=== PATIENT | female | born 1945 | race Caucasian/White ===

== ENCOUNTER 2017-04-15 14:45 | Emergency (ER) | payer OTHER ==
[~2017-04-15] VITALS: Ht 160 cm; Wt 74.0 kg
[~2017-04-15 14:45] MED LIST: CALC600T9 PO; FLUO20CA34 PO; LEVO112T4 PO; OXYC-57 PO; PHEN37.585 PO
[2017-04-15 14:49] VITALS: TEMP 36.2; Ht 160 cm; Wt 74.0 kg
[2017-04-15] MEDS ORDERED: HYDROCODONE/ACETAMIN 5/325MG TAB PO ONE (15:45)
--- NOTE | 2017-04-15 16:00 | DIAGNOSTIC IMAGING REPORT ---
RIGHT SHOULDER 4 VIEWS; RIGHT HUMERUS 2 VIEWS CLINICAL HISTORY: Fall with right arm pain. FINDINGS: 4 views of the right shoulder with AP and lateral views of the right humerus are compared to right shoulder radiographs dated 06/01/2013. The skeletal structures are osteopenic. A right shoulder arthroplasty is in near anatomic alignment. No fracture or dislocation is seen in the right shoulder. Mild productive degenerative change is seen at the acromioclavicular joint. No humeral fracture is identified. The elbow joint is grossly maintained. The overlying soft tissues are within normal limits. The partially imaged right lung parenchyma appears clear. Healed right-sided rib fractures are noted. IMPRESSION: 1. There is no radiographic evidence of fracture or dislocation in the right shoulder noting an arthroplasty in place. 2. There is no radiographic evidence of right humeral fracture. Electronically signed by: Nick Palacios M.D. 04/15/2017 3:58 PM Dictated Date/Time: 04/15/2017 3:56 PM
--- NOTE | 2017-04-15 16:09 | EMERGENCY ROOM VISIT NOTE ---
ED Visit Note First contact with patient: 15:11 The patient was seen and examined with Celestine Fontaine PA-C. I agree with the history, physical and findings. Please see the note for disposition and details.
[2017-04-15] MEDS ORDERED: PHEN30CA PO (16:21)
[2017-04-15] MEDS ORDERED: LEVO100T7 PO (16:21)
[2017-04-15] MEDS ORDERED: FLUO20CA36 PO (16:21)
[2017-04-15] MEDS ORDERED: VITA600C4 PO (16:22)
[2017-04-15 16:45] VITALS: BP 160/88; PULSE 93; O2SAT 99
--- NOTE | 2017-04-15 23:40 | EMERGENCY ROOM VISIT NOTE ---
ED Visit Note First contact with patient: 15:11 Chief Complaint: Right shoulder pain. History of Present Illness: Ms. Pro is a 72-year-old white female who ambulates into the ED complaining of right shoulder and right proximal humerus pain. Historically patient reports she has had bilateral arthroplasties of the shoulders done approximately [address] Betancur. She has had no post surgical complications. Patient reports approximately 2 hours ago she was yelling at her cats and slipped and fell onto the floor. She reports that she fell onto her back and did strike her head at the time of the fall. She reports no loss of consciousness and since the fall she has been having no symptoms of head injury and denies neck and thoracic back pain. Currently she is placed in her discomfort over the humeral head and the distal aspect of the humerus just above the shoulder. She describes her pain as a throbbing and achy sensation. She rates her discomfort 5/10. Her pain worsens with all movements of the shoulder and palpation of the areas involved. She has not identified any alleviating factors related to the pain. She has not taken any medications for pain prior to arrival at the hospital. She denies any associated elbow pain, forearm pain, wrist pain, hand weakness/numbness/ tingling. Review of Systems: As noted above in history of present illness. 8 body systems were reviewed and found to be negative as noted above. Past Medical History: As previously noted and status post right hip arthroplasty , cholecystectomy and appendectomy. Current Medications: Medications Dose Route/Sig Max Daily Dose Days Date Category Dose Instructions Vitamin E 600 Unit Cap 600 Units PO DAILY 04/15/17 Reported Levothyroxine Sodium 100 Mcg Tab 100 Mcg PO DAILY 04/15/17 Reported Phentermine Hcl 30 Mg Cap 30 Mg PO DAILY 04/15/17 Reported Fluoxetine HCl 20 Mg Cap 20 Mg PO DAILY 04/15/17 Reported Calcium + D (Calcium Carbonate-Vitamin D) 1 Tab Tab 1 Tab PO BID 05/03/13 Reported Percocet 5MG/325MG (Oxycodone/Acetaminophen) Tab 1-2 Tablet PO Q4-6H PRN 01/22/13 Rx PAIN Allergies to Medications: Patient denies. Social History: Patient is not employed; she lives with her and feels safe in her home environment; she denies tobacco use and admits to alcohol use. Physical Examination: Vital Signs: Date Time Temp Pulse Resp B/P (MAP) Pulse Ox O2 Delivery O2 Flow Rate FiO2 04/15/17 16:45 93 18 160/88 99 04/15/17 14:49 36.2 93 18 160/89 99 GENERAL: 72-year-old female in mild to moderate distress due to pain, nontoxic- appearing, afebrile and hemodynamically stable. NEUROLOGICAL: Awake, alert and oriented to person, place and time. Answering questions appropriately and following commands. Normal gait. Cranial nerves II through XII grossly intact. Good short-term and long-term recall. No focal motor or sensory deficits. SKIN: Warm, dry and pink. No soft tissue trauma noted. HEENT: Atraumatic and normocephalic. Skull: No bony deformity, crepitus or ecchymosis. Mild tenderness over the occipital scalp. No raccoons eyes or ellington signs. No drainage from the ears of the nostril; no hemotympanum. Face : No bony deformity, bony crepitus, swelling or ecchymosis. PERRLA. EOMI without nystagmus. Sclera white and conjunctiva pink. No malocclusion. No intraoral trauma. Airway patent. Speech is normal and clear. Trachea midline. No jugular venous distention. BACK: No tenderness over the bony cervical, thoracic and lumbar spine. No tenderness throughout the paraspinous muscles. Full range of motion of the cervical spine. THORAX: Lungs sounds are clear to auscultation and equal bilaterally with symmetrical chest wall. No crepitus, tenderness, subcutaneous air or deformities noted. ABDOMEN: Flat, soft and nontender. Positive bowel sounds in all quadrants. No guarding, rigidity or organomegaly. RIGHT UPPER EXTREMITY: Right: No gross bony deformity. Mild tenderness over the humeral head. No tenderness over the clavicle, scapula or proximal humerus. She refuses to do range of motion exercise at the shoulder due to pain. Additionally there is tenderness over the medial aspect of the distal humerus without bony deformity, bony crepitus, swelling or ecchymosis. With the shoulder stabilized she has full range of motion in flexion and extension of the elbow and pronation and supination of the forearm. No tenderness in the right wrist, hand or fingers. Throughout the arm skin was warm and pink and capillary refill is brisk. She is able to distinguish light sensations to all dermatomes. ED Course: Patient is assessed as noted above. Patient's medication list was reviewed. Patient was given ice and one Thornton tablet 5/325 mg by mouth for pain. Additionally she was given ice for pain and discomfort. Right Shoulder X-Rays: Were read by myself and the radiologist showing no evidence of fracture dislocation of the right shoulder. Arthroplasty was noted to be in place. Right Humerus X-Rays: Were read by myself and the radiologist showing no acute fractures or dislocations. Patient was placed in a shoulder immobilizer. Patient's case was reviewed with Dr. Ortiz; he independently assessed the patient we agreed on diagnostic approach, treatment, disposition and plan. Patient was educated about today's findings and instructed on her treatment plan ; she verbalized understanding and agreement with this plan. Clinical Impression: Right shoulder pain. Right proximal humerus pain. Status post fall. Disposition: Patient discharged home in stable condition via taxi; she was reassessed and subjectively reported she was feeling better and rated her discomfort 4/10. Plan: Patient was encouraged to continue her current medications as prescribed including her recently prescribed Percocet for pain by her PCP. Patient was encouraged to use ice over areas of pain and/or swelling 5-6 times a day for 20-30 minutes. Patient was encouraged to use sling for 3-6 days or until pain-free. Patient was encouraged to follow-up with orthopedics if no better in 7 days. Patient was encouraged to return to the ED for worsening/uncontrolled pain, uncontrolled swelling, arm weakness/numbness/tingling or any new/concerning symptoms.
== END 2017-04-15 16:45 | disposition home or self-care (01) ==
LOC: C.EDB 14:46 → C.EDD 16:45
DX: M25.511 Pain in right shoulder (principal); W01.0XXA Fall on same level from slipping, tripping and stumbling without subsequent striking against object, initial encounter; Y92.019 Unspecified place in single-family (private) house as the place of occurrence of the external cause; Z96.611 Presence of right artificial shoulder joint; Z96.612 Presence of left artificial shoulder joint

== ENCOUNTER 2017-09-16 07:06 | Inpatient (IN) | payer OTHER ==
[2017-08-22 13:48] VITALS: BMI 29.0
--- NOTE | 2017-08-22 14:16 | PAT Medication Instructions ---
Service Date Aug 22, 2017. Current Home Medication List Calcium Carbonate-Vitamin D (Calcium), 1 TAB PO QAM Fluoxetine HCl (Fluoxetine HCl), 20 MG PO QAM Hydrocodone/Acetaminophen 5MG/325MG (Elk 5MG/325MG), 1-2 TABLET PO Q4 PRN for Pain Levothyroxine Sodium (Levothyroxine Sodium), 100 MCG PO QAM Multivitamin (Multivitamin), 1 TAB PO QAM Phentermine Hcl (Phentermine Hcl), 30 MG PO QAM Vitamin E (Vitamin E), 600 UNITS PO QAM Medication Instructions For Your Scheduled Surgery - Hold the following medications 2 weeks prior to surgery: Vitamin E (Vitamin E), 600 UNITS PO QAM - Hold the following medications the morning of surgery: Calcium Carbonate-Vitamin D (Calcium), 1 TAB PO QAM Multivitamin (Multivitamin), 1 TAB PO QAM Phentermine Hcl (Phentermine Hcl), 30 MG PO QAM - Take the following medications the morning of surgery with a sip of water: Fluoxetine HCl (Fluoxetine HCl), 20 MG PO QAM Hydrocodone/Acetaminophen 5MG/325MG (Elk 5MG/325MG), 1-2 TABLET PO Q4 PRN for Pain (if needed, may be taken up to four hours before surgery) Levothyroxine Sodium (Levothyroxine Sodium), 100 MCG PO QAM - Take the following medications as scheduled the night before surgery: Hydrocodone/Acetaminophen 5MG/325MG (Elk 5MG/325MG), 1-2 TABLET PO Q4 PRN for Pain (if needed) If you have any questions please call us at [phone] or [phone] or [phone]
[~2017-09-16] VITALS: Ht 160 cm; Wt 80.9 kg
[2017-09-16] VITALS (10 sets, daily range): BP systolic 109–172; BP diastolic 51–95; PULSE 54–77; TEMP 36.4–36.8; O2SAT 96–99; Ht 160 cm; Wt 80.9 kg
[~2017-09-16 07:06] MED LIST changes: +ACETAMINOPHEN 500 MG TAB PO SCH; +CALC-51 PO; -CALC600T9 PO; +CEFAZOLIN 1000MG IV PUSH 7.5 ML IV SCH; +CEFAZOLIN 2000MG IV PUSH 15 ML IV SCH; +CeleBREX 200 MG CAP PO SCH; +DEXAMETHASONE 4 MG TAB PO SCH; +FAMOTIDINE 20 MG TAB PO SCH; -FLUO20CA34 PO; +FLUO20CA36 PO; +GABAPENTIN 300 MG CAP PO SCH; +HYDR-5688 PO; +LACTATED RINGER'S 1000ML 1,000 ML IV SCH; +LACTATED RINGER'S 1000ML 500 ML IV SCH; +LEVO100T7 PO; -LEVO112T4 PO; +METOCLOPRAMIDE HCL 10 MG TAB PO SCH; +MULT-506 PO; -OXYC-57 PO; +PHEN30CA PO; -PHEN37.585 PO; +ROPIVACAINE 5MG/ML 30 ML 150 MG, BUPIVACAINE 0.5% MPF INJ 30 ML, EpINEphrine HCL INJ 0.... INFIL SCH; +VITA600C4 PO
[2017-09-16] MEDS ORDERED: ROPIVACAINE 0.5% 5 MG/ML 30 ML VIAL ONE (07:07)
[2017-09-16] MEDS ORDERED: BUPIVACAINE 0.5 % 5 MG/1 ML PF 10ML VIAL ONE (07:08)
[2017-09-16] MEDS ORDERED: FENTANYL CITRATE INJ 50 MCG/1 ML 2 ML VIAL ONE (07:52)
[2017-09-16] MEDS ORDERED: PROPOFOL IV EMULSION 10 MG/ML 20 ML VIAL ONE (07:52)
[2017-09-16] MEDS ORDERED: LIDOCAINE HCL 2% 2 ML VIAL (20MG/ML) ONE (07:52)
--- NOTE | 2017-09-16 07:53 | History & Physical Bridge Note ---
H&P Re-Evaluation Bridge Note: I have examined the patient, reviewed the History & Physical and in the interval since the performance of the History & Physical I have noted the following changes of clinical significance: No changes noted
[2017-09-16] MEDS ORDERED: ORTHO JOINT ANESTHETIC ONE (08:06)
[2017-09-16] MEDS ORDERED: BACITRACIN 50000 UNIT VIAL ONE (08:06)
[2017-09-16] MEDS ORDERED: POVIDONE-IODINE OP SOLN 30 ML BTL ONE (08:06)
[2017-09-16] MEDS ORDERED: MIDAZOLAM HCL 1 MG/ML 2ML VIAL ONE ×2 (08:09→09:22)
[2017-09-16] MEDS ORDERED: ATROPINE SULFATE 0.1 MG/ML 5ML SYR IV PRN (08:45)
[2017-09-16] MEDS ORDERED: HYDROmorphone INJ 1 MG/ML SYR IV PRN (08:45)
[2017-09-16] MEDS ORDERED: ONDANSETRON INJ 2 MG/ML 2 ML VIAL IV PRN ×2 (08:45→12:00)
[2017-09-16] MEDS ORDERED: FENTANYL CITRATE INJ 50 MCG/1 ML 2 ML VIAL IV PRN (08:45)
[2017-09-16] MEDS ORDERED: EpHEDrine SULFATE INJ 50 MG/ML AMP IV PRN (08:45)
[2017-09-16] MEDS: TRANEXAMIC ACID INJ 1,000 MG x 2 Bags IV SCH ×4 (09:36→21:01)
[2017-09-16] MEDS ORDERED: LABETALOL HCL IV 5 MG/ML 20ML ONE (10:12)
[2017-09-16] MEDS ORDERED: EpHEDrine SULFATE 50MG/5ML SYR ONE (10:42)
--- NOTE | 2017-09-16 11:11 | [facility] Operative Report ---
Operative Report Operative Date Sep 16, 2017. Pre-Operative Diagnosis Left Knee Osteoarthritis Post-Operative Diagnosis Same Procedure(s) Performed Left Total Knee Arthroplasty, Cemented Surgeon Dr. Rubin Victoria Packing And Stamping Machine Operator Surgeon(s) Manjit Gardiner PA-C Estimated Blood Loss 20ml Specimens Permanent Solution: A.) Left Knee Bone and Tissue Drains 2 Hemovac Anesthesia Type MAC Spinal Regional Complication(s) none Disposition Recovery Room / PACU Indications The patient is a 72-year-old female long-standing osteophytic of the left knee. She has failed conservative measures including injection and anti- inflammatories and rehab. She wishes to proceed with a left total knee arthroplasty. Description of Procedure Risks benefits and alternatives of surgery including but not limited to infection, DVT, pain, stiffness, need for surgery, damage to blood vessels, damage to nerves or risks of anesthesia were discussed with the patient and they wished to proceed. The patient was identified and the laterality was confirmed and marked. They received a preoperative antibiotic as well as a spinal anesthetic and an abductor canal block. A well-padded tourniquet was applied and then the limb was prepped and draped in standard manner with ChloraPrep. The limb was exsanguinated and the tourniquet was inflated. I made a standard anterior incision. I sharply incised the skin then utilized Bovie electrocautery as well as the aqua mantis to achieve hemostasis. I made a medial parapatellar arthrotomy and mobilized the patella laterally. I then excised the anterior horns of the medial and lateral meniscus as well as the infrapatellar fat pad. I elevated a portion of the MCL off of the tibia. I then pinned into place a patient-matched distal femoral cutting guide and made my distal femoral resection. I then pinned into place the 5 in 1 femoral cutting guide. I made my anterior, posterior and chamfer cuts. The lateral femoral condyle was significantly hypoplastic. There was minimal resection on the lateral femoral condyle initially with a size 5. I downsized to a size 4 this still gave us a good fit. I then excised the cruciates and the remaining portions of the menisci. I then pinned into place a patient-matched tibial cutting guide and made my tibial resection. I then pinned into place the tibial plate a utilizing alignment maureen to confirm rotation. I then cut for the post. Utilizing a lamina marker maker and I then removed posterior osteophytes off the femur. I then placed a trial femur into position and cut for the trochlear component. I then sequentially trialed to size the polyethylene. She had a fairly severe preoperative valgus deformity. She still was loose on the medial side. I changed to a constrained liner. I then trialed up to a size 13. I needed to release the popliteus tendon as well as piecrust and partially release the iliotibial band. This gave us much better soft tissue balancing and range of motion. I then prepared the patella with a freehand cut utilizing sagittal saw. I sized and drilled for the patella. There was lateral tracking to the patella. A lateral release was needed. The bone particularly the tibia was quite soft so I placed a small tibial post. In order to do this a sequentially reamed up to a size 14 x 100 mm stem. All the trial components were removed. The deep tissues were anesthetized with an ortho mix solution. Then with Simplex HV with gentamicin cement, I cemented my definitive components. Definitive components, Turner and Nephew Rory 2: Femur 4 Tibia 4 with a 14 x 100 mm stem Poly 13 constrained Patella 32 oval A betadine soak was performed. A deep drain was placed. The arthrotomy was closed with interrupted #1 Vicryl suture subcutaneous tissue was closed with interrupted 2-0 Vicryl suture. The skin was closed with with noah. A lopez wound VAC and Acticoat dressing were placed. Sterile dressings were applied. All needle and sponge counts were correct at the end of the procedure patient was transferred to the PACU in stable condition without apparent complication. The PA-C was necessary for assistance with procedure for assistance in positioning, prepping, draping, retraction and closure. I attest to the content of the Intraoperative Record and any orders documented therein. Any exceptions are noted below.
[2017-09-16] MEDS ORDERED: MAGNESIUM HYDROXIDE SUSP 30 ML UDC PO PRN (12:00)
[2017-09-16] MEDS ORDERED: ALUMINUM/MAGNESIUM/SIMETH (MAALOX MAX) 30 ML UDC PO PRN (12:00)
[2017-09-16] MEDS ORDERED: BISACODYL 10 MG SUPP PR PRN (12:00)
[2017-09-16] MEDS ORDERED: CEFAZOLIN IV 1,000 MG in DEXTROSE 5% 50ML 50 ML IV SCH (12:00)
--- NOTE | 2017-09-16 12:53 | Anesthesiology Progress Note ---
Anesthesia Post Op Note Date & Time Sep 16, 2017 at 12:53 Vital Signs Pain Intensity: 0 Vital Signs Past 12 Hours Date Time Temp Pulse Resp B/P (MAP) Pulse Ox O2 Delivery O2 Flow Rate FiO2 09/16/17 12:45 36.4 52 21 118/91 98 Nasal Cannula 4 09/16/17 12:35 51 13 109/60 98 Nasal Cannula 4 09/16/17 12:25 54 20 130/78 100 Nasal Cannula 09/16/17 12:15 54 14 119/92 99 Nasal Cannula 4 09/16/17 12:05 47 15 142/74 100 Oxymask 10 09/16/17 11:55 52 16 126/58 100 Oxymask 10 09/16/17 11:45 36.0 51 23 129/64 99 Oxymask 10 09/16/17 07:55 36.4 55 18 172/95 96 Room Air Notes Mental Status: alert / awake / arousable, participated in evaluation Pt Amnestic to Procedure: Yes Nausea / Vomiting: adequately controlled Pain: adequately controlled Airway Patency, RR, SpO2: stable & adequate BP & HR: stable & adequate Hydration State: stable & adequate Neuraxial Anesthesia: was administered, sensory block is resolving Anesthetic Complications: no major complications apparent
--- NOTE | 2017-09-16 12:58 | DIAGNOSTIC IMAGING REPORT ---
LEFT KNEE 2 VIEWS History: Left total knee arthroplasty. Degenerative arthritis. Postop. FINDINGS: The patient is status post a left total knee arthroplasty. The hardware is intact. No fracture or dislocation. Skin noah and surgical drains are in place. IMPRESSION: Left total knee arthroplasty. No evidence for hardware complication. Electronically signed by: Kale García M.D. 09/16/2017 12:57 PM Dictated Date/Time: 09/16/2017 12:38 PM
[2017-09-16] MEDS ORDERED: PROMETHAZINE HCL INJ 12.5 MG in SODIUM CHLORIDE 0.9% 50ML 50 ML IV PRN (13:30)
[2017-09-16] MEDS ORDERED: IV FLUIDS COMPLETED PRN (13:45)
[2017-09-16 14:48] LABS: BASO % 0.2 %; BASO ABS # 0.01 K/uL (0-0.2); EOS % 0.2 %; EOS ABS # 0.01 K/uL (0-0.5); HEMATOCRIT 40.5 % (37-47); HEMOGLOBIN 12.7 g/dL (12.0-16.0); IG# 0.02 K/uL (0.00-0.02); LYMPH % 12.9 %; LYMPH ABS # 0.69 K/uL (1.2-3.4); MEAN CELL VOLUME 100.5 fL (80-100); MEAN CORPUSCULAR HEMOGLOBIN 31.5 pg (25-34); MEAN CORPUSCULAR HGB CONC 31.4 g/dl (32-36); MEAN PLATELET VOLUME 10.5 fL (7.4-10.4); MONO % 1.9 %; NEUT % 84.4 %; NEUT ABS # 4.51 K/uL (1.4-6.5); PLATELET COUNT 204 K/uL (130-400); RED CELL DISTRIBUTION WIDTH SD 47.9 fL (36.4-46.3); WHITE BLOOD COUNT 5.34 K/uL (4.8-10.8)
[2017-09-16] MEDS ORDERED: PNEUMOCOCCAL ADMINISTRATION CHARGE ONE (15:00)
[2017-09-16] MEDS ORDERED: PNEUMOCOCCAL POLYSACCHARIDES 25 MCG/0.5 ML VIAL/SYR IM. ONE (15:00)
[2017-09-16 15:17] LABS: CALCIUM 8.5 mg/dl (8.5-10.1); CREATININE 0.83 mg/dl (0.60-1.20); POTASSIUM 3.9 mmol/L (3.5-5.1)
[2017-09-16] MEDS: D5W AND 1/2NSS + 20MEQ KCL 1,000 ML IV SCH (15:28)
[2017-09-16] MEDS: ACETAMINOPHEN 500 MG TAB PO SCH (17:11)
[2017-09-16] MEDS: FERROUS GLUCONATE 324 MG TAB PO SCH (17:11)
[2017-09-16] MEDS: CEFAZOLIN IV 1,000 MG in SYRINGE 0 ML IV SCH (17:28)
--- NOTE | 2017-09-16 18:55 | Medical Consult ---
Consultation Date of Consultation: Sep 16, 2017. Attending Physician: Rubin Victoria M.D. Reason for Consultation: Sinus arrhythmia with first-degree AV block History of Present Illness 72-year-old female history of depression, hypothyroidism, narcolepsy presenting after Left total knee arthroplasty. Patient follows with Dr. Reyes for primary care. Patient underwent a left total knee arthroplasty today under general and and spinal anesthesia. Apparently during surgery, the patient had hypotensive episode and was given labetalol IV. She was noted to have sinus bradycardia with first-degree AV block on EKG. She was then transferred to telemetry for monitoring. Evaluated the patient with present at bedside. Patient was very drowsy could not give review of systems. She appeared comfortable with oxygen supplementation by nasal cannula. I returned to her room around 6 PM. Patient was then awake alert oriented 3, in good spirits. She states she feels fine, no chest pain shortness of breath dizziness nausea palpitations. Denies other symptoms Past Medical/Surgical History Medical Problems: (1) Dehydration Status: Acute (2) Facial laceration Status: Acute (3) Fracture of left clavicle Status: Acute (4) Heme positive stool Status: Acute (5) Recurrent dislocation, right hip Status: Acute (6) Right shoulder pain Status: Acute Family History Cancer Social History Smoking Status: Never Smoker Drug Use: none Marital Status: Housing Status: lives with significant other Occupation Status: retired Allergies Coded Allergies: No Known Allergies (Unverified , 09/16/17) Current Inpatient Medications Current Inpatient Medications Medications (Trade) Dose Ordered Sig/Candido Route Start Time Stop Time Status Last Admin Dose Admin Lactated Ringer's 1,000 ml @ 15 mls/hr Q24H IV 09/16/17 06:00 09/17/17 05:59 09/16/17 08:11 15 MLS/HR Levothyroxine Sodium (Synthroid Tab) 100 mcg DAILYBB PO 09/17/17 06:00 10/17/17 05:59 Multivitamins (Multivitamin Tab) 1 tab QAM PO 09/17/17 09:00 10/17/17 08:59 Potassium Chloride/Dextrose/ Sod Cl 1,000 ml @ 100 mls/hr Q10H IV 09/16/17 13:30 09/17/17 13:29 09/16/17 15:28 100 MLS/HR Celecoxib (CeleBREX CAP) 200 mg BID PO 09/16/17 21:00 10/16/17 20:59 Oxycodone HCl (Roxicodone Immediate Rel Tab) 1 TABLET FOR PAIN RATING... Q4H PRN PO 09/16/17 12:00 09/30/17 11:59 Acetaminophen (Tylenol Tab) 1,000 mg Q8H PO 09/16/17 16:00 10/16/17 15:59 09/16/17 17:11 1,000 MG Magnesium Hydroxide (Milk Of Magnesia Susp) 30 ml Q6H PRN PO 09/16/17 12:00 10/16/17 11:59 Bisacodyl (Dulcolax Supp) 10 mg DAILY PRN UT 09/16/17 12:00 10/16/17 11:59 Senna (Senokot Tab) 17.2 mg HS PO 09/16/17 21:00 10/16/17 20:59 Docusate Sodium (coLACE CAP) 100 mg BID PO 09/16/17 21:00 10/16/17 20:59 Al Hydrox/Mg Hydrox/Simethicone (Maalox Max Susp) 15 ml Q4H PRN PO 09/16/17 12:00 10/16/17 11:59 Ondansetron HCl (Zofran Inj) 4 mg Q6H PRN IV 09/16/17 12:00 10/16/17 11:59 Ferrous Gluconate (Ferrous Gluconate Tab) 324 mg TIDM PO 09/16/17 16:45 10/16/17 16:44 09/16/17 17:11 324 MG Aspirin (Ecotrin Tab) 81 mg BID PO 09/16/17 21:00 10/16/17 20:59 Promethazine HCl 12.5 mg/Sodium Chloride 50.5 ml @ 204 mls/hr Q6H PRN IV 09/16/17 13:30 10/16/17 13:29 Cefazolin Sodium 1000 mg/Syringe 7.5 ml @ 2.5 mls/min Q8H IV 09/16/17 18:00 09/17/17 17:59 09/16/17 17:28 2.5 MLS/MIN Miscellaneous (Iv Fluids Completed) 1 ea PRN PRN N/A 09/16/17 13:45 09/16/18 13:44 Miscellaneous Information (Order Awaiting Action) 1 ea QS N/A 09/16/17 16:00 10/16/17 15:59 Review of Systems Altered systems reviewed negative except what was mentioned above. Physical Exam Date Time Temp Pulse Resp B/P (MAP) Pulse Ox O2 Delivery O2 Flow Rate FiO2 09/16/17 16:42 Nasal Cannula 2.0 09/16/17 15:55 77 125/51 (75) 97 09/16/17 15:10 61 18 118/78 (91) 99 Nasal Cannula 2.0 09/16/17 14:48 36.5 64 20 110/62 (78) 98 Nasal Cannula 2.0 09/16/17 14:17 58 14 109/74 (86) 98 Nasal Cannula 2.0 09/16/17 13:32 54 15 113/72 (86) 96 Nasal Cannula 2.0 09/16/17 13:17 36.7 56 14 127/77 (94) 97 Nasal Cannula 2.0 09/16/17 13:12 36.4 55 16 125/78 (94) 96 Nasal Cannula 2.0 09/16/17 12:55 59 12 124/78 98 Nasal Cannula 4 09/16/17 12:45 36.4 52 21 118/91 98 Nasal Cannula 4 09/16/17 12:35 51 13 109/60 98 Nasal Cannula 4 09/16/17 12:25 54 20 130/78 100 Nasal Cannula 4 09/16/17 12:15 54 14 119/92 99 Nasal Cannula 4 09/16/17 12:05 47 15 142/74 100 Oxymask 10 09/16/17 11:55 52 16 126/58 100 Oxymask 10 09/16/17 11:45 36.0 51 23 129/64 99 Oxymask 10 09/16/17 07:55 36.4 55 18 172/95 96 Room Air General Appearance: WD/WN, no apparent distress Head: normocephalic, atraumatic Eyes: normal inspection, PERRL, sclerae normal ENT: normal ENT inspection, hearing grossly normal, TMs normal, pharynx normal Neck: supple, no adenopathy, thyroid normal, no JVD, trachea midline Respiratory/Chest: chest non-tender, lungs clear, normal breath sounds, no respiratory distress, no accessory muscle use Cardiovascular: no edema, no JVD, no murmur, + bradycardia (High 50s) Abdomen/GI: normal bowel sounds Back: normal inspection, no CVA tenderness Extremities/Musculoskelatal: + pertinent finding (Heavy dressing present on the left leg with drain in place; right leg essentially normal) Neurologic/Psych: lining cementer II-XII nml as tested, no motor/sensory deficits, alert, normal mood/affect, oriented x 3 Skin: normal color, warm/dry, no rash Lymphatic: no adenopathy Laboratory Results Last 24 Hours Test 09/16/17 13:27 White Blood Count 5.34 K/uL Red Blood Count 4.03 M/uL Hemoglobin 12.7 g/dL Hematocrit 40.5 % Mean Corpuscular Volume 100.5 fL Mean Corpuscular Hemoglobin 31.5 pg Mean Corpuscular Hemoglobin Concent 31.4 g/dl Platelet Count 204 K/uL Mean Platelet Volume 10.5 fL Neutrophils (%) (Auto) 84.4 % Lymphocytes (%) (Auto) 12.9 % Monocytes (%) (Auto) 1.9 % Eosinophils (%) (Auto) 0.2 % Basophils (%) (Auto) 0.2 % Neutrophils # (Auto) 4.51 K/uL Lymphocytes # (Auto) 0.69 K/uL Monocytes # (Auto) 0.10 K/uL Eosinophils # (Auto) 0.01 K/uL Basophils # (Auto) 0.01 K/uL RDW Standard Deviation 47.9 fL RDW Coefficient of Variation 13.0 % Immature Granulocyte % (Auto) 0.4 % Immature Granulocyte # (Auto) 0.02 K/uL Sodium Level 139 mmol/L Potassium Level 3.9 mmol/L Chloride Level 108 mmol/L Carbon Dioxide Level 25 mmol/L Anion Gap 6.0 mmol/L Blood Urea Nitrogen 16 mg/dl Creatinine 0.83 mg/dl Est Creatinine Clear Calc Drug Dose 57.9 ml/min Estimated GFR () 80.5 Estimated GFR (Non- 69.5 BUN/Creatinine Ratio 19.3 Random Glucose 126 mg/dl Calcium Level 8.5 mg/dl Magnesium Level 1.9 mg/dl Assessment & Plan 72-year-old female history of depression, hypothyroidism, narcolepsy presenting after Left total knee arthroplasty. Patient follows with Dr. Sulman for primary care. Sinus bradycardia, sinus arrhythmia and first-degree AV block Likely secondary to labetalol Previous EKG for hospital records showing sinus bradycardia Repeat EKG postop showing sinus bradycardia with sinus arrhythmia and first degree AV block --Hold off on any beta blockers --Monitor closely in telemetry --Repeat EKG in the morning --Electrolytes ordered, unremarkable Prolonged QT Initial EKG showed QT of 524 Repeat EKG showing QT of 490s Hold fluoxetine Repeat EKG in a.m. Repeat loculates in the morning including magnesium Hypertensive episode Was given labetalol in the [place] Blood pressure now improved Continue to monitor Hold phentermine for now History of narcolepsy Hold phentermine in light of hypertensive episode depression Hold fluoxetine in light of prolonged QT Hypothyroidism Continue levothyroxine 100 mcg daily Status post TKA Postop day 0 Further management per Ortho DVT prophylaxis Per Ortho Thank you for this consultation. We will follow the patient with you during their hospital stay. You can reach a member of the [facility] Hospitalist Team 30/08 via pager @ .
[2017-09-16] MEDS: OXYCODONE HCL IR 5 MG TAB (IMMEDIATE RELEASE) PO PRN (19:54)
[2017-09-16] MEDS: ASPIRIN 81 MG ECTAB PO SCH (21:08)
[2017-09-16] MEDS: SENNA 8.6 MG TAB PO SCH (21:08)
[2017-09-16] MEDS: DOCUSATE SODIUM 100 MG CAP PO SCH (21:08)
[2017-09-16] MEDS: CeleBREX 200 MG CAP PO SCH (21:10)
[2017-09-17] MEDS: ACETAMINOPHEN 500 MG TAB PO SCH ×4 (00:49→23:10)
[2017-09-17] MEDS: D5W AND 1/2NSS + 20MEQ KCL 1,000 ML IV SCH ×2 (01:55→09:30)
[2017-09-17] MEDS: OXYCODONE HCL IR 5 MG TAB (IMMEDIATE RELEASE) PO PRN ×6 (01:58→22:45)
[2017-09-17] MEDS: CEFAZOLIN IV 1,000 MG in SYRINGE 0 ML IV SCH ×2 (02:00→11:18)
[2017-09-17 03:16] VITALS: BP 110/62; PULSE 66; TEMP 36.6; O2SAT 95
[2017-09-17] MEDS: LEVOTHYROXINE 100 MCG TAB PO SCH (05:42)
[2017-09-17 06:45] VITALS: BP 123/66; PULSE 55; TEMP 36.5; O2SAT 97
[2017-09-17 07:41] LABS: HEMOGLOBIN 10.2 g/dL (12.0-16.0); MEAN CELL VOLUME 98.5 fL (80-100); MEAN CORPUSCULAR HEMOGLOBIN 31.4 pg (25-34); MEAN CORPUSCULAR HGB CONC 31.9 g/dl (32-36); PLATELET COUNT 193 K/uL (130-400); RED CELL DISTRIBUTION WIDTH CV 12.8 % (11.5-14.5); RED CELL DISTRIBUTION WIDTH SD 46.6 fL (36.4-46.3); WHITE BLOOD COUNT 12.47 K/uL (4.8-10.8)
[2017-09-17] MEDS: MULTIVITAMIN TAB PO SCH (07:44)
[2017-09-17] MEDS: DOCUSATE SODIUM 100 MG CAP PO SCH ×2 (07:45→20:53)
[2017-09-17] MEDS: CeleBREX 200 MG CAP PO SCH ×2 (07:45→20:53)
[2017-09-17] MEDS: FERROUS GLUCONATE 324 MG TAB PO SCH ×3 (07:45→17:41)
[2017-09-17] MEDS: ASPIRIN 81 MG ECTAB PO SCH ×2 (07:45→20:53)
[2017-09-17 08:19] LABS: CALCIUM 8.2 mg/dl (8.5-10.1); CREATININE 0.76 mg/dl (0.60-1.20); POTASSIUM 4.8 mmol/L (3.5-5.1)
[2017-09-17] MEDS ORDERED: FLUOXETINE HCL 20 MG CAP PO SCH (09:00)
[2017-09-17] MEDS ORDERED: PHENTERMINE HCL 30 MG PO SCH (09:00)
--- NOTE | 2017-09-17 09:10 | Orthopedic Progress Note ---
Orthopedic Progress Note Date of Service Sep 17, 2017. Subjective Post OP Day: 1 Reports: feeling well, Denies: chest pain, SOB, nausea / vomiting, light headedness, calf pain Additional Notes: CURRENTLY ON TELEMETRY. POST OP BRADYCARDIA AND 1ST DEGREE BLOCK POST OP. NO COMPLAINTS. NO FURTHER EPISODES. Objective calves soft nontender, N/V intact, capillary refill less than 2 sec., dressing C /D/I (KRISHNA), A&O x3, toes mobile, hemovac drainage (305/150CC PER SHIFT) Date Time Temp Pulse Resp B/P (MAP) Pulse Ox O2 Delivery O2 Flow Rate FiO2 09/17/17 06:45 36.5 55 18 123/66 (85) 97 Room Air 09/17/17 03:16 36.6 66 18 110/62 (78) 95 Room Air 09/16/17 23:22 36.4 75 18 114/58 (76) 96 Room Air 09/16/17 20:20 36.8 60 24 121/69 (86) 96 Room Air 09/16/17 20:00 Room Air 09/16/17 16:42 Nasal Cannula 2.0 09/16/17 15:55 77 125/51 (75) 97 09/16/17 15:10 61 18 118/78 (91) 99 Nasal Cannula 2.0 09/16/17 14:48 36.5 64 20 110/62 (78) 98 Nasal Cannula 2.0 09/16/17 14:17 58 14 109/74 (86) 98 Nasal Cannula 2.0 09/16/17 13:32 54 15 113/72 (86) 96 Nasal Cannula 2.0 09/16/17 13:17 36.7 56 14 127/77 (94) 97 Nasal Cannula 2.0 09/16/17 13:12 36.4 55 16 125/78 (94) 96 Nasal Cannula 2.0 09/16/17 12:55 59 12 124/78 98 Nasal Cannula 4 09/16/17 12:45 36.4 52 21 118/91 98 Nasal Cannula 4 09/16/17 12:35 51 13 109/60 98 Nasal Cannula 4 09/16/17 12:25 54 20 130/78 100 Nasal Cannula 4 09/16/17 12:15 54 14 119/92 99 Nasal Cannula 4 09/16/17 12:05 47 15 142/74 100 Oxymask 10 09/16/17 11:55 52 16 126/58 100 Oxymask 10 09/16/17 11:45 36.0 51 23 129/64 99 Oxymask 10 Laboratory Results 24 Hours: Test 09/16/17 13:27 09/17/17 07:31 White Blood Count 5.34 K/uL Red Blood Count 4.03 M/uL Hemoglobin 12.7 g/dL 10.2 g/dL Hematocrit 40.5 % 32.0 % Mean Corpuscular Volume 100.5 fL Mean Corpuscular Hemoglobin 31.5 pg Mean Corpuscular Hemoglobin Concent 31.4 g/dl Platelet Count 204 K/uL Mean Platelet Volume 10.5 fL Neutrophils (%) (Auto) 84.4 % Lymphocytes (%) (Auto) 12.9 % Monocytes (%) (Auto) 1.9 % Eosinophils (%) (Auto) 0.2 % Basophils (%) (Auto) 0.2 % Neutrophils # (Auto) 4.51 K/uL Lymphocytes # (Auto) 0.69 K/uL Monocytes # (Auto) 0.10 K/uL Eosinophils # (Auto) 0.01 K/uL Basophils # (Auto) 0.01 K/uL Assessment & Plan Assessment: POD#1 SP LEFT TKA Plan: PT/OT DVT PROPH- ASA 81MG BID PAIN MANAGEMENT MEDICAL MANAGEMENT- WILL AWAIT THEIR EVAL TODAY. ORTHOPEDICALLY STABLE FOR TRANSFER TO [facility] [place]. DC PLANNING - PATIENT REQUESTING INPT REHAB STAY, LIKELY REFER TO [facility]. ANTICIPATE DC TOMORROW IF MEDICALLY STABLE. DC DRESSING/DRAIN IN AM.
[2017-09-17] MEDS ORDERED: FLUOXETINE HCL 20 MG CAP PO ONE (10:00)
[2017-09-17 12:42] VITALS: BP 133/63; PULSE 58; TEMP 36.7; O2SAT 98
[2017-09-17 15:25] VITALS: BP 162/81; PULSE 55; TEMP 36.5; O2SAT 98
[2017-09-17 15:28] VITALS: BP 133/63; PULSE 84; O2SAT 98
--- NOTE | 2017-09-17 17:07 | Progress Note ---
Medicine Progress Note Date & Time of Visit: Sep 17, 2017 at 17:04. Subjective seen resting in bed, comfortable in good spirits states she feels fine overall except for left knee pain when ambulating denies chest pain, dyspnea, palpitations, dizziness, nausea no drowsiness today no other symptoms Objective Last 8 Hrs Date Time Temp Pulse Resp B/P (MAP) Pulse Ox O2 Delivery O2 Flow Rate FiO2 09/17/17 15:50 Room Air 09/17/17 15:28 84 98 09/17/17 15:25 36.5 55 16 162/81 (108) 98 Room Air 09/17/17 12:52 36.7 58 18 98 09/17/17 12:45 Room Air 09/17/17 12:42 36.7 58 18 133/63 (86) 98 Room Air Physical Exam: General- oriented x 3, not in distress, speaks in sentences with no effort Head- atraumatic Eyes- anicteric ENT- oropharynx clear Neck- supple, no JVD Lungs- clear breath sounds bilaterally, no rales/wheezes Heart- regular rhythm; no murmur, normal rate- HR 60s Abdomen- normal bowel sounds, soft, nontender Extremities- no pretibial edema,left lower leg with heavy dressing in place- drain in lace, small amount of blood noted Neuro- alert, oriented x 3; no gross gocal defici Skin- warm & dry Laboratory Results: Last 24 Hours Test 09/17/17 07:31 White Blood Count 12.47 K/uL Red Blood Count 3.25 M/uL Hemoglobin 10.2 g/dL Hematocrit 32.0 % Mean Corpuscular Volume 98.5 fL Mean Corpuscular Hemoglobin 31.4 pg Mean Corpuscular Hemoglobin Concent 31.9 g/dl RDW Standard Deviation 46.6 fL RDW Coefficient of Variation 12.8 % Platelet Count 193 K/uL Mean Platelet Volume 10.0 fL Sodium Level 136 mmol/L Potassium Level 4.8 mmol/L Chloride Level 105 mmol/L Carbon Dioxide Level 26 mmol/L Anion Gap 5.0 mmol/L Blood Urea Nitrogen 17 mg/dl Creatinine 0.76 mg/dl Est Creatinine Clear Calc Drug Dose 65.4 ml/min Estimated GFR () 89.6 Estimated GFR (Non- 77.3 BUN/Creatinine Ratio 22.7 Random Glucose 133 mg/dl Calcium Level 8.2 mg/dl Magnesium Level 2.0 mg/dl Assessment & Plan 72-year-old female history of depression, hypothyroidism, narcolepsy presenting after Left total knee arthroplasty. Patient follows with Dr. Reyes for primary care. Sinus bradycardia, sinus arrhythmia and first-degree AV block Likely secondary to labetalol Previous EKG for hospital records showing sinus bradycardia 1st degree av block - 2012 and 2017 Repeat EKG postop showing sinus bradycardia with sinus arrhythmia and first degree AV block 09/17: sinus fina with 1st deg av block patient asymptomatic --Hold off on any beta blockers -- monitor Prolonged QT Initial EKG showed QT of 524 Repeat EKG showing QT of 490s 09/17: QT improved to 477 resume fluoxetine Hypertensive episode Was given labetalol in the OR Blood pressure improving Continue to monitor Hold phentermine for now History of narcolepsy Hold phentermine in light of hypertensive episode Depression resume Fluoxetine Hypothyroidism Continue levothyroxine 100 mcg daily Status post TKA Postop day 1 Further management per Ortho, including DVT prophylaxis Thank you for this consultation. We will follow the patient with you during their hospital stay. You can reach a member of the [facility] Hospitalist Team 30/08 via pager @ . Current Inpatient Medications: Current Inpatient Medications Medications (Trade) Dose Ordered Sig/Candido Route Start Time Stop Time Status Last Admin Dose Admin Levothyroxine Sodium (Synthroid Tab) 100 mcg DAILYBB PO 09/17/17 06:00 10/17/17 05:59 09/17/17 05:42 100 MCG Multivitamins (Multivitamin Tab) 1 tab QAM PO 09/17/17 09:00 10/17/17 08:59 09/17/17 07:44 1 TAB Celecoxib (CeleBREX CAP) 200 mg BID PO 09/16/17 21:00 10/16/17 20:59 09/17/17 07:45 200 MG Oxycodone HCl (Roxicodone Immediate Rel Tab) 1 TABLET FOR PAIN RATING... Q4H PRN PO 09/16/17 12:00 09/30/17 11:59 09/17/17 15:50 10 MG Acetaminophen (Tylenol Tab) 1,000 mg Q8H PO 09/16/17 16:00 10/16/17 15:59 09/17/17 15:49 1,000 MG Magnesium Hydroxide (Milk Of Magnesia Susp) 30 ml Q6H PRN PO 09/16/17 12:00 10/16/17 11:59 Bisacodyl (Dulcolax Supp) 10 mg DAILY PRN NM 09/16/17 12:00 10/16/17 11:59 Senna (Senokot Tab) 17.2 mg HS PO 09/16/17 21:00 10/16/17 20:59 09/16/17 21:08 17.2 MG Docusate Sodium (coLACE CAP) 100 mg BID PO 09/16/17 21:00 10/16/17 20:59 09/17/17 07:45 100 MG Al Hydrox/Mg Hydrox/Simethicone (Maalox Max Susp) 15 ml Q4H PRN PO 09/16/17 12:00 10/16/17 11:59 Ondansetron HCl (Zofran Inj) 4 mg Q6H PRN IV 09/16/17 12:00 10/16/17 11:59 Ferrous Gluconate (Ferrous Gluconate Tab) 324 mg TIDM PO 09/16/17 16:45 10/16/17 16:44 09/17/17 11:55 324 MG Aspirin (Ecotrin Tab) 81 mg BID PO 09/16/17 21:00 10/16/17 20:59 09/17/17 07:45 81 MG Promethazine HCl 12.5 mg/Sodium Chloride 50.5 ml @ 204 mls/hr Q6H PRN IV 09/16/17 13:30 10/16/17 13:29 Cefazolin Sodium 1000 mg/Syringe 7.5 ml @ 2.5 mls/min Q8H IV 09/16/17 18:00 09/17/17 17:59 09/17/17 11:18 2.5 MLS/MIN Miscellaneous (Iv Fluids Completed) 1 ea PRN PRN N/A 09/16/17 13:45 09/16/18 13:44 Miscellaneous Information (Order Awaiting Action) 1 ea QS N/A 09/16/17 16:00 10/16/17 15:59 Fluoxetine HCl (Prozac Cap) 20 mg QAM PO 09/18/17 09:00 10/18/17 08:59
[2017-09-17] MEDS: SENNA 8.6 MG TAB PO SCH (20:53)
[2017-09-17 23:15] VITALS: BP 165/80; PULSE 59; TEMP 36.5; O2SAT 98
[2017-09-18] MEDS: OXYCODONE HCL IR 5 MG TAB (IMMEDIATE RELEASE) PO PRN ×6 (02:29→23:37)
[2017-09-18] MEDS: LEVOTHYROXINE 100 MCG TAB PO SCH (05:40)
[2017-09-18 06:07] VITALS: BP 160/77
[2017-09-18 07:30] VITALS: BP 165/72; PULSE 61; TEMP 36.5; O2SAT 98
[2017-09-18] MEDS: FERROUS GLUCONATE 324 MG TAB PO SCH ×3 (08:14→17:34)
[2017-09-18] MEDS: DOCUSATE SODIUM 100 MG CAP PO SCH ×2 (08:14→20:31)
[2017-09-18] MEDS: CeleBREX 200 MG CAP PO SCH ×2 (08:14→20:31)
[2017-09-18] MEDS: FLUOXETINE HCL 20 MG CAP PO SCH (08:14)
[2017-09-18] MEDS: MULTIVITAMIN TAB PO SCH (08:14)
[2017-09-18] MEDS: ASPIRIN 81 MG ECTAB PO SCH ×2 (08:14→20:31)
[2017-09-18] MEDS: ACETAMINOPHEN 500 MG TAB PO SCH ×3 (08:15→23:37)
[2017-09-18] MEDS: AMLODIPINE BESYLATE 5 MG TAB PO SCH (08:21)
[2017-09-18] MEDS ORDERED: KETOROLAC TROMETHAMINE 15 MG/ML VIAL IV. STA (09:47)
--- NOTE | 2017-09-18 10:04 | Orthopedic Progress Note ---
Orthopedic Progress Note Date of Service Sep 18, 2017. Subjective Post OP Day: 2 Reports: feeling well, Denies: chest pain, SOB, nausea / vomiting, light headedness, calf pain Additional Notes: TRANSFERRED FROM TELEMETRY YESTERDAY. NO FURTHER CARDIAC ISSUES. CURRENTLY HAVING SOME PAIN CONTROL ISSUES. RATING KNEE PAIN 25/10 SINCE THIS AM. STAT TORADOL ORDERED AND SHE IS GETTING THAT NOW. Objective calves soft nontender, N/V intact, capillary refill less than 2 sec., incision C /D/I, A&O x3, toes mobile, hemovac drainage (hemovac removed but drainage from site. dressing reinforced.) Date Time Temp Pulse Resp B/P (MAP) Pulse Ox O2 Delivery O2 Flow Rate FiO2 09/18/17 07:43 Room Air 09/18/17 07:30 36.5 61 18 165/72 (103) 98 Room Air 09/18/17 06:07 160/77 (104) 09/17/17 23:53 Room Air 09/17/17 23:15 36.5 59 17 165/80 (108) 98 Room Air 09/17/17 15:50 Room Air 09/17/17 15:28 84 98 09/17/17 15:25 36.5 55 16 162/81 (108) 98 Room Air 09/17/17 12:52 36.7 58 18 98 09/17/17 12:45 Room Air 09/17/17 12:42 36.7 58 18 133/63 (86) 98 Room Air Assessment & Plan Assessment: POD#2 SP LEFT TKA Plan: PT/OT DVT PROPH- ASA 81MG BID PAIN MANAGEMENT- JADON, CELEBREX, TYLENOL- STAT TORADOL ORDERED. MAY CONSIDER ADDING OXYCONTIN BASELINE IF CONTINUED PAIN. MEDICAL MANAGEMENT- DC PLANNING - PATIENT REQUESTING INPT REHAB STAY, LIKELY REFER TO [facility]. WILL NEED TO PLACE REFERRALS TUESDAY. KRISHNA X 7 DAYS.
[2017-09-18] MEDS: OXYCODONE HCL 10 MG TABCR (OXYCONTIN) PO SCH ×2 (10:30→20:31)
[2017-09-18] MEDS ORDERED: OXYCODONE HCL 10 MG TABCR (OXYCONTIN) PO ONE (10:33)
[2017-09-18 12:16] LABS: HEMATOCRIT 30.4 % (37-47); HEMOGLOBIN 9.6 g/dL (12.0-16.0)
--- NOTE | 2017-09-18 13:54 | Progress Note ---
Medicine Progress Note Date & Time of Visit: Sep 18, 2017 at 13:53. Subjective seen resting in bed, in good spirits reports having increased pain on the left knee from last night til this morning pain improving denies headache, dizziness, nausea/vomiting, chest pain, dyspnea, palpitations no other symptoms Objective Last 8 Hrs Date Time Temp Pulse Resp B/P (MAP) Pulse Ox O2 Delivery O2 Flow Rate FiO2 09/18/17 07:43 Room Air 09/18/17 07:30 36.5 61 18 165/72 (103) 98 Room Air 09/18/17 06:07 160/77 (104) Physical Exam: General- oriented x 3, not in distress, speaks in sentences with no effort Eyes- anicteric Neck- no JVD Lungs- clear BS bilaterally no rales/wheezes Heart- regular rhythm; no murmur, normal rate- HR 60s Abdomen- normal bowel sounds, soft, nontender Extremities- no pretibial edema,left lower leg with heavy dressing in place- drain in place, blood noted Neuro- alert, oriented x 3; no gross focal deficits Skin- warm & dry Laboratory Results: Last 24 Hours Test 09/18/17 11:54 Hemoglobin 9.6 g/dL Hematocrit 30.4 % Assessment & Plan 72-year-old female history of depression, hypothyroidism, narcolepsy presenting after Left total knee arthroplasty. Patient follows with Dr. Reyes for primary care. Sinus bradycardia, sinus arrhythmia and first-degree AV block Likely secondary to labetalol Previous EKG for hospital records showing sinus bradycardia 1st degree av block - 2012 and 2017 Repeat EKG postop showing sinus bradycardia with sinus arrhythmia and first degree AV block 09/17: sinus fina with 1st deg av block remains asymptomatic --Hold off on any beta blockers -- monitor Prolonged QT Initial EKG showed QT of 524 Repeat EKG showing QT of 490s 09/17: QT improved to 477 resumed fluoxetine Hypertensive episode Was given labetalol in the OR Blood pressure elevated today, also having pain start Amlodipine 2.5 mg po daily Hold phentermine for now History of narcolepsy Hold phentermine in light of hypertensive episode Depression resume Fluoxetine Hypothyroidism Continue levothyroxine 100 mcg daily Status post TKA Postop day 2 Further management per Ortho, including DVT prophylaxis Thank you for this consultation. We will follow the patient with you during their hospital stay. You can reach a member of the [facility] Hospitalist Team 30/08 via pager @ . Current Inpatient Medications: Current Inpatient Medications Medications (Trade) Dose Ordered Sig/Candido Route Start Time Stop Time Status Last Admin Dose Admin Levothyroxine Sodium (Synthroid Tab) 100 mcg DAILYBB PO 09/17/17 06:00 10/17/17 05:59 09/18/17 05:40 100 MCG Multivitamins (Multivitamin Tab) 1 tab QAM PO 09/17/17 09:00 10/17/17 08:59 09/18/17 08:14 1 TAB Celecoxib (CeleBREX CAP) 200 mg BID PO 09/16/17 21:00 10/16/17 20:59 09/18/17 08:14 200 MG Oxycodone HCl (Roxicodone Immediate Rel Tab) 1 TABLET FOR PAIN RATING... Q4H PRN PO 09/16/17 12:00 09/30/17 11:59 09/18/17 10:35 10 MG Acetaminophen (Tylenol Tab) 1,000 mg Q8H PO 09/16/17 16:00 10/16/17 15:59 09/18/17 08:15 1,000 MG Magnesium Hydroxide (Milk Of Magnesia Susp) 30 ml Q6H PRN PO 09/16/17 12:00 10/16/17 11:59 Bisacodyl (Dulcolax Supp) 10 mg DAILY PRN NH 09/16/17 12:00 10/16/17 11:59 Senna (Senokot Tab) 17.2 mg HS PO 09/16/17 21:00 10/16/17 20:59 09/17/17 20:53 17.2 MG Docusate Sodium (coLACE CAP) 100 mg BID PO 09/16/17 21:00 10/16/17 20:59 09/18/17 08:14 100 MG Al Hydrox/Mg Hydrox/Simethicone (Maalox Max Susp) 15 ml Q4H PRN PO 09/16/17 12:00 10/16/17 11:59 Ondansetron HCl (Zofran Inj) 4 mg Q6H PRN IV 09/16/17 12:00 10/16/17 11:59 Ferrous Gluconate (Ferrous Gluconate Tab) 324 mg TIDM PO 09/16/17 16:45 10/16/17 16:44 09/18/17 12:31 324 MG Aspirin (Ecotrin Tab) 81 mg BID PO 09/16/17 21:00 10/16/17 20:59 09/18/17 08:14 81 MG Promethazine HCl 12.5 mg/Sodium Chloride 50.5 ml @ 204 mls/hr Q6H PRN IV 09/16/17 13:30 10/16/17 13:29 Miscellaneous (Iv Fluids Completed) 1 ea PRN PRN N/A 09/16/17 13:45 09/16/18 13:44 Miscellaneous Information (Order Awaiting Action) 1 ea QS N/A 09/16/17 16:00 10/16/17 15:59 Fluoxetine HCl (Prozac Cap) 20 mg QAM PO 09/18/17 09:00 10/18/17 08:59 09/18/17 08:14 20 MG Amlodipine Besylate (Norvasc Tab) 2.5 mg QAM PO 09/18/17 09:00 10/18/17 08:59 09/18/17 08:21 2.5 MG Oxycodone HCl (Oxycontin Tab) 10 mg Q12 PO 09/18/17 10:30 10/02/17 10:29
[2017-09-18 15:36] VITALS: BP 136/74; PULSE 56; TEMP 36.5; O2SAT 96
[2017-09-18] MEDS: SENNA 8.6 MG TAB PO SCH (20:31)
[2017-09-18 23:39] VITALS: BP 152/69; PULSE 61
[2017-09-18 23:43] VITALS: BP 186/74; PULSE 62; TEMP 36.4; O2SAT 95
[2017-09-19] VITALS: BP 152/69; PULSE 61
[2017-09-19] MEDS: OXYCODONE HCL IR 5 MG TAB (IMMEDIATE RELEASE) PO PRN ×5 (04:07→22:43)
[2017-09-19] MEDS: LEVOTHYROXINE 100 MCG TAB PO SCH (06:18)
[2017-09-19 06:23] LABS: HEMATOCRIT 29.1 % (37-47)
[2017-09-19 06:38] VITALS: BP 161/70; PULSE 67; TEMP 36.5; O2SAT 97
[2017-09-19] MEDS ORDERED: CLB200 PO (07:28)
[2017-09-19] MEDS ORDERED: ACET-1138 PO (07:28)
[2017-09-19] MEDS ORDERED: RXC5 PO (07:28)
[2017-09-19] MEDS ORDERED: ASPI-320 PO (07:28)
--- NOTE | 2017-09-19 07:35 | Discharge Instructions ---
Discharge Instructions Date of Service Sep 19, 2017. Admission Reason for Admission: Unilateral Primary Osteoarthritis Left Knee Discharge Discharge Diagnosis / Problem: Left Knee osteoarthritis Discharge Goals Goal(s): Decrease discomfort, Improve function Activity Recommendations Activity Level: Up Ad Ayana Therapies: Physical Therapy, Occupational Therapy . Additional Information Patient informed of condition: Yes Advance Directives: Yes DNR: No Level of Care: Skilled Communicable Disease: No Prognosis: Stable Instructions / Follow-Up Instructions / Follow-Up ACTIVITY RECOMMENDATIONS: SELF CARE INSTRUCTIONS AFTER TOTAL KNEE REPLACEMENT A. You may need to continue a physical therapy program after discharge from the hospital. There are several options available to you. Your doctor will assist you in selecting the best one for you. 1. An out-patient facility 2 to 3 times a week for therapy or home therapy. 2. Continue working on all exercises taught to you in the hospital. Your goals should be to increase bending of your knee to 90 degrees and beyond and to fully straighten your knee. B. You may progress at your own pace from walking with a walker or crutches to a cane; then to no assistive devices. C. Make walking a part of your daily routine. Be up as much as comfortable with rest periods throughout the day. Rest with leg elevation is very important. Use the ice wrap frequently for the first 3-4 weeks. D. There are no restrictions on activities. You may ride in a car, shop, participate in magistrate judge and all social activities. E. Wear the long elastic stockings (KYLAH hose) 20 hours a day for 2 weeks after surgery. They can be removed several times a day for laundering and for a bath. F. You may shower, no tub baths until cleared by your doctor. Do not soak the wound. SPECIAL CARE INSTRUCTIONS: VERY IMPORTANT TO READ AND REVIEW A. There are a few signs you need to watch for after you are home. Call [facility] if you notice any of the followin. Increased severe knee pain. Some pain is expected especially when you exercise. 2. Increased swelling in your leg or knee; pain or swelling of the calf muscle in either lower leg. 3. Any fluid drainage from the incision. 4. Shortness of breath or chest pain. B. Please call [facility] at if you have any concerns or questions about your operation or recovery. The doctor or his nurse will return your call promptly. C. You must take antibiotics before dental work, bladder, bowel or other surgery. Your doctor will provide you with a permanent care to carry describing this precaution. IMPORTANT: * REMEMBER TO TAKE ASPIRIN, 81 MG, TWICE DAILY FOR 4 WEEKS UNLESS OTHERWISE DIRECTED. THIS IS YOUR BLOOD THINNER. * HIGH RISK PATIENTS MAY BE PRESCRIBED A STRONGER BLOOD THINNER. THIS WILL BE PROVIDED AT DISCHARGE. * CALL IF INCREASED PAIN, REDNESS, DRAINAGE OR FEVER GREATER THAT 101. * WEAR KYLAH HOSE 20 HOURS PER DAY FOR 2 WEEKS. * CHANGE DRESSING DAILY USING ABD'S. WHEN WOUND IS DRY, YOU MAY LEAVE TO THE OPEN AIR. FOLLOW UP VISIT: If appointment is not already scheduled: Please call [facility] to make a follow-up appointment for 2 weeks after your surgery at . Current Hospital Diet Patient's current hospital diet: Regular Diet Discharge Diet Recommended Diet: Regular Diet Procedures Procedures Performed: Left Total Knee Arthroplasty, Cemented Pending Studies Studies pending at discharge: no Physician Orders On Transfer Dressing Changes: Daily as noted above in instructions Vital Signs: routine Laboratory Results Hemoglobin A1c Test 08/22/17 14:34 Range/Units Estimated Average Glucose 108 mg/dl Hemoglobin A1c 5.4 4.5-5.6 % Medical Emergencies . Who to Call and When: Medical Emergencies: If at any time you feel your situation is an emergency, please call 911 immediately. . Non-Emergent Contact Non-Emergency issues call your: Surgeon Call Non-Emergent contact if: temperature is above 101, your pain is not controlled, your pain is worsening, your pain is concerning you, wound has increased drainage, wound has increased redness, wound has increased pain . . "Provider Documentation" section prepared by Celestine Momin. . Core Measure Problem Core Measures: None [place] Drug Monitoring Program Search Results: patient reviewed within database, no issues identified
--- NOTE | 2017-09-19 07:37 | Orthopedic Progress Note ---
Orthopedic Progress Note Date of Service Sep 19, 2017. Subjective Post OP Day: 3 Reports: feeling well, Denies: complaints, chest pain, SOB, calf pain Objective calves soft nontender, N/V intact, dressing C/D/I, A&O x3, toes mobile Date Time Temp Pulse Resp B/P (MAP) Pulse Ox O2 Delivery O2 Flow Rate FiO2 09/19/17 06:38 36.5 67 20 161/70 (100) 97 Room Air 09/19/17 00:00 61 152/69 (96) 09/18/17 23:43 36.4 62 18 186/74 (111) 95 Room Air 09/18/17 23:35 Room Air 09/18/17 15:36 36.5 56 16 136/74 (94) 96 Room Air 09/18/17 15:10 Room Air 09/18/17 07:43 Room Air Laboratory Results 24 Hours: Test 09/18/17 11:54 09/19/17 05:59 Hematocrit 30.4 % 29.1 % Hemoglobin 9.6 g/dL 9.0 g/dL Assessment & Plan Assessment: POD#3 SP LEFT TKA Acute Blood loss anemia-Hgb 9.0 today Plan: PT/OT DVT PROPH- ASA 81MG BID PAIN MANAGEMENT- JADON, CELEBREX, TYLENOL-Pain controlled today, much improved from yesterday MEDICAL MANAGEMENT- DC PLANNING - PATIENT REQUESTING INPT REHAB STAY, LIKELY REFER TO [facility]. WILL NEED TO PLACE REFERRALS TODAY. KRISHNA X 7 DAYS. Acute Blood loss anemia likely secondary to surgical loss vs dilutional effect.
--- NOTE | 2017-09-19 07:44 | Anesthesiology Progress Note ---
Anesthesia Post Op Note Date & Time Sep 19, 2017 at 07:43 Vital Signs Pain Intensity: 7 Vital Signs Past 12 Hours Date Time Temp Pulse Resp B/P (MAP) Pulse Ox O2 Delivery O2 Flow Rate FiO2 09/19/17 06:38 36.5 67 20 161/70 (100) 97 Room Air 09/19/17 00:00 61 152/69 (96) 09/18/17 23:43 36.4 62 18 186/74 (111) 95 Room Air 09/18/17 23:35 Room Air Notes Mental Status: alert / awake / arousable Nausea / Vomiting: adequately controlled Pain: improving with treatment Airway Patency, RR, SpO2: stable & adequate BP & HR: stable & adequate Hydration State: stable & adequate Neuraxial Anesthesia: was administered, sensory block resolved pt states she is okay where pain is at. She does not want more pain medication
[2017-09-19] MEDS: OXYCODONE HCL 10 MG TABCR (OXYCONTIN) PO SCH ×2 (08:21→20:41)
[2017-09-19] MEDS: DOCUSATE SODIUM 100 MG CAP PO SCH ×2 (08:22→20:41)
[2017-09-19] MEDS: CeleBREX 200 MG CAP PO SCH ×2 (08:22→20:41)
[2017-09-19] MEDS: FERROUS GLUCONATE 324 MG TAB PO SCH ×3 (08:22→17:10)
[2017-09-19] MEDS: FLUOXETINE HCL 20 MG CAP PO SCH (08:22)
[2017-09-19] MEDS: MULTIVITAMIN TAB PO SCH (08:22)
[2017-09-19] MEDS: ASPIRIN 81 MG ECTAB PO SCH ×2 (08:22→20:41)
[2017-09-19] MEDS: AMLODIPINE BESYLATE 5 MG TAB PO SCH (08:23)
[2017-09-19] MEDS: ACETAMINOPHEN 500 MG TAB PO SCH ×3 (08:24→23:45)
[2017-09-19 15:36] VITALS: BP 138/70; PULSE 59; TEMP 36.8; O2SAT 96
--- NOTE | 2017-09-19 18:12 | Progress Note ---
Medicine Progress Note Date & Time of Visit: Sep 19, 2017 at 18:09. Subjective seen resting in bedside chair , in good spirits states she feels fine overall ambulated in the hallways with no dizziness, chest pain, dyspnea no other symptoms Objective Last 8 Hrs Date Time Temp Pulse Resp B/P (MAP) Pulse Ox O2 Delivery O2 Flow Rate FiO2 09/19/17 15:36 36.8 59 16 138/70 (92) 96 Room Air Physical Exam: General- oriented x 3, not in distress, speaks in sentences with no effort Eyes- anicteric Neck- no JVD Lungs- clear BS bilaterally Heart- regular rhythm; no murmur, normal rate- HR 60s Abdomen- normal bowel sounds, soft, nontender Extremities- no pretibial edema,left lower leg with dressing in place- no drainage/bleeding right leg- essentially normal Neuro- alert, oriented x 3; no gross focal deficits Skin- warm & dry Laboratory Results: Last 24 Hours Test 09/19/17 05:59 Hemoglobin 9.0 g/dL Hematocrit 29.1 % Assessment & Plan 72-year-old female history of depression, hypothyroidism, narcolepsy presenting after Left total knee arthroplasty. Patient follows with Dr. Reyes for primary care. Sinus bradycardia, sinus arrhythmia and first-degree AV block Likely secondary to labetalol Previous EKG for hospital records showing sinus bradycardia 1st degree av block - 2012 and 2017 Repeat EKG postop showing sinus bradycardia with sinus arrhythmia and first degree AV block 09/17: sinus fina with 1st deg av block clinically doing well no cardiac symptoms avoid beta blockers Prolonged QT Initial EKG showed QT of 524 Repeat EKG showing QT of 490s 09/17: QT improved to 477 resumed fluoxetine Hypertensive episode Was given labetalol in the OR Blood pressure elevated post op, also having pain started Amlodipine 2.5 mg po daily BP improving monitor Hold phentermine for now History of narcolepsy Hold phentermine in light of hypertensive episode Depression resume Fluoxetine Hypothyroidism Continue levothyroxine 100 mcg daily Status post TKA stable overall Further management per Ortho, including DVT prophylaxis Thank you for this consultation. We will follow the patient with you during their hospital stay. You can reach a member of the [facility]ist Team 30/08 via pager @ . Current Inpatient Medications: Current Inpatient Medications Medications (Trade) Dose Ordered Sig/Candido Route Start Time Stop Time Status Last Admin Dose Admin Levothyroxine Sodium (Synthroid Tab) 100 mcg DAILYBB PO 09/17/17 06:00 10/17/17 05:59 09/19/17 06:18 100 MCG Multivitamins (Multivitamin Tab) 1 tab QAM PO 09/17/17 09:00 10/17/17 08:59 09/19/17 08:22 1 TAB Celecoxib (CeleBREX CAP) 200 mg BID PO 09/16/17 21:00 10/16/17 20:59 09/19/17 08:22 200 MG Oxycodone HCl (Roxicodone Immediate Rel Tab) 1 TABLET FOR PAIN RATING... Q4H PRN PO 09/16/17 12:00 09/30/17 11:59 09/19/17 13:30 10 MG Acetaminophen (Tylenol Tab) 1,000 mg Q8H PO 09/16/17 16:00 10/16/17 15:59 09/19/17 17:11 1,000 MG Magnesium Hydroxide (Milk Of Magnesia Susp) 30 ml Q6H PRN PO 09/16/17 12:00 10/16/17 11:59 Bisacodyl (Dulcolax Supp) 10 mg DAILY PRN KS 09/16/17 12:00 10/16/17 11:59 Senna (Senokot Tab) 17.2 mg HS PO 09/16/17 21:00 10/16/17 20:59 09/18/17 20:31 17.2 MG Docusate Sodium (coLACE CAP) 100 mg BID PO 09/16/17 21:00 10/16/17 20:59 09/19/17 08:22 100 MG Al Hydrox/Mg Hydrox/Simethicone (Maalox Max Susp) 15 ml Q4H PRN PO 09/16/17 12:00 10/16/17 11:59 Ondansetron HCl (Zofran Inj) 4 mg Q6H PRN IV 09/16/17 12:00 10/16/17 11:59 Ferrous Gluconate (Ferrous Gluconate Tab) 324 mg TIDM PO 09/16/17 16:45 10/16/17 16:44 09/19/17 17:10 324 MG Aspirin (Ecotrin Tab) 81 mg BID PO 09/16/17 21:00 10/16/17 20:59 09/19/17 08:22 81 MG Promethazine HCl 12.5 mg/Sodium Chloride 50.5 ml @ 204 mls/hr Q6H PRN IV 09/16/17 13:30 10/16/17 13:29 Miscellaneous (Iv Fluids Completed) 1 ea PRN PRN N/A 09/16/17 13:45 09/16/18 13:44 Miscellaneous Information (Order Awaiting Action) 1 ea QS N/A 09/16/17 16:00 10/16/17 15:59 Fluoxetine HCl (Prozac Cap) 20 mg QAM PO 09/18/17 09:00 10/18/17 08:59 09/19/17 08:22 20 MG Amlodipine Besylate (Norvasc Tab) 2.5 mg QAM PO 09/18/17 09:00 10/18/17 08:59 09/19/17 08:23 2.5 MG Oxycodone HCl (Oxycontin Tab) 10 mg Q12 PO 09/18/17 10:30 10/02/17 10:29 09/19/17 08:21 10 MG
[2017-09-19] MEDS: SENNA 8.6 MG TAB PO SCH (20:41)
[2017-09-19 23:45] VITALS: BP 132/75; PULSE 60; TEMP 36.7; O2SAT 96
[2017-09-20] MEDS: OXYCODONE HCL IR 5 MG TAB (IMMEDIATE RELEASE) PO PRN ×2 (02:51→07:34)
[2017-09-20] MEDS: LEVOTHYROXINE 100 MCG TAB PO SCH (06:03)
[2017-09-20 07:18] VITALS: BP 153/79; PULSE 59; TEMP 36.5; O2SAT 97
[2017-09-20] MEDS ORDERED: NRV5 PO (07:36)
[2017-09-20] MEDS: CeleBREX 200 MG CAP PO SCH (08:48)
[2017-09-20] MEDS: MULTIVITAMIN TAB PO SCH (08:48)
[2017-09-20] MEDS: ACETAMINOPHEN 500 MG TAB PO SCH (08:48)
[2017-09-20] MEDS: DOCUSATE SODIUM 100 MG CAP PO SCH (08:48)
[2017-09-20] MEDS: FERROUS GLUCONATE 324 MG TAB PO SCH (08:48)
[2017-09-20] MEDS: ASPIRIN 81 MG ECTAB PO SCH (08:48)
[2017-09-20] MEDS: AMLODIPINE BESYLATE 5 MG TAB PO SCH (08:49)
[2017-09-20] MEDS: FLUOXETINE HCL 20 MG CAP PO SCH (08:49)
[2017-09-20] MEDS: OXYCODONE HCL 10 MG TABCR (OXYCONTIN) PO SCH (08:52)
--- NOTE | 2017-09-20 09:14 | Orthopedic Progress Note ---
Orthopedic Progress Note Date of Service Sep 20, 2017. Subjective Post OP Day: 4 Reports: feeling well Additional Notes: Pt having pain off and on but states the pain meds are helping. Objective calves soft nontender, N/V intact, dressing C/D/I (KRISHNA dressing), A&O x3, toes mobile Date Time Temp Pulse Resp B/P (MAP) Pulse Ox O2 Delivery O2 Flow Rate FiO2 09/20/17 07:18 36.5 59 18 153/79 (103) 97 Room Air 09/19/17 23:45 36.7 60 16 132/75 (94) 96 Room Air 09/19/17 20:35 Room Air 09/19/17 15:36 36.8 59 16 138/70 (92) 96 Room Air Assessment & Plan Assessment: POD#3 SP LEFT TKA Acute Blood loss anemia Plan: PT/OT DVT PROPH- ASA 81MG BID PAIN MANAGEMENT- JADON, CELEBREX, TYLENOL MEDICAL MANAGEMENT- DC PLANNING - TO [facility] TODAY KRISHNA REMOVED DUE TO INCREASED DRAINAGE FROM DRAIN SITE THAT WAS COLLECTING UNDER THE TEGADERM PORTION OF THE DRESSING. WILL REVERT TO REGULAR DRESSING. Acute Blood loss anemia likely secondary to surgical loss vs dilutional effect. Inhouse Planning Pain Management: Celebrex, Oxycontin, PO Tylenol, Oxy IR DVT Prophylaxis: TEDs, SCDs, ASA Discharge Planning Discharge Planning: intermediate facility
[2017-09-20] MEDS ORDERED: OXYSR10 PO (09:16)
[2017-09-20 10:20] VITALS: BP 153/79; PULSE 75; TEMP 36.5; O2SAT 97
--- NOTE | 2017-09-27 09:54 | DISCHARGE SUMMARY ---
DISCHARGE DIAGNOSIS: Degenerative joint disease, left knee. SECONDARY DIAGNOSES: Depression, hypothyroidism, narcolepsy. CONSULTS: Parveen Dunaway MD COMPLICATIONS: None. PROCEDURES: Left total knee arthroplasty performed by Dr. Victoria on 09/16/2017. BRIEF HISTORY: As dictated in the history and physical. HOSPITAL SUMMARY: The patient was admitted on the above noted date and had the above noted surgery performed which she tolerated well. On her first postoperative day, she was feeling well. She was currently on telemetry for postop bradycardia and first-degree heart block. She had no complaints and no further episodes. Calves were soft and nontender. Neurovascularly intact. Dressings were clean, dry, and intact. Toes were mobile. Vital signs were stable and she was afebrile. Hemoglobin was 12.7 and she was started on physical therapy protocol and continued on DVT prophylaxis and pain management and medical management and plans were to transfer her to the orthopedic floor when okay with medicine service. By her second postoperative day, she had [facility] floor. She had no further cardiac issues. She was having some pain control issues regarding her knee pain fairly high. Some stat Toradol was ordered. Calves were soft and nontender, neurovascularly intact. Incision was clean, dry, and intact. Toes were mobile. Vital signs were stable. Blood pressure was elevated likely due to pain. OxyContin was added as baseline if continued pain and she was also continued on her oxycodone IR, Celebrex, and Tylenol, as well as IV pain medication if needed. Patient was planning for a rehab stay and it was likely going [place] [facility]. Over the next several days, she was getting better pain control and slowly progressing with her PT and by 09/20/2017, she was having pain off and on, but stated that the pain meds were helping her. Calves were soft and nontender. Neurovascularly was intact. Dressings were clean, dry, and intact. Toes were mobile, but it was noted that she was having some increased drainage around the drain holes that was covered by the KRISHNA dressing and instead of having this continue to drain underneath and decompress against the skin, the KRISHNA was removed and a regular dressing was placed. She was otherwise remaining medically stable as well as orthopedically stable and it was felt that she could be discharged to [facility] on 09/20/2017. For further review, please see chart. LABORATORY AND X-RAY DATA: As per chart. DISCHARGE INSTRUCTIONS: Patient was discharged to [facility] on 09/20/2017. DIET: Regular. ACTIVITY: Weightbearing as tolerated on the affected extremity. Follow TKA instruction sheets and special care instructions. Patient to have PT and OT protocols and follow up with Dr. Victoria in 2 weeks. Patient to call for appointment if one has not been made for you. DISCHARGE MEDICATIONS: Acetaminophen 1000 mg p.o. q. 8 hours for 21 days, amlodipine 2.5 mg p.o. q.a.m. for 30 days, aspirin 81 mg p.o. b.i.d. for 30 days, Celebrex 200 mg p.o. b.i.d. for 30 days, oxycodone 5 mg 1-2 tablets p.o. q. 4-6 hours p.r.n., OxyContin 10 mg p.o. q. 12 hours for 3 days. Resume home meds as listed and stop taking hydrocodone.
== END 2017-09-20 11:28 | DRG 470 ==
LOC: C.ACU 07:06 → C.2T 11:56 → CANRESERV 12:11 → ENRESERV 12:11 → EDBEDREQTM 12:39 → EDBEDREQ 12:39 → EDBEDREQSVC 12:39 → ENRESERV 12:54 → C.3E 09-17 12:32
PROVIDERS: ADMIT Orthopaedic Surgery; ATTEND Orthopaedic Surgery
PROC: 0SRD0J9 Replacement of Left Knee Joint with Synthetic Substitute, Cemented, Open Approach (ICD-10-PCS; principal; 2017-09-16 09:30)
DX: M17.12 Unilateral primary osteoarthritis, left knee (principal); D62 Acute posthemorrhagic anemia; E03.9 Hypothyroidism, unspecified; I44.0 Atrioventricular block, first degree; F32.9 Major depressive disorder, single episode, unspecified; G47.419 Narcolepsy without cataplexy; R00.1 Bradycardia, unspecified; I10 Essential (primary) hypertension; T44.8X5A Adverse effect of centrally-acting and adrenergic-neuron-blocking agents, initial encounter; Y92.239 Unspecified place in hospital as the place of occurrence of the external cause

== ENCOUNTER 2018-09-27 15:46 | Inpatient (IN) ==
[2018-09-27] MEDS ORDERED: ATROPINE SULFATE 0.1 MG/ML 10ML SYR IV STA (16:37)
[2018-09-27] MEDS ORDERED: MAGNESIUM SULFATE / D5W 1 GM/100 ML BAG IV ONE (16:37)
[2018-09-27] MEDS ORDERED: SODIUM CHLORIDE 0.9% 1000ML 500 ML IV ONE (16:39)
[2018-09-27 17:13] LABS: Basophils # (auto) 0.02 K/uL (0-0.2); Basophils % (auto) 0.3 %; Eosinophils # (auto) 0.08 K/uL (0-0.5); Eosinophils % (auto) 1.3 %; Hematocrit (blood only) 42.5 % (37-47); Hemoglobin 13.6 g/dL (12.0-16.0); Immature Granulocytes # (auto) 0.01 K/uL (0.00-0.02); Immature Granulocytes % (auto) 0.2 %; Lymphocytes % (auto) 16.2 %; Mean Corpuscular Volume 98.2 fL (80-100); Mean Platelet Volume 10.6 fL (7.4-10.4); Monocytes # (auto) 0.76 K/uL (0.11-0.59); Monocytes % (auto) 12.3 %; Neutrophils # (auto) 4.31 K/uL (1.4-6.5); Neutrophils % (auto) 69.7 %; Platelet Count 217 K/uL (130-400); RDW Coefficient of Variation 13.3 % (11.5-14.5); RDW Standard Deviation 48.1 fL (36.4-46.3); Red Blood Count 4.33 M/uL (4.2-5.4); White Blood Count 6.18 K/uL (4.8-10.8)
[2018-09-27 17:17] LABS: Partial Thromboplastin Ratio 0.9; Partial Thromboplastin Time 24.5 Seconds (21.0-31.0); Prothrombin Time 10.3 Seconds (9.0-12.0)
[2018-09-27] MEDS ORDERED: OPTIRAY 320 125ml IV PRN (17:23)
--- NOTE | 2018-09-27 17:34 | CT Scan Report ---
CT angio chest PE protocol CT DOSE: 1078.15 mGy.cm HISTORY: Pain PE TECHNIQUE: Multiaxial CT images of the chest were performed following the intravenous administration of contrast to evaluate the pulmonary arteries. Maximal intensity projection images were also obtaine d. A dose lowering technique was utilized adhering to the principles of ALARA. COMPARISON STUDY: None. FINDINGS: There is a normal caliber thoracic aorta with no evidence for dissection. There is no evide nce for pulmonary embolus. No pleural effusions. No pneumothorax. The liver and spleen are unremarkab le. No mediastinal or hilar lymphadenopathy. The central airways are patent. The lungs are clear. Non specific interstitial prominence both lung bases. IMPRESSION: No evidence for pulmonary embolus. Nonspecific interstitial prominence both lung bases The above report was generated using voice recognition software. It may contain grammatical, syntax or spelling errors. Electronically signed by: Wale Roger M.D. 09/27/2018 5:33 PM
[2018-09-27 17:35] LABS: Alanine Aminotransferase 40 U/L (12-78); Albumin Level 3.4 gm/dl (3.4-5.0); Aspartate Aminotransferase 38 U/L (15-37); BUN Creatinine Ratio 21.9 (10-20); Blood Urea Nitrogen 21 mg/dl (7-18); Calcium 8.7 mg/dl (8.5-10.1); Carbon Dioxide 27 mmol/L (21-32); Chloride 106 mmol/L (98-107); Creatinine Clr Calc Pharmacy 53.2 ml/min; Est GFR (African American) 68.8; Est GFR (Non-African American) 59.3; Glucose 99 mg/dl (70-99); Potassium 4.3 mmol/L (3.5-5.1); Sodium 140 mmol/L (136-145)
--- NOTE | 2018-09-27 17:39 | CT Scan Report ---
CT abd pelvis IV con only CT DOSE: HISTORY: Pain Pt /o abd pain TECHNIQUE: Multiaxial CT images of the abdomen and pelvis were performed following the use of intrave nous contrast. A dose lowering technique was utilized adhering to the principles of ALARA. COMPARISON STUDY: 08/15/2008 FINDINGS: Minimal interstitial change both lung bases. Several hepatic cysts. These a been described previously. Liver and spleen are unremarkable. Kidneys negative for hydronephrosis. Bilateral peripelvic cysts ar e present. Interval development of a 2 cm interpolar lesion right kidney. A multiphasic CT evaluation is suggested on a routine basis. Nonobstructive bowel pattern. Several scattered colonic diverticuli. No evidence for colonic divertic ulosis. No evidence for acute diverticulitis. No significant abdominal or pelvic adenopathy. Prior total right hip arthroplasty. IMPRESSION: 1. No acute process in the abdomen or pelvis. 2. Several stable hepatic cyst. 3. Interval development of a 2 cm interpolar lesion right kidney. Neoplasm must be considered with a multi phase enhanced CT evaluation of the kidneys recommended on a routine basis. 4. Scattered colonic diverticuli with no evidence for diverticulitis. The above report was generated using voice recognition software. It may contain grammatical, syntax or spelling errors. Electronically signed by: Wale Roger M.D. 09/27/2018 5:38 PM
[2018-09-27 17:42] LABS: Albumin Globulin Ratio 0.9 (0.9-2); Alkaline Phosphatase 99 U/L (45-117); Bilirubin,Total 0.4 mg/dl (0.2-1); Creatine Kinase 64 U/L (26-192); Creatine Kinase MB 1.5 ng/ml (0.5-3.6); Total Protein 7.4 gm/dl (6.4-8.2); Troponin I < 0.015 ng/ml (0-0.045)
[2018-09-27 19:05] LABS: iSTAT Creatinine 0.9 mg/dl (0.6-1.3); iSTAT Hemoglobin 13.9 g/dl (12.0-16.0); iSTAT Ionized Calcium 1.17 mmol/l (1.12-1.32); iSTAT Potassium 4.2 mEq/L (3.3-5.0)
--- NOTE | 2018-09-27 19:15 | History & Physical Report ---
Date of Service September 27, 2018 Assessment & Plan (1) Dizziness: (2) Symptomatic bradycardia: Pt with hx recurrent dizziness, palpitations with exertion. Reported early signs of tachybrady syndrome from ZIO patch on 05/[address] Garay. Pt presented with c/o intermittent dizziness and palpitations x several weeks with exertion that resolves with rest In ER patient with heart rate 40s to 60s, sinus bradycardia. She was given 500ml NSS, atropine 0.5, magnesium 1 g. Pt has remained without CP, SOB, and denies dizziness at rest. HR 50-60. TSH: 2.4, no significant electrolyte abnormality DDX: tachybrady syndrome Current P: 50-60 and is asymptomatic currently -Lyme screen negative -Hold diltiazem with current bradycardia -Pacer pads at bedside -Cardiology consult (3) Chest pain: Pt reports today had epigastric pain then mid chest pain described as squeezing sensation with associated diaphoresis that lasted approximately 20 minutes and self resolved. Symptoms started at rest and denies dizziness at time of these symptoms. Initial troponin negative. EKG without acute ST changes. CHEST PAIN R/O ACS. Risk factors: HTN, hyperlipidemia -Monitor Vitals -Repeat EKG in am -Will trend troponin -Echo -lipid panel in am (4) Abdominal pain: Episode of epigastric and CP today. No N/V/D. No current abdominal pain CT ABD/PELVIS: No acute process in the abdomen or pelvis. -Monitor for further abdominal pain (5) Paroxysmal atrial fibrillation: H/O PAF seen on ZIO patch 11/2017 . Patient was on metoprolol and Eliquis however she self stopped in 05/2018. She is now on diltiazem. Pt has continued to deny anticoagulation despite cardiology recommendations. CHADSVASC score: 3 -Hold Diltiazem secondary to bradycardia -Monitor for tachycardia -If recurrent a-fib consider anticoagulation and further discussion with pt (6) Kidney lesion, jamul, right: CT ABD/PELVIS: Several stable hepatic cyst. Interval development of a 2 cm interpolar lesion right kidney. -Pt will need further workup and imaging, consider urology evaluation when appropriate (7) HTN (hypertension): In ER BPs: 168/87 -Dose Lisinopril tonight -Hold diltiazem secondary to bradycardia as above -Monitor BP, may need to add different BP agent (8) Chronic leg pain: -Continue oxycodone (9) Hypothyroidism: TSH: 2.4 -Continue levothyroxine DVT Prophylaxis -Lovenox SQ Full Code as per discussion with pt Follows with Dr Reyes for routine care Pt was seen and care coordinated with Dr Garcia. See addendum History of Present Illness Chief Complaint: Dizziness, CP Primary Care Provider: Blake Reyes DO PT is 73 y/o F with PMH atrial fibrillation, HTN, hypothyroidism, hypersomnolence presented to ER with complaint of dizziness and chest pain. Pt reports today had epigastric pain then mid chest pain described as squeezing sensation that lasted approximately 20 minutes and self resolved. Reports symptoms started while she was sitting at the computer around noon today. Reports had diaphoresis with this however palpitations or dizziness with this episode. No prior treatment attempted. Pt states for the last several weeks will have palpitations and dizziness with exertion such as vacuuming house and will need to sit down for symptoms to resolve several minutes later and patient denies any shortness of breath or chest pain with these episodes in the past. Patient reports fatigue for several months. States sleeps 12 hours a day and then naps in afternoon. Patient has been following up with Dr. Garay - cardiology. History ZIO patch 11/2017 which showed paroxysmal atrial fibrillation. Patient was on metoprolol and Eliquis however she self stopped in 05/2018. She is now on diltiazem. She had another ZIO patch 05/2018 secondary to recurrent dizziness with reported early signs of tachybradycardia syndrome. Currently patient reports is feeling okay and denies any current chest pain, shortness of breath, palpitations, nausea, vomiting. Patient feels that she got up and walked around she would feel dizzy however denies any dizziness at rest currently. Patient denies any history of syncope. Denies fever/chills, N/V/D/C, vision changes, orthopnea, cough, sore throat, choking, otalgia, rhinorrhea, abdominal pain, paresthesias, weakness, extremity weakness, extremity edema, rashes, urinary symptoms. History echo 11/2017 with EF 55%. In ER patient with heart rate 40s to 60s, sinus bradycardia. She was given 500ml NSS, atropine 0.5, magnesium 1 g. Pt has remained without CP, SOB, and denies dizziness at rest. Allergies Allergy/AdvReac Type Severity Reaction Status Date / Time No Known Allergies Allergy Unverified 09/27/18 16:56 Home Medications Home Medications Medication Instructions Recorded Confirmed Type acetaminophen [Tylenol Extra 1,000 mg PO TID 12/13/17 09/27/18 History Strength] calcium carbonate-vitamin D3 1 tab PO QAM 12/13/17 09/27/18 History levothyroxine 100 mcg PO DAILY 12/13/17 09/27/18 History multivitamin 1 tab PO DAILY 12/13/17 09/27/18 History oxycodone 5 mg PO Q12 PRN 12/13/17 09/27/18 History diltiazem HCl 120 mg PO QAM 09/27/18 09/27/18 History fluoxetine 40 mg PO DAILY 09/27/18 09/27/18 History Past Med/Surg History Medical History Hypersomnolence (Chronic) Hypothyroidism (Chronic) HTN (hypertension) (Chronic) Paroxysmal atrial fibrillation (Chronic) Hip dislocation, right (Resolved) Arrhythmia Left knee DJD (Chronic) Traumatic hematoma of buttock (Inactive) Surgical History History of total hip replacement (Chronic) History of left knee replacement Family History Grandfather (Maternal) Breast cancer Mother Colorectal cancer Sister Ovarian cancer Social History Preferred Language: Macedonian Beliefs That Will Affect Care: None Current Living Situation: Spouse Other Information That Helps Us Care for You: No Feels Safe at Home: Yes Safety Concerns: Feels Safe At This Time Smoking Status: Never smoker Hx Alcohol Use: Yes (2-3 glasses wine a day) Alcohol type: wine Hx Substance Use: No Review of Systems Review of Systems: All systems reviewed & are unremarkable except as noted in HPI & below Physical Exam Physical Exam: General: no acute distress, mildly anxious, WDWN Head: normocephalic, atraumatic Eyes: PERRL, EOM's intact, conjunctiva non-injected, anicteric ENT: normal inspection external ears, nose, mucous membranes moist Neck: supple, trachea midline Lungs: clear, no respiratory distress, no wheezing/rhonchi/rales CV: regular rhythm, rate 52, no murmur, no JVD, no pretibial edema; chest wall non-tender to palpation Abd: normal BS, soft, non-tender Ext: no cyanosis, no calf tenderness Neuro: A&O x 3, no focal deficits noted, anxious affect Skin: warm, dry Results & Data Vital Signs (Past 12 Hours) Vital Signs Temp Pulse Resp BP Pulse Ox 09/27/18 18:15 51 L 14 159/78 H 96 09/27/18 18:00 55 L 15 154/79 H 97 09/27/18 17:45 54 L 11 L 159/75 H 97 09/27/18 17:33 59 L 14 170/77 H 98 09/27/18 17:16 58 L 13 155/75 H 96 09/27/18 17:05 61 15 168/87 H 95 09/27/18 17:00 48 L 16 96 09/27/18 16:45 46 L 16 95 09/27/18 16:30 48 L 12 159/74 H 94 09/27/18 16:05 45 L 20 143/75 H 96 09/27/18 15:51 36.4 C L 49 L 20 155/74 H 96 Laboratory Results Short CBC 09/27/18 Range/Units 16:59 WBC 6.18 (4.8-10.8) K/uL Hgb 13.6 (12.0-16.0) g/dL Hct 42.5 (37-47) % Plt Count 217 (130-400) K/uL BMP 09/27/18 16:14 Sodium 140 Potassium 4.3 Chloride 106 Carbon Dioxide 27 BUN 21 H Creatinine 0.94 Glucose 99 Calcium 8.7 Cardiac Enzymes 09/27/18 Range/Units 16:14 Total Creatine Kinase 64 (26-192) U/L CK-MB (CK-2) 1.5 (0.5-3.6) ng/ml Troponin I < 0.015 (0-0.045) ng/ml Liver Function 09/27/18 Range/Units 16:14 Total Bilirubin 0.4 (0.2-1) mg/dl AST 38 H (15-37) U/L ALT 40 (12-78) U/L Alkaline Phosphatase 99 (45-117) U/L Albumin 3.4 (3.4-5.0) gm/dl Diagnostic Findings CTA CHEST: IMPRESSION: No evidence for pulmonary embolus. Nonspecific interstitial prominence both lung bases CT ABD/PELVIS: IMPRESSION: 1. No acute process in the abdomen or pelvis. 2. Several stable hepatic cyst. 3. Interval development of a 2 cm interpolar lesion right kidney. Neoplasm must be considered with a multi phase enhanced CT evaluation of the kidneys recommended on a routine basis. 4. Scattered colonic diverticuli with no evidence for diverticulitis. ECG Rate (beats per minute): 45 Rhythm: sinus bradycardia Code Status & VTE Plan VTE Prophylaxis Plan VTE Prophylaxis will be ordered: Yes Supervising Physician Co-Signing Physician Notes Patient is a 73-year-old female with history of atrial fibrillation, hypothyroidism, hypertension and other problems presents with history of dizziness and transient chest tightness. Reports associated diaphoresis, intermittent palpitations. Patient states having generalized weakness and tiredness with minimal exertion since last few weeks she was evaluated by and had ZIO patch monitoring in the past. She was thought to have signs of tachybradycardia syndrome. She also reports having intermittent abdominal pain. Please review HPI for complete details of presentation. On exam patient is moderately built and nourished, no apparent distress, normocephalic atraumatic, lungs--minimal basal crackles at bases, S1-S2, no murmur, bradycardia, abdomen soft nontender, no pedal edema, grossly no focal neurological deficits,+ hearing aids. Patient is admitted for management of symptomatic bradycardia, dizziness. Possible tachybradycardia syndrome. Will hold AV chelo blocking agents. Lyme screen is negative. Pacer pads at bedside. Cardiology consulted for input. Monitor on telemetry. Normal thyroid function. Incidentally found will right kidney lesion. Denies any hematuria. Consider urological evaluation for possible biopsy. Work-up to rule out ACS., Less likely. Blood pressure control with lisinopril. Check orthostatics. I personally reviewed the record. Patient is interviewed and examined at bedside. Patient's care is coordinated with Magaly Patrick PA-C. Please refer to the documentation above for details of patient's presentation and for discussion of other issues.
[2018-09-27 19:29] LABS: Lyme Ab IgG w/WB Rflx Negative (Negative); Lyme Ab IgM w/WB Rflx Negative (Negative)
[2018-09-27] MEDS ORDERED: ACETAMINOPHEN 325 MG TAB PO PRN (20:24)
[2018-09-27] MEDS ORDERED: OXYCODONE HCL IR 5 MG TAB (IMMEDIATE RELEASE) PO PRN (20:24)
[2018-09-27] MEDS ORDERED: ENOXAPARIN INJ 40 MG/0.4 ML SYR SQ SCH (21:00)
[2018-09-27] MEDS ORDERED: AMLODIPINE BESYLATE 5 MG TAB PO ONE (21:40)
[2018-09-27] MEDS ORDERED: LISINOPRIL 20 MG TAB PO ONE (22:30)
--- NOTE | 2018-09-27 23:59 | Emergency Department Note ---
Entered by Cely Regalado acting as a scribe for Asael Rosa MD History of Present Illness General Chief complaint: Cardiac Assessment Stated complaint: DIZZINESS, CHEST PAIN, CARDIAC HX Time Seen by Provider: 09/27/18 16:15 Source: patient History of Present Illness Provider complaint: chest pain Onset (ago): hour(s) (this morning ) Location: chest Pain Consistency: + other (episode ) Associated symptoms: + weakness and + other (abdominal pain, dizziness, fast breathing ) The patient is a 73 year old female presents to the ED with complaints of an episode of chest pain that began earlier this morning. The patient states that this morning she felt a squeezing pain in her chest. She states that at the same time as her chest pain began, she felt abdominal pain. She states that the episode lasted for 15 minutes. The patient states the she has been weak. She states that she noticed she has been breathing fast recently. She states that she has trouble doing chores because she gets dizzy and has to sit. The patient states that she recently started taking A-fib medications. She states that her PCP is Dr. Salcido. The patient states that she stopped taking the blood thinner Eliquis because it gave her diarrhea. She states that she has never had a cardiac catheterization. The patient states that she went to the [facility] earlier today and was referred to the ED because her heart rate was 121bpm. The patient states that she drank 4 glasses of alcohol last night. Home Medications Home Medications Medication Instructions Recorded Confirmed Type acetaminophen [Tylenol Extra 1,000 mg PO TID 12/13/17 09/27/18 History Strength] calcium carbonate-vitamin D3 1 tab PO QAM 12/13/17 09/27/18 History levothyroxine 100 mcg PO DAILY 12/13/17 09/27/18 History multivitamin 1 tab PO DAILY 12/13/17 09/27/18 History oxycodone 5 mg PO Q12 PRN 12/13/17 09/27/18 History fluoxetine 40 mg PO DAILY 09/27/18 09/27/18 History aspirin 81 mg PO DAILY #30 tab 09/28/18 Rx Allergies Allergy/AdvReac Type Severity Reaction Status Date / Time No Known Allergies Allergy Unverified 09/27/18 16:56 Past Med/Surg History Medical History Hypersomnolence (Chronic) Hypothyroidism (Chronic) HTN (hypertension) (Chronic) Paroxysmal atrial fibrillation (Chronic) Hip dislocation, right (Resolved) Arrhythmia Left knee DJD (Chronic) Traumatic hematoma of buttock (Inactive) Surgical History History of total hip replacement (Chronic) History of left knee replacement Family History Grandfather (Maternal) Breast cancer Mother Colorectal cancer Sister Ovarian cancer Social History Preferred Language: Welsh Communication Ability: Effective Beliefs That Will Affect Care: None marital status: Current Living Situation: Spouse Other Information That Helps Us Care for You: No Feels Safe at Home: Yes Safety Concerns: Feels Safe At This Time Smoking Status: Never smoker Hx Alcohol Use: Yes (2-3 glasses wine a day) Alcohol type: wine Hx Substance Use: No Review of Systems See HPI for pertinent positives & negatives. and A total of 10 systems reviewed and were otherwise negative Physical Exam Vital Signs Vital Signs - 24 hr 09/27/18 15:51 09/27/18 16:05 09/27/18 16:30 Temperature 36.4 C L Temperature Source Oral Sepsis Action Taken by Nursing No Action Required Pulse Rate 49 L 45 L 48 L Pulse Rate from SpO2 Sensor 45 L Respiratory Rate 20 20 12 Respiratory Effort / Characteristics Non-Labored Spontaneous Respiratory Depth Normal Respiratory Pattern Regular Blood Pressure 155/74 H 143/75 H 159/74 H Blood Pressure Mean 101 97 102 Pulse Oximetry 96 96 94 Oxygen Delivery Method Room Air Room Air 09/27/18 16:37 09/27/18 16:45 09/27/18 17:00 Temperature Temperature Source Sepsis Action Taken by Nursing Pulse Rate 46 L 48 L Pulse Rate from SpO2 Sensor Respiratory Rate 16 16 Respiratory Effort / Characteristics Respiratory Depth Respiratory Pattern Blood Pressure Blood Pressure Mean Pulse Oximetry 95 96 Oxygen Delivery Method Room Air Room Air Room Air 09/27/18 17:05 09/27/18 17:16 09/27/18 17:33 Temperature Temperature Source Sepsis Action Taken by Nursing Pulse Rate 61 58 L 59 L Pulse Rate from SpO2 Sensor Respiratory Rate 15 13 14 Respiratory Effort / Characteristics Respiratory Depth Respiratory Pattern Blood Pressure 168/87 H 155/75 H 170/77 H Blood Pressure Mean 114 101 108 Pulse Oximetry 95 96 98 Oxygen Delivery Method Room Air Room Air Room Air 09/27/18 17:45 09/27/18 18:00 09/27/18 18:15 Temperature Temperature Source Sepsis Action Taken by Nursing Pulse Rate 54 L 55 L 51 L Pulse Rate from SpO2 Sensor Respiratory Rate 11 L 15 14 Respiratory Effort / Characteristics Respiratory Depth Respiratory Pattern Blood Pressure 159/75 H 154/79 H 159/78 H Blood Pressure Mean 103 104 105 Pulse Oximetry 97 97 96 Oxygen Delivery Method Room Air Room Air Room Air 09/27/18 18:30 09/27/18 18:45 09/27/18 19:00 Temperature Temperature Source Sepsis Action Taken by Nursing Pulse Rate 58 L 53 L Pulse Rate from SpO2 Sensor Respiratory Rate 15 25 H 20 Respiratory Effort / Characteristics Respiratory Depth Respiratory Pattern Blood Pressure 168/90 H 161/76 H 176/91 H Blood Pressure Mean 116 104 119 Pulse Oximetry 98 96 97 Oxygen Delivery Method Room Air Room Air Room Air GENERAL: Awake, alert, well-appearing, in no acute distress HENT: Normocephalic, atraumatic. Oropharynx unremarkable. EYES: Normal conjunctiva. Sclera non-icteric. NECK: Supple. No nuchal rigidity. FROM. No JVD. RESPIRATORY: Clear to auscultation. CARDIAC: Regular rate, normal rhythm. Extremities warm and well perfused. Pulses equal. ABDOMEN: Soft, non-distended. No tenderness to palpation. No rebound or guarding. No masses. RECTAL: Deferred. MUSCULOSKELETAL: Chest examination reveals no tenderness. The back is symmetrica l on inspection without obvious abnormality. There is no CVA tenderness to palpation. No joint edema. LOWER EXTREMITIES: Calves are equal size bilaterally and non-tender. No edema. No discoloration. NEURO: Normal sensorium. No sensory or motor deficits noted. SKIN: No rash or jaundice noted. Course 163: Past medical records reviewed. The patient was evaluated in room A9. A complete history and physical exam was performed. 1757: I reevaluated the patient at this time and she stated that she is feeling better. I discussed the test results and treatment plan with the patient. She verbally agreed and understood. 1749: I discussed the patient's case with Magaly Patrick PA-C. She informed me that Abigail Nuñez, will evaluate the patient for further management. 1818: I spoke to Abigail Angel Manager Analysis. He was made aware of the patient's case. Consultations Consultation #1: I discussed the patient's case with Magaly Patrick PA-C. She informed me that Abigail Nuñez, will evaluate the patient for further management. Time: 17:50 Consultation #2: I spoke to Abigail Angel Manager Analysis. He was made aware of the patient's case. Time: 18:19 Administered Medications Discontinued Medications Acetaminophen (Tylenol) 650 mg PO Q4H PRN PRN Reason: Pain or Fever Stop: 10/27/18 20:23 Last Admin: 09/27/18 20:35 Dose: 650 mg Documented by: [id number] Amlodipine Besylate (Norvasc) 5 mg PO NOW ONE Stop: 09/27/18 21:41 Last Admin: 09/27/18 22:10 Dose: Not Given Documented by: [id number] Atropine Sulfate (Atropine Sulfate) 0.5 mg IV NOW STA Stop: 09/27/18 16:38 Last Admin: 09/27/18 16:57 Dose: 0.5 mg Documented by: [id number] Enoxaparin Sodium (Lovenox) 40 mg SQ Q24H MILDRED Stop: 10/27/18 20:59 Last Admin: 09/27/18 21:26 Dose: 40 mg Documented by: [id number] Fluoxetine HCl (Prozac) 40 mg PO DAILY MILDRED Stop: 10/28/18 08:59 Last Admin: 09/28/18 08:46 Dose: 40 mg Documented by: [id number] Magnesium Sulfate/Dextrose (Magnesium Sulfate / D5w) 1 gm in 100 mls @ 100 mls/hr IV ONE ONE Stop: 09/27/18 17:36 Last Infusion: 09/27/18 18:23 Dose: 0 mls/hr Documented by: [id number] Admin: 09/27/18 17:02 Dose: 100 mls/hr Documented by: [id number] Sodium Chloride (Nss 1000ml) 500 mls @ 999 mls/hr IV .Q31M ONE Stop: 09/27/18 17:09 Last Infusion: 09/27/18 17:30 Dose: 0 mls/hr Documented by: [id number] Admin: 09/27/18 16:58 Dose: 999 mls/hr Documented by: [id number] Ioversol (Optiray 320 125ml) 120 ml IV ONCE PRN PRN Reason: Interaction Checking Stop: 10/01/18 17:22 Last Admin: 09/27/18 17:23 Dose: 120 ml Documented by: [id number] Levothyroxine Sodium (Synthroid) 100 mcg PO DA[facility] Stop: 10/28/18 06:29 Last Admin: 09/28/18 06:17 Dose: 100 mcg Documented by: [id number] Lisinopril (Zestril) 20 mg PO NOW ONE Stop: 09/27/18 22:31 Last Admin: 09/28/18 01:01 Dose: Not Given Documented by: [id number] Multivitamins (Multivitamin Tab) 1 tab PO DAILY MILDRED Stop: 10/28/18 08:59 Last Admin: 09/28/18 08:46 Dose: 1 tab Documented by: [id number] Multivitamins/Minerals (Caltrate Plus) 1 tab PO QAM MILDRED Stop: 10/28/18 08:59 Last Admin: 09/28/18 08:46 Dose: 1 tab Documented by: [id number] Oxycodone HCl (Roxicodone Immediate Rel) 5 mg PO Q12 PRN PRN Reason: Pain Stop: 10/11/18 20:23 Last Admin: 09/27/18 23:55 Dose: 5 mg Documented by: [id number] Medical Decision Making Differential Diagnosis Differential diagnosis: Etiologies such as shingles, musculoskeletal pain, pericarditis, myocarditis, cardiac ischemia, pericardial tamponade, pneumonia, pneumothorax, pleural effusion, hemothorax, pleurisy, aortic pathology, pulmonary embolism, intra- abdominal process, as well as others were considered. Medical Records Attestation: I reviewed the patient's medical records. Home Medications Current Medication List: was personally reviewed by me Laboratory Data Attestation: I reviewed the patient's lab results. Result diagrams: 09/28/18 04:01 09/28/18 04:01 Lab Results 09/27/18 09/27/18 09/27/18 Range/Units 16:14 16:14 16:14 WBC (4.8-10.8) K/uL RBC (4.2-5.4) M/uL Hgb (12.0-16.0) g/dL POC Hgb (12.0-16.0) g/dl Hct (37-47) % POC Hct (37-47) % MCV (80-100) fL MCH (25-34) pg MCHC (32-36) g/dL RDW Std Deviation (36.4-46.3) fL RDW Coeff of Dipesh (11.5-14.5) % Plt Count (130-400) K/uL MPV (7.4-10.4) fL Immature Gran % (Auto) % Neut % (Auto) % Lymph % (Auto) % [place] % (Auto) % Eos % (Auto) % Baso % (Auto) % Immature Gran # (Auto) (0.00-0.02) K/uL Neut # (Auto) (1.4-6.5) K/uL Lymph # (Auto) (1.2-3.4) K/uL [place] # (Auto) (0.11-0.59) K/uL Eos # (Auto) (0-0.5) K/uL Baso # (Auto) (0-0.2) K/uL PT 10.3 (9.0-12.0) Seconds INR 1.0 (0.9-1.1) APTT 24.5 (21.0-31.0) Seconds PTT Ratio 0.9 POC Sodium (135-144) mEq/L Sodium 140 (136-145) mmol/L POC Potassium (3.3-5.0) mEq/L Potassium 4.3 (3.5-5.1) mmol/L POC Chloride (101-112) mEq/L Chloride 106 (98-107) mmol/L Carbon Dioxide 27 (21-32) mmol/L POC Total CO2 (24-31) mEq/l Anion Gap 7.0 (3-11) POC Anion Gap (16-25) mmol/L POC BUN (7-18) mg/dl BUN 21 H (7-18) mg/dl Creatinine 0.94 (0.6-1.2) mg/dl POC Creatinine (0.6-1.3) mg/dl Est Cr Clr Drug Dosing 53.2 ml/min Est GFR ( Amer) 68.8 Est GFR (Non-Af Amer) 59.3 BUN/Creatinine Ratio 21.9 H (10-20) Glucose 99 (70-99) mg/dl POC Glucose (other) (70-99) mg/dl Calcium 8.7 (8.5-10.1) mg/dl POC Ioniz Calcium Ginger (1.12-1.32) mmol/l Magnesium 2.0 (1.8-2.4) mg/dl Total Bilirubin 0.4 (0.2-1) mg/dl AST 38 H (15-37) U/L ALT 40 (12-78) U/L Alkaline Phosphatase 99 (45-117) U/L Total Creatine Kinase 64 (26-192) U/L CK-MB (CK-2) 1.5 (0.5-3.6) ng/ml CK/CKMB % Calc 2.3 (0-3.0) Troponin I < 0.015 (0-0.045) ng/ml Total Protein 7.4 (6.4-8.2) gm/dl Albumin 3.4 (3.4-5.0) gm/dl Globulin 4.0 (2.5-4.0) gm/dl Albumin/Globulin Ratio 0.9 (0.9-2) Lipase 81 (73-393) U/L TSH 2.430 Cancelled (0.300-4.500) uIu/ml Ethyl Alcohol mg/dL (0-3) mg/dl Lyme Disease IgG Ab (Negative) Lyme Disease IgM Ab (Negative) 09/27/18 09/27/18 09/27/18 Range/Units 16:59 16:59 16:59 WBC 6.18 (4.8-10.8) K/uL RBC 4.33 (4.2-5.4) M/uL Hgb 13.6 (12.0-16.0) g/dL POC Hgb (12.0-16.0) g/dl Hct 42.5 (37-47) % POC Hct (37-47) % MCV 98.2 (80-100) fL MCH 31.4 (25-34) pg MCHC 32.0 (32-36) g/dL RDW Std Deviation 48.1 H (36.4-46.3) fL RDW Coeff of Dipesh 13.3 (11.5-14.5) % Plt Count 217 (130-400) K/uL MPV 10.6 H (7.4-10.4) fL Immature Gran % (Auto) 0.2 % Neut % (Auto) 69.7 % Lymph % (Auto) 16.2 % [place] % (Auto) 12.3 % Eos % (Auto) 1.3 % Baso % (Auto) 0.3 % Immature Gran # (Auto) 0.01 (0.00-0.02) K/uL Neut # (Auto) 4.31 (1.4-6.5) K/uL Lymph # (Auto) 1.00 L (1.2-3.4) K/uL [place] # (Auto) 0.76 H (0.11-0.59) K/uL Eos # (Auto) 0.08 (0-0.5) K/uL Baso # (Auto) 0.02 (0-0.2) K/uL PT (9.0-12.0) Seconds INR (0.9-1.1) APTT (21.0-31.0) Seconds PTT Ratio POC Sodium (135-144) mEq/L Sodium (136-145) mmol/L POC Potassium (3.3-5.0) mEq/L Potassium (3.5-5.1) mmol/L POC Chloride (101-112) mEq/L Chloride (98-107) mmol/L Carbon Dioxide (21-32) mmol/L POC Total CO2 (24-31) mEq/l Anion Gap (3-11) POC Anion Gap (16-25) mmol/L POC BUN (7-18) mg/dl BUN (7-18) mg/dl Creatinine (0.6-1.2) mg/dl POC Creatinine (0.6-1.3) mg/dl Est Cr Clr Drug Dosing ml/min Est GFR ( Amer) Est GFR (Non-Af Amer) BUN/Creatinine Ratio (10-20) Glucose (70-99) mg/dl POC Glucose (other) (70-99) mg/dl Calcium (8.5-10.1) mg/dl POC Ioniz Calcium Ginger (1.12-1.32) mmol/l Magnesium (1.8-2.4) mg/dl Total Bilirubin (0.2-1) mg/dl AST (15-37) U/L ALT (12-78) U/L Alkaline Phosphatase (45-117) U/L Total Creatine Kinase (26-192) U/L CK-MB (CK-2) (0.5-3.6) ng/ml CK/CKMB % Calc (0-3.0) Troponin I (0-0.045) ng/ml Total Protein (6.4-8.2) gm/dl Albumin (3.4-5.0) gm/dl Globulin (2.5-4.0) gm/dl Albumin/Globulin Ratio (0.9-2) Lipase (73-393) U/L TSH (0.300-4.500) uIu/ml Ethyl Alcohol mg/dL < 3.0 (0-3) mg/dl Lyme Disease IgG Ab Negative (Negative) Lyme Disease IgM Ab Negative (Negative) 09/27/18 Range/Units 17:11 WBC (4.8-10.8) K/uL RBC (4.2-5.4) M/uL Hgb (12.0-16.0) g/dL POC Hgb 13.9 (12.0-16.0) g/dl Hct (37-47) % POC Hct 41 (37-47) % MCV (80-100) fL MCH (25-34) pg MCHC (32-36) g/dL RDW Std Deviation (36.4-46.3) fL RDW Coeff of Dipesh (11.5-14.5) % Plt Count (130-400) K/uL MPV (7.4-10.4) fL Immature Gran % (Auto) % Neut % (Auto) % Lymph % (Auto) % [place] % (Auto) % Eos % (Auto) % Baso % (Auto) % Immature Gran # (Auto) (0.00-0.02) K/uL Neut # (Auto) (1.4-6.5) K/uL Lymph # (Auto) (1.2-3.4) K/uL [place] # (Auto) (0.11-0.59) K/uL Eos # (Auto) (0-0.5) K/uL Baso # (Auto) (0-0.2) K/uL PT (9.0-12.0) Seconds INR (0.9-1.1) APTT (21.0-31.0) Seconds PTT Ratio POC Sodium 140 (135-144) mEq/L Sodium (136-145) mmol/L POC Potassium 4.2 (3.3-5.0) mEq/L Potassium (3.5-5.1) mmol/L POC Chloride 103 (101-112) mEq/L Chloride (98-107) mmol/L Carbon Dioxide (21-32) mmol/L POC Total CO2 25 (24-31) mEq/l Anion Gap (3-11) POC Anion Gap 16.0 (16-25) mmol/L POC BUN 22 H (7-18) mg/dl BUN (7-18) mg/dl Creatinine (0.6-1.2) mg/dl POC Creatinine 0.9 (0.6-1.3) mg/dl Est Cr Clr Drug Dosing ml/min Est GFR ( Amer) Est GFR (Non-Af Amer) BUN/Creatinine Ratio (10-20) Glucose (70-99) mg/dl POC Glucose (other) 99 (70-99) mg/dl Calcium (8.5-10.1) mg/dl POC Ioniz Calcium Ginger 1.17 (1.12-1.32) mmol/l Magnesium (1.8-2.4) mg/dl Total Bilirubin (0.2-1) mg/dl AST (15-37) U/L ALT (12-78) U/L Alkaline Phosphatase (45-117) U/L Total Creatine Kinase (26-192) U/L CK-MB (CK-2) (0.5-3.6) ng/ml CK/CKMB % Calc (0-3.0) Troponin I (0-0.045) ng/ml Total Protein (6.4-8.2) gm/dl Albumin (3.4-5.0) gm/dl Globulin (2.5-4.0) gm/dl Albumin/Globulin Ratio (0.9-2) Lipase (73-393) U/L TSH (0.300-4.500) uIu/ml Ethyl Alcohol mg/dL (0-3) mg/dl Lyme Disease IgG Ab (Negative) Lyme Disease IgM Ab (Negative) Imaging Data Radiologist's Impression: Radiology results as stated below per my review and the radiologist's interpretation: CT angio chest PE protocol CT DOSE: 1078.15 mGy.cm HISTORY: Pain PE TECHNIQUE: Multiaxial CT images of the chest were performed following the intravenous administration of contrast to evaluate the pulmonary arteries. Maximal intensity projection images were also obtained. A dose lowering technique was utilized adhering to the principles of ALARA. COMPARISON STUDY: None. FINDINGS: There is a normal caliber thoracic aorta with no evidence for dissection. There is no evidence for pulmonary embolus. No pleural effusions. No pneumothorax. The liver and spleen are unremarkable. No mediastinal or hilar lymphadenopathy. The central airways are patent. The lungs are clear. Nonspecific interstitial prominence both lung bases. IMPRESSION: No evidence for pulmonary embolus. Nonspecific interstitial prominence both lung bases The above report was generated using voice recognition software. It may contain grammatical, syntax or spelling errors. Electronically signed by: Wale Roger M.D. 09/27/2018 5:[address] abd pelvis IV con only CT DOSE: HISTORY: Pain Pt /o abd pain TECHNIQUE: Multiaxial CT images of the abdomen and pelvis were performed following the use of intravenous contrast. A dose lowering technique was utilized adhering to the principles of ALARA. COMPARISON STUDY: 08/15/2008 FINDINGS: Minimal interstitial change both lung bases. Several hepatic cysts. These a been described previously. Liver and spleen are unremarkable. Kidneys negative for hydronephrosis. Bilateral peripelvic cysts are present. Interval development of a 2 cm interpolar lesion right kidney. A multiphasic CT evaluation is suggested on a routine basis. Nonobstructive bowel pattern. Several scattered colonic diverticuli. No evidence for colonic diverticulosis. No evidence for acute diverticulitis. No significant abdominal or pelvic adenopathy. Prior total right hip arthr oplasty. IMPRESSION: 1. No acute process in the abdomen or pelvis. 2. Several stable hepatic cyst. 3. Interval development of a 2 cm interpolar lesion right kidney. Neoplasm must be considered with a multi phase enhanced CT evaluation of the kidneys recommended on a routine basis. 4. Scattered colonic diverticuli with no evidence for diverticulitis. The above report was generated using voice recognition software. It may contain grammatical, syntax or spelling errors. Electronically signed by: Wale Roger M.D. 09/27/2018 5:38 PM ECG Data Attestation: I personally reviewed and interpreted this ECG as follows: Indication: chest pain Rate (beats per minute): 45 Rhythm: sinus bradycardia Findings: no ST depression and no ST elevation Blood Pressure Blood Pressure Findings: Elevated blood pressure Blood Pressure Disposition: further management by hospitalist JORGE Narrative This is a 73-year-old female who presents emergency department complaining of generalized weakness as well as a large amount of sleeping. Upon arrival to the emergency department the patient's heart rate is 40. She was given atropine for this with immediate improvement in her symptoms. Based on this I feel the patient is septic suffering from bradycardia. I did discuss her case with the hospitalist service who agreed to admit the patient. Patient was in agreement with the treatment plan. Impression & Plan Symptomatic bradycardia Discharge Plan Visit Data *Final* Discharge Date/Time: 09/27/18 19:44 Chief Complaint: Cardiac Assessment Stated Complaint: DIZZINESS, CHEST PAIN, CARDIAC HX ED Provider: Asael Rosa Discharge Problem: Symptomatic bradycardia Patient Disposition: Admitted As Inpatient Discharge Instructions Interventions: ED Discharge Assessment Last Done: 09/27/18 19:44 The scribe's documentation has been prepared under my direction and personally reviewed by me in its entirety. I confirm that the note above accurately reflects all work, treatment, procedures, and medical decision making performed by me.
[2018-09-28 04:23] LABS: Hematocrit (blood only) 38.5 % (37-47); Hemoglobin 12.8 g/dL (12.0-16.0); Mean Corpuscular Hgb Conc 33.2 g/dL (32-36); Mean Corpuscular Volume 97.2 fL (80-100); Platelet Count 199 K/uL (130-400); RDW Coefficient of Variation 13.3 % (11.5-14.5); RDW Standard Deviation 47.2 fL (36.4-46.3); Red Blood Count 3.96 M/uL (4.2-5.4); White Blood Count 5.12 K/uL (4.8-10.8)
[2018-09-28 04:39] LABS: BUN Creatinine Ratio 23.7 (10-20); Blood Urea Nitrogen 22 mg/dl (7-18); Calcium 8.4 mg/dl (8.5-10.1); Carbon Dioxide 30 mmol/L (21-32); Chloride 105 mmol/L (98-107); Creatinine Clr Calc Pharmacy 55.1 ml/min; Est GFR (African American) 71.5; Est GFR (Non-African American) 61.7; Glucose 96 mg/dl (70-99); Potassium 4.3 mmol/L (3.5-5.1); Sodium 140 mmol/L (136-145)
[2018-09-28 04:43] LABS: Chol HDL Ratio 4; Cholesterol 202 mg/dl (0-200); HDL Cholesterol 55 mg/dl; LDL Cholesterol Calculated 119 mg/dl; Triglycerides 138 mg/dl (0-150); Troponin I < 0.015 ng/ml (0-0.045); VLDL Cholesterol 28 mg/dl
[2018-09-28] MEDS ORDERED: LEVOTHYROXINE SODIUM 100 MCG TABLET PO SCH (06:30)
[2018-09-28] MEDS ORDERED: FLUOXETINE HCL 20 MG CAP PO SCH (09:00)
[2018-09-28] MEDS ORDERED: MULTIVITAMIN TAB PO SCH (09:00)
[2018-09-28] MEDS ORDERED: CALCIUM 600MG + VIT D 400 IU TAB PO SCH (09:00)
--- NOTE | 2018-09-28 09:28 | Cardiology Consultation ---
Date of Consultation September 28, 2018 Assessment & Plan (1) Chest pain: (2) Symptomatic bradycardia: (3) Paroxysmal atrial fibrillation: (4) HTN (hypertension): The patient presented with exertional symptoms including chest discomfort, tachypalpitations, shortness of breath, and diaphoresis that only occur with activity and promptly resolve with rest. A significant element of deconditioning is suspected however clinical concern noted for significant obstructive coronary artery disease. EKGs showed no acute changes. Troponin negative x3. Recommend referral for stress echocardiography on a modified Larry protocol. The patient was notably asymptomatic with atrial arrhythmias observed on outpatient monitoring. Given observed bradycardia while on diltiazem, recommend proceeding without AV chelo evelin therapy. If she continues to have bradycardia without AV chelo evelin therapy and/or become symptomatic with a tachyarrhythmias would then refer for dual-chamber pacemaker implantation followed by resumption of AV chelo evelin therapy, reserving antiarrhythmic therapy for if/when she becomes symptomatic with the tachyarrhythmias. The patient has documented atrial fibrillation with a [id number] Score of 4 points, without overt contraindications to anticoagulation. Recommend utilization of anticoagulation. Supervising Physician Co-Signing Physician Notes Supervising Physician Attestation: I have personally performed a history and physical examination on the patient. I agree with the physician stylist assistant's findings and plan as documented with the following additions. Subjective: Patient feeling well at the time of my assessment. She was seen prior to, during, and post exercise stress echocardiogram by the undersigned. Exam: Sinus bradycardia noted at rest, no significant murmur, no significant lower extremity edema Data: EKG performed 09/27/2018 at 1558 reviewed independently reveals sinus bradycardia at 45 bpm with first-degree AV block, VA interval 200 ms. Repeat EKG 09/28/2018 at 6:53 AM and reviewed independently: Sinus bradycardia at 45 bpm with first-degree AV block, VA interval 240 ms, no significant repolarization changes. Resting echocardiogram revealed normal LVEF in the range of 55 to 60%. Mild mitral regurgitation was present. Mild tricuspid regurgitation was present. There is no evidence of pulmonary hypertension. No regional wall motion abnormalities were noted. The right ventricular chamber size and systolic function was normal. An exercise stress echocardiogram was attempted. The patient states that she has difficulty walking at baseline due to multiple orthopedic complaints including knee and hip surgery. She is unable to maintain based on the treadmill at a relatively low speed of 0.8 mph, 0% incline, after a brief amount of exercise, post exercise images were obtained which were grossly normal, but the test was felt to be nondiagnostic for ischemia. Her heart rate however did improve well with exercise. The EKG at peak stress was completely nondiagnostic due to severe artifact. Assessment and Plan: Exertional shortness of breath, perhaps related to symptomatic bradycardia, on diltiazem due to history of complex atrial arrhythmias. At this time, I recommend discontinuing diltiazem. Recommend a follow-up nuclear stress test as an outpatient for further ischemia evaluation. As noted Mr. Hummel's note, she has had a history of complex atrial arrhythmias, it is not clear that she is asymptomatic from this. Her ejection fraction is normal. I am not convinced that insertion of a pacemaker would improve her prognosis at this point, and since she does not feel the fast heart rhythms or palpitations, I am not certain that combination of AV chelo blockers plus pacemaker for heart rate support would help her in terms of symptomatic relief. She expressed her concern to be on as few medications as possible, and to avoid invasive procedures such as heart catheterization or pacemaker. Summary: Discontinue diltiazem. Outpatient nuclear stress test and cardiology follow-up. I will arrange the stress test. Guero Shay, History of Present Illness Reason for Consultation: Symptomatic bradycardia Requesting Physician: Darcy Patrick PA-C Attending Physician: Shaneka Lua MD History of Present Illness History of Present Illness: Mrs. Pro is a 73-year-old female who underwent elective left total knee replacement on September 16, [address] Victoria. She was noted to be hypertensive at that time and was begun on amlodipine. At that time and in October 2017 she was noted to have an irregular heartbeat and was referred EKG and a ZIO monitor. The EKG revealed sinus rhythm with sinus arrhythmia, first-degree AV block, voltage criteria for LVH, nonspecific ST abnormality. The ZIO monitor revealed sinus rhythm with atrial ectopy, multiple runs of atrial tachycardia and paroxysmal atrial fibrillation with a rapid ventricular response. There are also episodes of wide-complex tachycardia observed which was felt to represent atrial tachycardia with aberrancy low ventricular tachycardia not excluded. Symptoms at that time occurred with sinus rhythm as well as atrial and ventricular ectopy. No correlation was noted with the patient symptoms/marker and with the tachyarrhythmias. Due to the results of the ZIO monitor the patient was started on Toprol-XL 25 mg/day and was advised to wean/discontinue phentermine (Fastin) which she has taken for many years due to her history of narcolepsy and cataplexy. Thereafter she was referred to Electrophysiology and was evaluated by Dr. Garay on November 11, 2017. At that time she had not yet started the Toprol-XL and was noted to be asymptomatic in regards to the tachyarrhythmias. Additional recommendations by Electrophysiology included initiation of Eliquis which she subsequently discontinued secondary to diarrhea and the fact that she thought that she was taking too many medications. Her [id number] Score is 4 points. In early May 2018 she return to see EP and noted self discontinuation of metoprolol due to fatigue and diarrhea. She was referred for another ZIO monitor to assess for atrial fibrillation. The follow-up Zio patch was obtained off of all AV chelo blockers. The predominant rhythm on the May 2018 ZIO Patch monitor was sinus with an average heart rate of 68 bpm. A tendency towards bradycardia was noted along with evidence of mild Tachy-Ilir Syndrome. She was also noted to have brief runs of paroxysmal atrial tachycardia, SVT with aberrancy and paroxysmal atrial fibrillation. In June 2018 the patient was started on diltiazem 120 mg/day by EP. The patient presented to the [facility] emergency room after initially presenting to urgent care due to experiencing tachypalpitations, chest discomfort, diaphoresis, shortness of breath with exertional activity. Patient attributes exertional symptoms to the heat. She notes only being able to vacuum one half of a room then having to stop and rest due to the aforementioned symptoms. The symptoms are only brought on by activity and resolve quickly with rest. Patient believes that her symptoms are secondary to the heat. She notes not having air conditioning. Interestingly, she notes partaking in water aerobics at the [facility] for one hour 3 times per week without significant d ifficulty. She has been more active of late getting the house ready for her son who will be visiting from [place]. She describes having no energy, experiencing dizziness with positional changes and/or moving too quickly. She notes sleeping 14 hours/day, 12 hours a night and having to take a 2-hour nap. She was previously advised to utilize CPAP therapy however she has refused. Past Medical/Surgical History: Atrial and ventricular arrhythmias including sensed atrial and ventricular ectopy, asymptomatic PAT, asymptomatic SVT, asymptomatic PAF. Rheumatic fever as a child Hypertension Dyslipidemia Hypothyroidism Obstructive sleep apnea Narcolepsy and cataplexy Osteoarthritis Depression Osteoporosis Status post left knee replacement in September 2017 Vertebral fracture Bilateral shoulder replacement Right hip replacement Appendectomy Hysterectomy Cholecystectomy Bilateral cataract extraction Breast reduction surgery Family History: Mother at the age of 40 with colon cancer. Maternal niece with colon cancer currently on hospice, age 50. Father in his 80s with Alzheimer's and Parkinson's. Patient has 4 brothers and 2 sisters. One brother with lung cancer. One sister has ovarian cancer. One sister has uterine cancer. Social History: Non-smoker. Alcohol: A couple glasses of wine with her evening meal. She denies illegal drug use. She is a former development editor for a technical journal. Originally from [place], moving to this area with her who was a physicist for [employer]. She has one son who lives in [place] and will be visiting next week Complete Review of Systems: Constitutional: No change in weight. No fevers, sweats, or chills. HEENT: Bilateral cataract extraction. Bilateral hearing aids. No amaurosis fugax. No history of macular degeneration or glaucoma. Pulmonary: See above. No history of asthma, COPD, or PE. Cardiac: See above. GI/Abd: Dysphasia. No melena or hematochezia. Denies liver or kidney problems. Vascular: Denies history of claudication, AAA, or carotid artery disease. Hematologic: No coagulation disorder, anemia, or abnormal bleeding. Musculoskeletal: Severe diffuse arthritis. Mechanical fall while in [place] 2 months ago. skin: No rash. Neurologic: Denies history of TIA or CVA. No near syncope or syncope. Female : See above. Endocrine: Hypothyroidism. No history of diabetes mellitus. Complete Review of Systems is as stated above, negative, or noncontributory. Data: November 10, 2017 TTE Interpretation Summary (as per Dr. Moran): The left ventricular cavity size is normal. The LV wall thickness is mildly increased (concentric). The left ventricular wall motion is normal. The qualitative LV ejection fraction is 55-59% (normal). The left ventricular diastolic function is mildly abnormal (grade I). Mild mitral regurgitation is present. EKG on presentation to the emergency room as well this morning are not currently available for review left (MUSE system is down). Continuous telemetry monitoring since admission reveals sinus rhythm/sinus bradycardia. The lowest heart rate recorded is 36 bpm during sleep. Heart rates are typically 50 to 60 bpm. No atrial fibrillation observed. Allergies Allergy/AdvReac Type Severity Reaction Status Date / Time No Known Allergies Allergy Unverified 09/27/18 16:56 Home Medications Home Medications Medication Instructions Recorded Confirmed Type acetaminophen [Tylenol Extra 1,000 mg PO TID 12/13/17 09/27/18 History Strength] calcium carbonate-vitamin D3 1 tab PO QAM 12/13/17 09/27/18 History levothyroxine 100 mcg PO DAILY 12/13/17 09/27/18 History multivitamin 1 tab PO DAILY 12/13/17 09/27/18 History oxycodone 5 mg PO Q12 PRN 12/13/17 09/27/18 History diltiazem HCl 120 mg PO QAM 09/27/18 09/27/18 History fluoxetine 40 mg PO DAILY 09/27/18 09/27/18 History Patient History Medical History Hypersomnolence (Chronic) Hypothyroidism (Chronic) HTN (hypertension) (Chronic) Paroxysmal atrial fibrillation (Chronic) Hip dislocation, right (Resolved) Arrhythmia Left knee DJD (Chronic) Traumatic hematoma of buttock (Inactive) Surgical History History of total hip replacement (Chronic) History of left knee replacement Family History Grandfather (Maternal) Breast cancer Mother Colorectal cancer Sister Ovarian cancer Social History Preferred Language: Lao Beliefs That Will Affect Care: None Current Living Situation: Spouse Other Information That Helps Us Care for You: No Feels Safe at Home: Yes Safety Concerns: Feels Safe At This Time Smoking Status: Never smoker Hx Alcohol Use: Yes (2-3 glasses wine a day) Alcohol type: wine Hx Substance Use: No Physical Exam Physical Exam: General: A&Ox3. NAD. MORONGO. HEENT: Normocephalic. Atraumatic. PER. Conjunctiva pink, sclera clear. Neck: No carotid bruits. No JVD. Heart: RRR. No murmur. No rub. No gallop. PMI is nondisplaced. Lungs: Clear to auscultation. Abdomen: +BS. Soft. Nontender. No masses or organomegaly. Extremities: No clubbing, cyanosis, or edema. Limited neurological examination is without focal deficits. Pulses: radial=2/4, posterior tibial=2/4. Results & Data Vital Signs (Past 12 Hours) Vital Signs Temp Pulse Pulse Resp BP BP Pulse Ox 09/28/18 07:09 36.8 C 45 L 18 165/75 H 96 09/28/18 03:49 36.9 C 49 L 16 158/86 H 95 09/28/18 00:15 36.4 C L 59 L 18 151/78 H 98 09/28/18 00:00 54 L 09/27/18 23:46 123/57 L 09/27/18 22:00 58 L Laboratory Results - last 24 hr 09/27/18 09/27/18 09/27/18 16:14 16:14 16:14 WBC RBC Hgb POC Hgb Hct POC Hct MCV MCH MCHC RDW Std Deviation RDW Coeff of Dipesh Plt Count MPV Immature Gran % (Auto) Neut % (Auto) Lymph % (Auto) Warrick % (Auto) Eos % (Auto) Baso % (Auto) Immature Gran # (Auto) Neut # (Auto) Lymph # (Auto) Warrick # (Auto) Eos # (Auto) Baso # (Auto) PT 10.3 INR 1.0 APTT 24.5 PTT Ratio 0.9 POC Sodium Sodium 140 POC Potassium Potassium 4.3 POC Chloride Chloride 106 Carbon Dioxide 27 POC Total CO2 Anion Gap 7.0 POC Anion Gap POC BUN BUN 21 H Creatinine 0.94 POC Creatinine Est Cr Clr Drug Dosing 53.2 Est GFR ( Amer) 68.8 Est GFR (Non-Af Amer) 59.3 BUN/Creatinine Ratio 21.9 H Glucose 99 POC Glucose (other) Calcium 8.7 POC Ioniz Calcium Ginger Magnesium 2.0 Total Bilirubin 0.4 AST 38 H ALT 40 Alkaline Phosphatase 99 Total Creatine Kinase 64 CK-MB (CK-2) 1.5 CK/CKMB % Calc 2.3 Troponin I < 0.015 Total Protein 7.4 Albumin 3.4 Globulin 4.0 Albumin/Globulin Ratio 0.9 Triglycerides Cholesterol LDL Cholesterol, Calc VLDL Cholesterol, Calc HDL Cholesterol Cholesterol/HDL Ratio Lipase 81 TSH 2.430 Cancelled Ethyl Alcohol mg/dL A. phagocytophilum DNA Lyme Disease IgG Ab Lyme Disease IgM Ab E. chaffeensis IgG Ab E. chaffeensis IgM Ab E. chaffeensis Interp E. chaffeensis Comment 09/27/18 09/27/18 09/27/18 16:59 16:59 16:59 WBC 6.18 RBC 4.33 Hgb 13.6 POC Hgb Hct 42.5 POC Hct MCV 98.2 MCH 31.4 MCHC 32.0 RDW Std Deviation 48.1 H RDW Coeff of Dipesh 13.3 Plt Count 217 MPV 10.6 H Immature Gran % (Auto) 0.2 Neut % (Auto) 69.7 Lymph % (Auto) 16.2 Warrick % (Auto) 12.3 Eos % (Auto) 1.3 Baso % (Auto) 0.3 Immature Gran # (Auto) 0.01 Neut # (Auto) 4.31 Lymph # (Auto) 1.00 L Warrick # (Auto) 0.76 H Eos # (Auto) 0.08 Baso # (Auto) 0.02 PT INR APTT PTT Ratio POC Sodium Sodium POC Potassium Potassium POC Chloride Chloride Carbon Dioxide POC Total CO2 Anion Gap POC Anion Gap POC BUN BUN Creatinine POC Creatinine Est Cr Clr Drug Dosing Est GFR ( Amer) Est GFR (Non-Af Amer) BUN/Creatinine Ratio Glucose POC Glucose (other) Calcium POC Ioniz Calcium Ginger Magnesium Total Bilirubin AST ALT Alkaline Phosphatase Total Creatine Kinase CK-MB (CK-2) CK/CKMB % Calc Troponin I Total Protein Albumin Globulin Albumin/Globulin Ratio Triglycerides Cholesterol LDL Cholesterol, Calc VLDL Cholesterol, Calc HDL Cholesterol Cholesterol/HDL Ratio Lipase TSH Ethyl Alcohol mg/dL < 3.0 A. phagocytophilum DNA Lyme Disease IgG Ab Negative Lyme Disease IgM Ab Negative E. chaffeensis IgG Ab E. chaffeensis IgM Ab E. chaffeensis Interp E. chaffeensis Comment 09/27/18 09/27/18 09/27/18 16:59 17:11 21:52 WBC RBC Hgb POC Hgb 13.9 Hct POC Hct 41 MCV MCH MCHC RDW Std Deviation RDW Coeff of Dipesh Plt Count MPV Immature Gran % (Auto) Neut % (Auto) Lymph % (Auto) Warrick % (Auto) Eos % (Auto) Baso % (Auto) Immature Gran # (Auto) Neut # (Auto) Lymph # (Auto) Warrick # (Auto) Eos # (Auto) Baso # (Auto) PT INR APTT PTT Ratio POC Sodium 140 Sodium POC Potassium 4.2 Potassium POC Chloride 103 Chloride Carbon Dioxide POC Total CO2 25 Anion Gap POC Anion Gap 16.0 POC BUN 22 H BUN Creatinine POC Creatinine 0.9 Est Cr Clr Drug Dosing Est GFR ( Amer) Est GFR (Non-Af Amer) BUN/Creatinine Ratio Glucose POC Glucose (other) 99 Calcium POC Ioniz Calcium Ginger 1.17 Magnesium Total Bilirubin AST ALT Alkaline Phosphatase Total Creatine Kinase CK-MB (CK-2) CK/CKMB % Calc Troponin I < 0.015 Total Protein Albumin Globulin Albumin/Globulin Ratio Triglycerides Cholesterol LDL Cholesterol, Calc VLDL Cholesterol, Calc HDL Cholesterol Cholesterol/HDL Ratio Lipase TSH Ethyl Alcohol mg/dL A. phagocytophilum DNA Pending Lyme Disease IgG Ab Lyme Disease IgM Ab E. chaffeensis IgG Ab Pending E. chaffeensis IgM Ab Pending E. chaffeensis Interp Pending E. chaffeensis Comment Pending 09/28/18 09/28/18 04:01 04:01 WBC 5.12 RBC 3.96 L Hgb 12.8 POC Hgb Hct 38.5 POC Hct MCV 97.2 MCH 32.3 MCHC 33.2 RDW Std Deviation 47.2 H RDW Coeff of Dipesh 13.3 Plt Count 199 MPV 10.0 Immature Gran % (Auto) Neut % (Auto) Lymph % (Auto) Warrick % (Auto) Eos % (Auto) Baso % (Auto) Immature Gran # (Auto) Neut # (Auto) Lymph # (Auto) Warrick # (Auto) Eos # (Auto) Baso # (Auto) PT INR APTT PTT Ratio POC Sodium Sodium 140 POC Potassium Potassium 4.3 POC Chloride Chloride 105 Carbon Dioxide 30 POC Total CO2 Anion Gap 5.0 POC Anion Gap POC BUN BUN 22 H Creatinine 0.91 POC Creatinine Est Cr Clr Drug Dosing 55.1 Est GFR ( Amer) 71.5 Est GFR (Non-Af Amer) 61.7 BUN/Creatinine Ratio 23.7 H Glucose 96 POC Glucose (other) Calcium 8.4 L POC Ioniz Calcium Ginger Magnesium Total Bilirubin AST ALT Alkaline Phosphatase Total Creatine Kinase CK-MB (CK-2) CK/CKMB % Calc Troponin I < 0.015 Total Protein Albumin Globulin Albumin/Globulin Ratio Triglycerides 138 Cholesterol 202 H LDL Cholesterol, Calc 119 VLDL Cholesterol, Calc 28 HDL Cholesterol 55 Cholesterol/HDL Ratio 4 Lipase TSH Ethyl Alcohol mg/dL A. phagocytophilum DNA Lyme Disease IgG Ab Lyme Disease IgM Ab E. chaffeensis IgG Ab E. chaffeensis IgM Ab E. chaffeensis Interp E. chaffeensis Comment
--- NOTE | 2018-09-28 16:12 | Hospitalist Progress Note ---
Date of Service September 28, 2018 Assessment & Plan (1) Dizziness: (2) Symptomatic bradycardia: Pt with hx recurrent dizziness, palpitations with exertion. Reported early signs of tachybrady syndrome from ZIO patch on 05/[address] Garay. Pt presented with c/o intermittent dizziness and palpitations x several weeks with exertion that resolves with rest In ER patient with heart rate 40s to 60s, sinus bradycardia. Diltiazem kept on hold Heart rate remained stable overnight Patient's symptoms of palpitation, dizzy spell, dyspnea on exertion was resolved -Lyme screen negative -Appreciate input from cardiology Patient can be discharged home, avoid AV chelo blockade, avoid calcium channel evelin Cardizem discontinued Exercise stress test was inconclusive as patient could not participate secondary to significant fatigue bilateral knee arthritis, will need nuclear stress test She is scheduled to follow-up with Dr. Garay Outpatient nuclear stress test in 3-week (3) Chest pain: No further symptoms, ambulating in the hallway without any chest discomfort chest heaviness Serial troponin negative. EKG without acute ST changes. Cardiology consult appreciated Patient nuclear stress test in 3 weeks (4) Abdominal pain: No complaint of abdominal pain tolerating diet No N/V/D. CT ABD/PELVIS: No acute process in the abdomen or pelvis. (5) Paroxysmal atrial fibrillation: H/O PAF seen on ZIO patch 11/2017 . Patient was on metoprolol and Eliquis however she self stopped in 05/2018. She is now on diltiazem. Pt has continued to deny anticoagulation despite cardiology recommendations. CHADSVASC score: 3 -Diltiazem discontinued secondary to bradycardia And is being followed with clinical ob Discussed with patient regarding anticoagulation, very reluctant to start on Eliquis as it gave her severe diarrhea Does not want extra medications "unless she absolutely have to" Discussed with patient briefly regarding risk of thromboembolic stroke, catastrophic effect with acute CVA Patient willing to have a laisha discussion with her family physician and cardiology And try different NOAC/anticoagulation with less side effect Patient is started on aspirin 81 mg daily, Consulting provider repeatedly to continue anti-platelet for future cardiac and stroke prevention benefit (6) Kidney lesion, galena, right: CT ABD/PELVIS: Several stable hepatic cyst. Interval development of a 2 cm interpolar lesion right kidney. - No urologic symptoms, no hematuria Needs outpatient urology follow-up (7) HTN (hypertension): Blood pressure stable Diltiazem discontinued secondary to symptomatic bradycardia (8) Chronic leg pain: -Continue oxycodone (9) Hypothyroidism: TSH: 2.4 -Continue levothyroxine DVT Prophylaxis -Lovenox SQ Full Code as per discussion with pt Stable to be discharged home today Family physician follow-up with Dr. Reyes Cardiology follow-up with Dr. Shay Subjective Heart rate remains stable, no episode of bradycardia noted in telemetry Diltiazem discontinued Dizzy spell or lightheadedness Appreciate input from cardiology Patient was not able to do cardiac exercise stress test secondary to fatigue, bilateral knee arthritis Will be scheduled for an outpatient nuclear stress test in 3 weeks Patient denies of any shortness of breath, no chest pain no dyspnea on exertion no palpitation Discussed with cardiology Able to be discharged home today with outpatient cardiology follow-up And is asked to discontinue diltiazem Review of Systems Review of Systems: All systems reviewed & are unremarkable except as noted in HPI & below Physical Exam Physical Exam: GENERAL: No sign of distress, HEENT: Sclera nonicteric, pink-purple bilateral equal reactive to light extraocular muscle intact Normal oral mucosa, neck: No JVD, no thyromegaly, trachea midline Lungs: Clear to auscultate, no wheeze or rales Cardiovascular: Regular S1 and S2, no murmur or gallop, no JVD, no lower extremity edema Abdomen: Soft, nontender, bowel sounds active, no hepatosplenomegaly Extremities: No rash or deformity, normal joint, Neuro: No focal neurological deficit, no dysarthria, no facial droop Psych: Alert awake oriented x3: Euthymic Skin: No rash LYMPH NODES: No cervical lymphadenopathy Results & Data Vital Signs (Past 12 Hours) Vital Signs Temp Pulse Pulse Resp BP Pulse Ox 09/28/18 15:40 36.7 C 65 18 144/74 H 97 09/28/18 15:19 63 09/28/18 11:36 36.5 C 51 L 18 178/74 H 96 09/28/18 09:42 50 L 09/28/18 07:09 36.8 C 45 L 18 165/75 H 96
--- NOTE | 2018-09-28 17:21 | Discharge Summary ---
Date of Service September 28, 2018 Admission HPI Per Admitting Provider PT is 73 y/o F with PMH atrial fibrillation, HTN, hypothyroidism, hypersomnolence presented to ER with complaint of dizziness and chest pain. Pt reports today had epigastric pain then mid chest pain described as squeezing sensation that lasted approximately 20 minutes and self resolved. Reports symptoms started while she was sitting at the computer around noon today. Reports had diaphoresis with this however palpitations or dizziness with this episode. No prior treatment attempted. Pt states for the last several weeks will have palpitations and dizziness with exertion such as vacuuming house and will need to sit down for symptoms to resolve several minutes later and patient denies any shortness of breath or chest pain with these episodes in the past. Patient reports fatigue for several months. States sleeps 12 hours a day and then naps in afternoon. Patient has been following up with Dr. Garay - cardiology. History ZIO patch 11/2017 which showed paroxysmal atrial fibrillation. Patient was on metoprolol and Eliquis however she self stopped in 05/2018. She is now on diltiazem. She had another ZIO patch 05/2018 secondary to recurrent dizziness with reported early signs of tachybradycardia syndrome. Currently patient reports is feeling okay and denies any current chest pain, shortness of breath, palpitations, nausea, vomiting. Patient feels that she got up and walked around she would feel dizzy however denies any dizziness at rest currently. Patient denies any history of syncope. Denies fever/chills, N/V/D/C, vision changes, orthopnea, cough, sore throat, choking, otalgia, rhinorrhea, abdominal pain, paresthesias, weakness, extremity weakness, extremity edema, rashes, urinary symptoms. History echo 11/2017 with EF 55%. In ER patient with heart rate 40s to 60s, sinus bradycardia. She was given 500ml NSS, atropine 0.5, magnesium 1 g. Pt has remained without CP, SOB, and denies dizziness at rest. Principal Diagnosis Dizzy spell secondary to slow heart rate/incidental finding of renal mass Discharge Data Allergies Allergy/AdvReac Type Severity Reaction Status Date / Time No Known Allergies Allergy Unverified 09/27/18 16:56 Consultations 09/27/18 18:09 ED Decision to Admit Stat 09/27/18 18:16 Consult Cardiology Stat 09/27/18 20:24 Consult Cardiology Routine Consult Case Management - Discharge Planning Routine Ordered Studies 09/27/18 16:37 CT abd pelvis IV con only Stat CT angio chest PE protocol Stat Hospital Course (1) Dizziness: (2) Symptomatic bradycardia: Pt with hx recurrent dizziness, palpitations with exertion. Reported early signs of tachybrady syndrome from ZIO patch on 05/[address] Garay. Pt presented with c/o intermittent dizziness and palpitations x several weeks with exertion that resolves with rest In ER patient with heart rate 40s to 60s, sinus bradycardia. Diltiazem kept on hold Heart rate remained stable overnight Patient's symptoms of palpitation, dizzy spell, dyspnea on exertion was resolved -Lyme screen negative -Appreciate input from cardiology Patient can be discharged home, avoid AV chelo blockade, avoid calcium channel evelin Cardizem discontinued Exercise stress test was inconclusive as patient could not participate secondary to significant fatigue bilateral knee arthritis, will need nuclear stress test She is scheduled to follow-up with Dr. Garay Outpatient nuclear stress test in 3-week (3) Chest pain: No further symptoms, ambulating in the hallway without any chest discomfort chest heaviness Serial troponin negative. EKG without acute ST changes. Cardiology consult appreciated Patient nuclear stress test in 3 weeks (4) Abdominal pain: No complaint of abdominal pain tolerating diet No N/V/D. CT ABD/PELVIS: No acute process in the abdomen or pelvis. (5) Paroxysmal atrial fibrillation: H/O PAF seen on ZIO patch 11/2017 . Patient was on metoprolol and Eliquis however she self stopped in 05/2018. She is now on diltiazem. Pt has continued to deny anticoagulation despite cardiology recommendations. CHADSVASC score: 3 -Diltiazem discontinued secondary to bradycardia And is being followed with rn hemodialysis charge Discussed with patient regarding anticoagulation, very reluctant to start on Eliquis as it gave her severe diarrhea Does not want extra medications "unless she absolutely have to" Discussed with patient briefly regarding risk of thromboembolic stroke, catastrophic effect with acute CVA Patient willing to have a laisha discussion with her family physician and cardiology And try different NOAC/anticoagulation with less side effect Patient is started on aspirin 81 mg daily, Consulting provider repeatedly to continue anti-platelet for future cardiac and stroke prevention benefit (6) Kidney lesion, chenega, right: CT ABD/PELVIS: Several stable hepatic cyst. Interval development of a 2 cm interpolar lesion right kidney. - No urologic symptoms, no hematuria Needs outpatient urology follow-up (7) HTN (hypertension): Blood pressure stable Diltiazem discontinued secondary to symptomatic bradycardia (8) Chronic leg pain: -Continue oxycodone (9) Hypothyroidism: TSH: 2.4 -Continue levothyroxine DVT Prophylaxis -Lovenox SQ Full Code as per discussion with pt Stable to be discharged home today Family physician follow-up with Dr. Reyes Cardiology follow-up with Dr. Shay Total Time Total Time Spent Total Time Spent (In Minutes): Approximately 40 minutes Total Time Includes: Examination of the Patient, Discharge Planning and Medication Reconciliation Discharge Plan Discharge Items Patient Disposition: Home - Self-Care Reason For Visit: DIZZINESS,BRADYCARDIA Discharge Diagnosis: Dizzy spell secondary to slow heart rate/incidental finding of renal mass Discharge Goals: Decrease discomfort and Therapeutic intervention Activity: Resume your previous activity Non-emergency contact: Primary Care Provider Call non-emergency contact if: you have any medication questions Follow-up/Referrals: Prem Leiva MD [Physician] - 10/03/18 1:00 pm Diet: Heart Healthy Addtl Provider Instructions: Medication changes: DO NOT TAKE DILTIAZEM Outpatient nuclear cardiac stress test in 3 weeks, [facility] cardiology clinic will call you with appointment Hospital follow-up: With Dr. Leiva on next 10/03/2018 at 1 PM (Dr. Reyes's schedule is full) Please discuss with Dr. Leiva and your cardiology regarding anticoagulation/blood thinner to prevent stroke: As you have episodes of irregular heartbeat INCIDENTAL FINDING OF 2 CM LESION ON THE RIGHT KIDNEY Interval development of a 2 cm interpolar lesion right kidney. Neoplasm must be considered with a multi phase enhanced CT evaluation of the kidneys recommended on a routine basis. Patient needs urology follow-up: Dedicated CT abdomen pelvis for kidney Prescriptions: New aspirin 81 mg tablet,delayed release (DR/EC) 81 mg PO DAILY Qty: 30 RF: 0 Continued multivitamin Tablet 1 tab PO DAILY RF: 0 acetaminophen [Tylenol Extra Strength] 500 mg Tablet 1,000 mg PO TID RF: 0 levothyroxine 100 mcg Tablet 100 mcg PO DAILY RF: 0 calcium carbonate-vitamin D3 1,000 mg(2,500 mg)-800 unit Tablet 1 tab PO QAM RF: 0 oxycodone 5 mg tablet 5 mg PO Q12 PRN (Reason: Pain) RF: 0 fluoxetine 40 mg capsule 40 mg PO DAILY RF: 0 Discontinued diltiazem HCl 120 mg tablet 120 mg PO QAM RF: 0 Stand-Alone Forms: [facility]/Other Patient Handouts: Aspirin Oral tablet, Dizziness Fainting Poss Causes, Dizziness Vertigo Manage Meds, Dizziness Vertigo Balance Safety, ED Bradycardia, ED Near Syncope Unkn Discharge Orders: Discharge Order (Routine); Ordered 09/28/18 Ordered By: Shaneka Lua Admission Data Admit Date/Time: 09/27/18 19:11 Attending Provider: Shaneka Lua Admit Provider: El Garcia Primary Care Provider: Blake Reyes Other Providers: David Jewell Satish K. Service: Telemetry Other Interventions: Discharge Summary Assessment (RN) Last Done: 09/28/18 16:09 DC Date/Time DO NOT enter until pt leaves facility: 09/28/18 16:40
[2018-10-02 17:15] LABS: Ehrlichia chaff IgG Ab <1:64 (<1:64); Ehrlichia chaff IgM Ab <1:20 (<1:20)
== END 2018-09-28 16:40 | disposition home or self-care (01) | DRG 310 ==
LOC: ED 15:46 → 2S 19:11

== ENCOUNTER 2018-11-07 07:17 | Observation (INO) ==
[2018-11-07] MEDS ORDERED: BUPIVACAINE 0.25% 30 ML VIAL ONE (07:37)
[2018-11-07] MEDS ORDERED: LIDOCAINE HCL 1% 20 ML VIAL ONE (07:37)
[2018-11-07] MEDS ORDERED: BACITRACIN INJ 50,000 UNIT VIAL ONE (07:37)
[2018-11-07] MEDS ORDERED: MIDAZOLAM HCL 5 MG/ML 1 ML VIAL ONE (07:57)
[2018-11-07] MEDS ORDERED: fentaNYL citrate 100 MCG/2 ML VIAL ONE ×2 (07:57→09:40)
[2018-11-07] MEDS ORDERED: CEFAZOLIN 250 MG/ML 1 GM VIAL ONE (07:57)
--- NOTE | 2018-11-07 08:02 | History & Physical Bridge Note ---
Date of Service November 07, 2018 History & Physical Bridge Note I have examined the patient, reviewed the History & Physical and in the interval since the performance of the History & Physical I have noted the following changes of clinical significance: no changes noted
--- NOTE | 2018-11-07 08:03 | Pre Anesthesia Assessment ---
Date of Service November 07, 2018 Pre Sedation Assessment Vital Signs Temp Pulse Resp Pulse Ox 11/07/18 07:38 37.0 C 57 L 20 97 Cardiovascular + bradycardic Respiratory normal respiratory effort, lungs clear to auscultation Pre-Sedation Airway Assessment Smoking Status: Never smoker Hx Sleep Apnea: No Short, Thick Neck: No Thyromental Distance: > or= 3.5 Finger Breadths Oral Cavity: + WNL Mallampati Class: I ASA: ASA3 NPO Status Date of Last Intake of Fluids: 11/06/18 Date of Last Intake of Solid Food: 11/06/18 Procedure Planning Contraindications for Sedation: none Current Medications Reviewed: Yes Notes The planned sedation has been discussed with the patient. Informed Consent was obtained. I have identified the patient, determined the appropriateness of sedation and have assessed the patient immediately prior to the procedure. All medicine(s) and interventions are by my order.
[2018-11-07 08:19] LABS: INR 1.8 (0.9-1.1); Prothrombin Time 17.3 Seconds (9.0-12.0)
[2018-11-07] MEDS ORDERED: MIDAZOLAM HCL 1 MG/ML 2ML VIAL ONE (10:07)
--- NOTE | 2018-11-07 10:28 | Post Anesthesia Assessment ---
Date of Service November 07, 2018 Post Sedation Assessment Vital Signs Temp Pulse Resp Pulse Ox 11/07/18 07:38 37.0 C 57 L 20 97 Recovery Score Activity: Moves 4 extremities Respiration: Deep Breath/Cough Circulation: +/-20% PreAnes Value Consciousness: Fully Awake Oxygen Saturation: > 92% On Room Air Discharge Sedation Level of Care: Fast Track Phase II Post Sedation Plan On clinical assessment, the patient appears to have tolerated the sedation without complications. Patient is recovering as anticipated. Patient will continue to be monitored by nursing and may be discharged when sedation discharge criteria are met per below protocol. Upon Completions of procedure and additional 15 minutes continue every 5 minute vital signs and the P.A.R. score; then discharge to a Phase I or Fast Track to Phase II per the following guidelines: * Discharge Patient to appropriate Phase II area if PAR is 8 or greater or return to pre- procedure baseline. The post - procedure orders will be as directed. * If PAR score is less than 8 or not return to pre-procedure baseline then patient will follow Phase I monitoring till PAR is reached for Phase II. The Phase I may be done in procedure room or may call to secure a Phase I area. * If naloxone or flumazenil are used for reversal, hold in Phase I for continued monitoring from when last reversal dose was given for a minimum of 60 minutes or longer pending the nurse and/or physician discretion of patient condition before discharge to Phase II. Please call the Sedation Physician to re-evaluate and complete post-note for discharge to Phase II area. Do NOT discharge from procedure sedation or Phase 1 until post- sedation evaluation note is complete by procedure /sedation MD Sedation Discharge Instructions to be given to the patient at discharge to home.
--- NOTE | 2018-11-07 10:29 | Operative Report ---
Post Operative Report Pre & Post Diagnosis Pre TBS Post: same Operation Date: 11/07/18 08:00 <No data on this case meets the specified criteria> Procedure Operation Date: 11/07/18 08:00 Actual Procedures p Pacer with A/V Leads (Dual) - Janet Garay DO s Venogram, Unilateral - Janet Garay DO Surgeon Janet Garay, Neurosurgery Physician none Estimated Blood Loss 30 Findings Consistent with Post-Op Diagnosis Specimens none Description of Procedure see official report I attest to the content of the Intraoperative Record and any orders documented therein. Any exceptions are noted below.
[2018-11-07] MEDS ORDERED: ACETAMINOPHEN 325 MG TAB PO PRN (10:30)
[2018-11-07] MEDS: OXYCODONE HCL IR 5 MG TAB (IMMEDIATE RELEASE) PO PRN ×2 (11:46→23:28)
[2018-11-07] MEDS: ACETAMINOPHEN 500 MG TAB PO SCH ×2 (14:01→21:11)
[2018-11-08] MEDS ORDERED: LEVOTHYROXINE SODIUM 100 MCG TABLET PO SCH (06:30)
[2018-11-08 07:24] LABS: INR 1.5 (0.9-1.1); Prothrombin Time 14.7 Seconds (9.0-12.0)
[2018-11-08] MEDS: ACETAMINOPHEN 500 MG TAB PO SCH ×2 (07:34→12:49)
--- NOTE | 2018-11-08 07:36 | XRay Report ---
XR chest 2V routine HISTORY: Status post pacemaker. post implant COMPARISON: Chest 01/31/2016. FINDINGS: There is a left-sided dual-chamber pacemaker. The leads appear intact. No pneumothorax. No pleural effusions. The heart remains mildly enlarged. Mild diffuse interstitial thickening, unchanged . No evidence for pulmonary edema. No new focal lung consolidations to suggest pneumonia. Suspect mil d emphysema. Bilateral total shoulder arthroplasties are again noted. IMPRESSION: Status post left-sided dual-chamber pacemaker. No pneumothorax. Electronically signed by: Kale García M.D. 11/08/2018 7:35 AM
[2018-11-08] MEDS ORDERED: INFLUENZA VIRUS QUAD VACCINE 0.5 ML SYR IM ONE (09:00)
[2018-11-08] MEDS ORDERED: ASPIRIN 81 MG ECTAB PO SCH (09:00)
[2018-11-08] MEDS ORDERED: MULTIVITAMIN TAB PO SCH (09:00)
[2018-11-08] MEDS ORDERED: INFLUENZA ADMINISTRATION CHARGE ONE (09:00)
[2018-11-08] MEDS ORDERED: AMLODIPINE BESYLATE 5 MG TAB PO SCH (09:00)
[2018-11-08] MEDS ORDERED: FLUOXETINE HCL 20 MG CAP PO SCH (09:00)
[2018-11-08] MEDS ORDERED: CALCIUM 600MG + VIT D 400 IU TAB PO SCH (09:00)
[2018-11-08] MEDS ORDERED: dilTIAZem HCL 120 MG CAPCR PO SCH (09:00)
[2018-11-08] MEDS ORDERED: WARFARIN SOD 5 MG TAB PO SCH (16:00)
--- NOTE | 2018-11-09 13:26 | Discharge Summary ---
Date of Service November 08, 2018 Admission HPI Per Admitting Provider pt admitted for elective ppm due to TBS. Admission Exam Per Admitting Provider aaox3, NAD NC/AT, EOMI Supple No JVD bradycardia S1/S2, No murmur CTA b/l no w/r/r soft nt/nd no LE edema b/l skin intact no focal deficits Principal Diagnosis TBS s/p dual chamber ppm Discharge Exam aaox3, NAD NC/AT, EOMI Supple No JVD Nrl S1/S2, No murmur CTA b/l no w/r/r soft nt/nd no LE edema b/l skin intact no focal deficits left pectoral incision intact, no hematoma mild ecchymosis Discharge Data Allergies Allergy/AdvReac Type Severity Reaction Status Date / Time No Known Allergies Allergy Unverified 09/27/18 16:56 Procedures Performed Operation Date: 11/07/18 08:00 Actual Procedures p Pacer with A/V Leads (Dual) - Janet Garay DO s Venogram, Unilateral - Janet Garay DO Ordered Studies CXR: No PTX, ppm leads in place ECG: AP-VS PPM Interrogation 11/08/2018:Normal function and stable lead testing since implant Echocardiogram: 11/08/2018:Small effusion around RA 11/09/2018: improvement in RA pericardial effusion now trace 11/07/18 06:37 CL Cath Imgs for PACS use only Routine Hospital Course (1) Tachy-fina syndrome: (2) Atrial fibrillation: Total Time Total Time Spent Total Time Spent (In Minutes): 30 Total Time Includes: Examination of the Patient, Discharge Planning, Medication Reconciliation and Other Discharge Plan Discharge Items Patient Disposition: Home - Self-Care Reason For Visit: DUAL CHAMBER PACER Discharge Diagnosis: tbs s/p dual chamber Condition on Discharge: Good Activity: As commented below Activity Comment: do not lift the left elbow over the left shoulder for 1 month Lifting: No more than 10 pounds Lifting Comment: do not lift more than 10 pounds with the left arm for 2 days Bathing: Keep incision dry Sexual Activity: After two weeks Non-emergency contact: Workers Compensation Attorney Call non-emergency contact if: you have any medication questions Follow-up/Referrals: Blake Reyes DO [Primary Care Provider] - Diet: Heart Healthy Addtl Attending Provider Instructions: keep the pressure dressing on for 2 days keep the underlying micropore white dressing on until wound check if possible Can shower thurs 11/09 just let water run over the incision do not scrub it Any concerns at the incision site call Dr. Garay's office immediately Wound check next week as scheduled Pending Studies at Discharge: No Stand-Alone Forms: My [facility] Medications and DC Order Prescriptions: New diltiazem HCl 120 mg Capsule,Extended Release 24hr 120 mg PO QAM Qty: 30 RF: 0 Continued multivitamin Tablet 1 tab PO DAILY RF: 0 acetaminophen [Tylenol Extra Strength] 500 mg Tablet 1,000 mg PO TID RF: 0 levothyroxine 100 mcg Tablet 100 mcg PO DAILY RF: 0 calcium carbonate-vitamin D3 1,000 mg(2,500 mg)-800 unit Tablet 1 tab PO QAM RF: 0 oxycodone 5 mg tablet 5 mg PO Q12 PRN (Reason: Pain) RF: 0 amlodipine 2.5 mg Tablet 2.5 mg PO DAILY RF: 0 warfarin [Coumadin] 5 mg Tablet 5 mg PO DAILY RF: 0 fluoxetine 40 mg capsule 40 mg PO DAILY RF: 0 aspirin 81 mg tablet,delayed release (DR/EC) 81 mg PO DAILY Qty: 30 RF: 0 Discharge Orders: Discharge Order (Routine); Ordered 11/08/18 Ordered By: Janet Garay Admission Data Admit Date/Time: 11/07/18 08:50 Attending Provider: Janet Garay Admit Provider: Janet Garay Primary Care Provider: Blake Reyes Other Interventions: Discharge Summary Assessment (RN) Last Done: 11/08/18 13:25 DC Date/Time DO NOT enter until pt leaves facility: 11/08/18 18:31
--- NOTE | 2018-11-14 14:02 | Operative Report ---
DATE OF OPERATION: 11/07/2018 PREOPERATIVE DIAGNOSIS: Tachybrady syndrome. POSTOPERATIVE DIAGNOSIS: Tachybrady syndrome. PROCEDURE: Dual chamber rate responsive permanent pacemaker under fluoroscopic guidance along with peripheral venogram. SURGEON: Janet Garay DO ACCOUNTS COLLECTOR: None. ANESTHESIA: Monitored conscious sedation administered under my supervision by Layla Carrillo. Start time 08:42, end time 10:27. A total of 6 mg of Versed, 175 mcg of fentanyl. INTRAVENOUS FLUIDS: 196 mL of saline. INTRAVENOUS CONTRAST: 10 mL. ANTIBIOTICS: Two grams of Ancef. BLOOD LOSS: 20 mL. URINE OUTPUT: Not applicable. SPECIMENS: None. FINDINGS: See below. DRAINS: None. INDICATIONS: This is a 73-year-old female with past medical history for tachybrady syndrome, paroxysmal atrial fibrillation in November of 2017, she was diagnosed and started with Toprol and Eliquis. She stopped the Eliquis on her own due to nasal congestion in May 2018. She was then on diltiazem instead of Toprol. However, this had to be stopped in September of 2018 secondary to sinus bradycardia and she is on Coumadin now for CHADS2-VASc score of 3, first degree AV block, hypertension, hypothyroidism, paroxysmal atrial tachycardia with aberrancy, narcolepsy. Due to her evidence of tachybrady syndrome, she was recommended a dual chamber pacemaker. CONSENT: Consent was obtained prior to the patient going into electrophysiology lab. The patient was informed of the risks, benefits and alternatives of the procedure. Risks include but not limited to sudden cardiac , cardiac arrhythmias, cerebrovascular accident, myocardial infarction, injury to the blood vessels, chamber of the heart, lung, bleeding, and infection. The patient understood these risks and agrees to the procedure as planned. Informed consent was obtained. DESCRIPTION OF THE PROCEDURE: The patient was brought into the electrophysiology lab in fasting state. She was connected to continuous playground monitor. A timeout was performed to ensure patient identity and procedure correctly. The patient was prepped and draped over the left infraclavicular space in normal surgical standard fashion. Monitored conscious sedation was given throughout the procedure for patient's comfort level. [place] precautions were maintained throughout the procedure. A 10 mL of 1% lidocaine, bupivacaine mixture were given in left deltopectoral groove. Incision was made in left deltopectoral groove. Blunt dissection was performed down to identify the cephalic vein; however, none could be identified, so a peripheral venogram using 10 mL of IV contrast diluted in 10 mL of saline was performed to identify the axillary vein. Venous axillary was obtained. A guidewire was inserted without any resistance. The 8-[place] sheath was inserted over the guidewire without any resistance. Dilator was removed and a second guidewire was inserted over the 8-[place] sheath to allow for retained venous access. Sheath was flushed, dilator reinserted over the guidewire. The guidewire and dilator removed. The right ventricular lead was then advanced into right ventricle. I tried to position in the right ventricular apex, but it kept getting stuck and hung up on some trabecula. We did have to reposition it a few times. I ultimately placed it up on the septum. There was adequate pacing and sensing thresholds and no diaphragmatic stimulation with high output pacing. The 8-[place] sheath was peeled away and lead was fixated to pectoralis muscle using 0 silk suture. The second 8-[place] sheath was inserted over the retained guidewire without any resistance. Guidewire and dilator removed. The right atrial lead was then advanced into right atrium and positioned interatrial appendage under fluoroscopic guidance. There was adequate pacing and sensing thresholds and no diaphragmatic stimulation with high output pacing. The 8-[place] sheath was peeled away and lead was fixated to pectoralis muscle using 0 silk suture. A pacemaker pocket was created using blunt dissection over the pectoralis muscle. The pocket was flushed with copious amounts of bacitracin saline wash and inspected for hemostasis. The pulse generator was attached to the leads, making sure that the pins were in appropriate position, passed set screw and set screws were all tightened. Pulse generator was then placed in the pocket, making sure that the leads were lying flat beneath the device. A stay stitch using 0 silk suture was used to secure the device to pectoralis muscle. Anoop stat was placed in the pocket as the patient is going back on Coumadin and her INR last week was somehow supratherapeutic. Then the incision was closed in 3-layer fashion with 2-0 Vicryl interrupted suture followed by 3-0 Vicryl interrupted suture followed by 4-0 Monocryl running stitch and Dermabond was applied followed then by a Tevin and the micropore over a pressure dressing followed then by a pressure dressing. EQUIPMENT: 1. Pulse generator is a Medtronic Maria C XT EDGAR Zamudio [id number], serial #[id number]. 2. Right atrial lead Medtronic 5076-52 cm, serial #[id number]. 3. Right ventricular lead, Medtronic 5076-58 cm, serial #[id number]. INTRAOPERATIVE TESTIN. Right atrial lead: P waves 5.4 millivolts, impedance 904 ohms, threshold 0.4 volts at 0.4 milliseconds. 2. Right ventricular lead: R waves 12.5 millivolts, impedance 1085 ohms, threshold 2.3 volts at 0.4 milliseconds. FINAL PARAMETERS: MVP-R 60/130, right atrial amplitude 3.5 volts, pulse width 0.4 milliseconds, sensitivity 0.3 millivolts. Right ventricular amplitude 5 volts, pulse width 0.4 milliseconds, sensitivity 1.2 millivolts. IMPRESSION: Successful implantation of a dual chamber rate responsive permanent pacemaker under fluoroscopic guidance along with peripheral venogram secondary to tachybrady syndrome. PLAN: Monitor patient overnight, 12-lead ECG, chest x-ray. She is not allowed to lift left elbow or left shoulder for 1 month. She cannot lift more than 10 pounds with the left arm for 2 weeks. She should leave the pressure dressing on for 2 days and shower in 2 days, but leave the micropore tape on as for as long as she can until her wound check ideally. We will restart her back on her diltiazem and she can continue her Coumadin and other home medicines. I attest to the content of the Intraoperative Record and any orders documented therein. Any exception s are noted below.
== END 2018-11-08 18:31 | disposition home or self-care (01) ==
LOC: 1E 07:17 → EP 07:17 → 2S 14:17

== ENCOUNTER 2019-04-27 21:33 | Inpatient (IN) ==
[2019-04-27] MEDS ORDERED: NITROGLYCERIN SL 0.4 MG/TAB TAB SL PRN (21:50)
[2019-04-27] MEDS ORDERED: ASPIRIN CHEW 324 MG PO STA (21:50)
--- NOTE | 2019-04-27 21:50 | Emergency Department Note ---
ED Provider Note NAME: KAREN JARRELL AGE: 74 SEX: F : 1945 ARRIVES VIA: Walk-In INFORMANT: Patient, ED PROVIDER(S): Rylan Moreno DO CHIEF COMPLAINT: Chest pain, shortness of breath and heart racing HPI: Patient is a 74-year-old female with past medical history of A. fib, tachybradycardia syndrome, hypertension presents to the ER for chest heaviness associated with shortness of breath and feeling as though her heart is racing. She notes symptoms started around 9 PM. She felt her heart beating irregularly. She had a midsternal chest heaviness. Chest heaviness has no associated exacerbating or remitting factors. Currently still present. She did have some shortness of breath. No previous history of any MIs. No abdominal pain, nausea vomiting or diarrhea. No other exacerbating or remitting factors. ROS: See above HPI for pertinent positives & negatives. A total of 10 systems reviewed and were otherwise negative. PAST MEDICAL HISTORY:See Below PAST SURGICAL HISTORY:See Below FAMILY HISTORY:See Below SOCIAL HISTORY:See Below HOME MEDICATIONS:See Below ALLERGIES:See Below VITALS:See Below PHYSICAL EXAMINATION: GENERAL: Sitting up in bed, alert, well appearing, well nourished, no distress, non-toxic EYE EXAM: normal conjunctiva. OROPHARYNX: no exudate, no erythema, lips, buccal mucosa, and tongue normal and mucous membranes are moist NECK: supple, no nuchal rigidity, no adenopathy, non-tender LUNGS: Clear to auscultation. Normal chest wall mechanics HEART: no murmurs, S1 normal and S2 normal ABDOMEN: abdomen soft, non-tender, normo-active bowel sounds, no masses, no rebound or guarding. BACK: Back is symmetrical on inspection and there is no deformity, no midline tenderness, no CVA tenderness. SKIN: no rashes and no bruising UPPER EXTREMITIES: upper extremities are grossly normal. LOWER EXTREMITIES: No pitting edema. Calves are equal bilateral NEURO EXAM: Normal sensorium, cranial nerves II-XII intact, normal speech, no weakness of arms, no weakness of legs. No drift. Finger to nose intact. Gross sensation intact. MEDICAL DECISION MAKING: Patient is a 74-year-old female with past medical history of paroxysmal A. fib, tachybradycardia syndrome, hypertension who presents the ER for chest pain, shortness of breath and feeling her heart race. IV was established blood work was obtained showed no significant leukocytosis or anemia. INR was therapeutic at 3. BMP with LFTs bilirubin and troponin was unremarkable. Lipase was normal. EKG was nondiagnostic. Patient was given aspirin and nitro. She dropped her pressure into the 70s. She was given IV fluids. She was updated bedside. Discussed with the hospitalist for observation secondary to chest pain palpitations and shortness of breath. Upon review of the [employer] interrogation it appears as though she did have an atrial tachycardia today as well. Triage Nursing notes reviewed. Prior medical records reviewed Vital Signs: reviewed and remarkable for no significant abnormalities Differential diagnosis: Differential diagnoses includes but is not limited to acute coronary syndrome, myocardial infarction, pericarditis, pulmonary embolus, aortic dissection, pneumonia, pneumothorax, musculoskeletal, shingles, esophageal. ER treatment provided: See below Diagnostics interpreted by me: ECG: Atrial flutter with a variable block and intermittent paced rhythm rate of 95 Left axis Intermittent paced Inferior Q waves Cardiac Monitoring: A. fib rate of 92 Laboratory studies: As stated above and show below. Imaging studies: See below Consultation(s): Dr. Jc ED COURSE: Procedures: none Critical Care: None Impression & Plan Chest pain, Breath shortness, Tachy-fina syndrome, Atrial fibrillation Past Med/Surg History Social History Preferred Language: Citizen Of [place] Communication Ability: Effective Beliefs That Will Affect Care: None marital status: Current Living Situation: Spouse Feels Safe at Home: Yes Smoking Status: Never smoker Hx Alcohol Use: No Hx Substance Use: No Results & Data Vital Signs Vital Signs - 24 hr 04/27/19 21:35 04/27/19 22:23 Temperature 36.4 C L Temperature Source Oral Pulse Rate 112 H Pulse Rate [Right Finger] 63 Respiratory Rate 20 16 Respiratory Effort / Characteristics Non-Labored Spontaneous Respiratory Depth Normal Respiratory Pattern Regular Blood Pressure 114/78 Blood Pressure [Right Arm] 122/75 Blood Pressure Mean 90 Blood Pressure Mean [Right Arm] 90 Blood Pressure Position Sitting Blood Pressure Position [Right Arm] Lying Pulse Oximetry 97 98 Oxygen Delivery Method Room Air Room Air Sepsis Recent Fever Within 48 Hours No Sepsis New/Unexplained Change in Mental Status No Sepsis Action Taken by Nursing No Action Required Laboratory Data Result diagrams: 04/27/19 20:20 04/27/19 20:20 Lab Results 04/27/19 04/27/19 04/27/19 Range/Units 20:20 20:20 20:20 WBC 6.20 (4.8-10.8) K/uL RBC 4.74 (4.2-5.4) M/uL Hgb 13.9 (12.0-16.0) g/dL Hct 43.7 (37-47) % MCV 92.2 (80-100) fL MCH 29.3 (25-34) pg MCHC 31.8 L (32-36) g/dL RDW Std Deviation 62.7 H (36.4-46.3) fL RDW Coeff of Dipesh 18.4 H (11.5-14.5) % Plt Count 253 (130-400) K/uL MPV 10.1 (7.4-10.4) fL Immature Gran % (Auto) 0.3 % Neut % (Auto) 57.1 % Lymph % (Auto) 26.6 % Angelina % (Auto) 14.0 % Eos % (Auto) 1.5 % Baso % (Auto) 0.5 % Immature Gran # (Auto) 0.02 (0.00-0.02) K/uL Neut # (Auto) 3.54 (1.4-6.5) K/uL Lymph # (Auto) 1.65 (1.2-3.4) K/uL Angelina # (Auto) 0.87 H (0.11-0.59) K/uL Eos # (Auto) 0.09 (0-0.5) K/uL Baso # (Auto) 0.03 (0-0.2) K/uL PT 29.6 H (9.0-12.0) Seconds INR 3.0 H (0.9-1.1) APTT 43.9 H (21.0-31.0) Seconds PTT Ratio 1.6 Sodium 140 (136-145) mmol/L Potassium 3.9 (3.5-5.1) mmol/L Chloride 106 (98-107) mmol/L Carbon Dioxide 27 (21-32) mmol/L Anion Gap 7.0 (3-11) BUN 12 (7-18) mg/dl Creatinine 0.79 (0.6-1.2) mg/dl Est Cr Clr Drug Dosing 59.6 ml/min Est GFR ( Amer) 84.3 Est GFR (Non-Af Amer) 72.7 BUN/Creatinine Ratio 15.7 (10-20) Glucose 94 (70-99) mg/dl Calcium 9.0 (8.5-10.1) mg/dl Total Bilirubin 0.3 (0.2-1) mg/dl AST 27 (15-37) U/L ALT 48 (12-78) U/L Alkaline Phosphatase 152 H (45-117) U/L Troponin I < 0.015 (0-0.045) ng/ml Total Protein 8.0 (6.4-8.2) gm/dl Albumin 3.5 (3.4-5.0) gm/dl Globulin 4.5 H (2.5-4.0) gm/dl Albumin/Globulin Ratio 0.8 L (0.9-2) Lipase 123 (73-393) U/L Administered Medications Nitroglycerin (Nitrostat) 0.4 mg SL UD PRN PRN Reason: Chest Pain Stop: 05/27/19 21:49 Last Admin: 04/27/19 21:56 Dose: 0.4 mg Documented by: [id number] Discontinued Medications Aspirin (Aspirin) 324 mg PO NOW STA Stop: 04/27/19 21:51 Last Admin: 04/27/19 22:06 Dose: 324 mg Documented by: [id number] Sodium Chloride (Nss 1000ml) 1,000 mls @ 999 mls/hr IV .Q1H1M MILDRED Stop: 04/27/19 23:00 Last Admin: 04/27/19 21:58 Dose: 999 mls/hr Documented by: [id number] Discharge Plan Visit Data Chief Complaint: Tachycardia Stated Complaint: TACHYCARDIA ED Provider: Rylan Moreno Discharge Problem: Chest pain, Breath shortness, Tachy-fina syndrome, Atrial fibrillation Forms Stand Alone Forms: My [employer] Prescriptions Prescriptions: No Action multivitamin Tablet 1 tab PO DAILY RF: 0 acetaminophen [Tylenol Extra Strength] 500 mg Tablet 1,000 mg PO TID PRN (Reason: Pain) RF: 0 levothyroxine 100 mcg Tablet 100 mcg PO DAILY RF: 0 calcium carbonate-vitamin D3 1,000 mg(2,500 mg)-800 unit Tablet 1 tab PO QAM RF: 0 oxycodone 5 mg tablet 5 mg PO Q12 PRN (Reason: Pain) RF: 0 warfarin [Coumadin] 5 mg Tablet 2.5 mg PO 6XWK RF: 0 diltiazem HCl 120 mg Capsule,Extended Release 24hr 120 mg PO QAM Qty: 30 RF: 0 fluoxetine 40 mg capsule 40 mg PO DAILY RF: 0 ferrous sulfate 325 mg (65 mg iron) Tablet 325 mg PO DAILY RF: 0 warfarin 5 mg tablet 5 mg PO .QFRIDAY RF: 0 Complete 14 mg iron- 400 mcg Tablet 1 tab PO DAILY RF: 0 Discharge Problem: Chest pain Qualifiers: Chest pain type: unspecified Qualified Code(s): R07.9 - Chest pain, unspecified Atrial fibrillation Qualifiers: Atrial fibrillation type: unspecified Qualified Code(s): I48.91 - Unspecified atrial fibrillation
[2019-04-27 21:59] LABS: Basophils # (auto) 0.03 K/uL (0-0.2); Basophils % (auto) 0.5 %; Eosinophils # (auto) 0.09 K/uL (0-0.5); Eosinophils % (auto) 1.5 %; Hematocrit (blood only) 43.7 % (37-47); Hemoglobin 13.9 g/dL (12.0-16.0); Immature Granulocytes # (auto) 0.02 K/uL (0.00-0.02); Immature Granulocytes % (auto) 0.3 %; Lymphocytes # (auto) 1.65 K/uL (1.2-3.4); Lymphocytes % (auto) 26.6 %; Mean Corpuscular Hemoglobin 29.3 pg (25-34); Mean Corpuscular Hgb Conc 31.8 g/dL (32-36); Mean Corpuscular Volume 92.2 fL (80-100); Mean Platelet Volume 10.1 fL (7.4-10.4); Monocytes # (auto) 0.87 K/uL (0.11-0.59); Neutrophils # (auto) 3.54 K/uL (1.4-6.5); Neutrophils % (auto) 57.1 %; Platelet Count 253 K/uL (130-400); RDW Coefficient of Variation 18.4 % (11.5-14.5); RDW Standard Deviation 62.7 fL (36.4-46.3); Red Blood Count 4.74 M/uL (4.2-5.4)
[2019-04-27] MEDS ORDERED: SODIUM CHLORIDE 0.9% 1000ML 1,000 ML IV SCH (22:00)
--- NOTE | 2019-04-27 22:04 | XRay Report ---
XR chest 1V portable HISTORY: 74 years-old Female Chest Pain acute atypical chest pain COMPARISON: CTA of the chest and chest radiograph 11/24/2018. TECHNIQUE: Portable AP view of the chest FINDINGS: There is decreased size of the cardiac silhouette from comparison suggestive of decreased size versus resolution of the previously noted large pericardial effusion. Unchanged left subclavian pacer. No p neumothorax, large pleural effusion or overt pulmonary edema. Minimal linear left lung base densities suggest atelectasis/scarring. Degenerative changes of the spine. Bilateral shoulder arthroplasties. IMPRESSION: No acute process. ACT 112: Negative or not required by law. The above report was generated using voice recognition software. It may contain grammatical, syntax o r spelling errors. Electronically signed by: Ozzie Welch M.D. 04/27/2019 10:03 PM
[2019-04-27 22:11] LABS: Partial Thromboplastin Ratio 1.6; Partial Thromboplastin Time 43.9 Seconds (21.0-31.0); Prothrombin Time 29.6 Seconds (9.0-12.0)
[2019-04-27 22:15] LABS: Alanine Aminotransferase 48 U/L (12-78); Albumin Level 3.5 gm/dl (3.4-5.0); Aspartate Aminotransferase 27 U/L (15-37); BUN Creatinine Ratio 15.7 (10-20); Blood Urea Nitrogen 12 mg/dl (7-18); Carbon Dioxide 27 mmol/L (21-32); Chloride 106 mmol/L (98-107); Creatinine Clr Calc Pharmacy 59.6 ml/min; Est GFR (African American) 84.3; Est GFR (Non-African American) 72.7; Glucose 94 mg/dl (70-99); Lipase 123 U/L (73-393); Potassium 3.9 mmol/L (3.5-5.1); Sodium 140 mmol/L (136-145)
[2019-04-27 22:20] LABS: Albumin Globulin Ratio 0.8 (0.9-2); Alkaline Phosphatase 152 U/L (45-117); Bilirubin,Total 0.3 mg/dl (0.2-1); Globulin 4.5 gm/dl (2.5-4.0); Troponin I < 0.015 ng/ml (0-0.045)
[2019-04-27] MEDS ORDERED: POTASSIUM CHLORIDE 20 MEQ TABCR PO STA (23:10)
[2019-04-27 23:51] LABS: Magnesium 2.1 mg/dl (1.8-2.4)
--- NOTE | 2019-04-28 00:06 | History & Physical Report ---
Date of Service April 28, 2019 Assessment & Plan (1) Chest pain: Secondary to tachycardia Rule out ACS given response to nitroglycerin hx SSS sp PPM on Coumadin, patient NSR, INR therapeutic hx cardiac tamponade status post drainage hypertension, stable hx narcolepsy as per records, hypothyroidism, euthyroid as of today's TSH Diarrhea rule out C. difficile OBS PCU Aspirin for CAD prevention until ACS ruled out Follow troponin TTE, Cardiology consult RE chest pain Stool C. difficile DVT prophylaxis. Coumadin INR goal between 2 and 3 if no plans for procedure Full code Text document was generated using [employer] recognition software. It may contain grammatical or spelling errors. Kindly contact undersigned for clarification of any documentation item in question. History of Present Illness Patient thought it might have been a small heart attack. Chief Complaint: Palpitations, chest discomfort Primary Care Provider: Blake Reyes DO History obtained from patient and records. Medical history significant for SSS sp PPM on Coumadin, hypertension, hyperlipidemia, hx narcolepsy as per records, hypothyroidism, mood disorder, recurrent hip dislocations. Recent ER visit last November 2017 for pericardial tamponade. Patient transferred to [facility] where she underwent pericardiocentesis and lead repositioning. Last week patient was from sleep with squeezing chest discomfort lasting longer than an hour then spontaneously resolving. Patient worried about a small heart attack. Advice to go to the ER by PCPs office but patient unable to comply. Patient was watching television and doing something in her closet few hours ago when she noted palpitations causing chest heaviness and some shortness of breath. Symptoms somewhat different from last week's attack. No unusual stress at home. No abdominal pain. Loose stools, not bloody. No emesis. No recent travel/antibiotic Rx. Patient noted to be tachycardic upon arrival at the ER. Symptoms resolved after aspirin and nitroglycerin administration. MEDICAL HISTORY: SURGERIES Hysterectomy. Cholecystectomy. Breast reduction. Appendectomy. hip surgery, knee surgery, cataract surgery, right colectomy, PPM, blepharoplasty, shoulder surgery, lipectomy FAMILY HISTORY: Colon cancer, uterine ovarian cancer, breast cancer as per records, dementia, Parkinson's disease. PSHX : Non-smoker, daily ETOH intake, retired from office work Allergies Allergy/AdvReac Type Severity Reaction Status Date / Time No Known Allergies Allergy Unverified 04/27/19 22:36 Home Medications Home Medications Medication Instructions Recorded Confirmed Type acetaminophen [Tylenol Extra 1,000 mg PO TID PRN 12/13/17 04/27/19 History Strength] calcium carbonate-vitamin D3 1 tab PO QAM 12/13/17 04/27/19 History levothyroxine 100 mcg PO DAILY 12/13/17 04/27/19 History multivitamin 1 tab PO DAILY 12/13/17 04/27/19 History oxycodone 5 mg PO Q12 PRN 12/13/17 04/27/19 History fluoxetine 40 mg PO DAILY 09/27/18 04/27/19 History warfarin [Coumadin] 2.5 mg PO 6XWK 11/07/18 04/27/19 History diltiazem HCl 120 mg PO QAM #30 cap 11/08/18 04/27/19 Rx ferrous sulfate 325 mg PO DAILY 04/27/19 04/27/19 History 21-iron fu-folic acid 1 tab PO DAILY 04/27/19 04/27/19 History [ Complete] warfarin 5 mg PO .QFRIDAY 04/27/19 04/27/19 History Past Med/Surg History Social History Preferred Language: [place] Communication Ability: Effective Beliefs That Will Affect Care: None marital status: Current Living Situation: Spouse Feels Safe at Home: Yes Safety Concerns: Feels Safe At This Time Smoking Status: Never smoker Hx Alcohol Use: Yes Alcohol type: wine Hx Substance Use: No Review of Systems Review of Systems: As per HPI, all 10 systems reviewed, all other ROS negative Physical Exam Physical Exam: GENERAL: Comfortable, slightly anxious, obese, no respiratory distress SKIN: Normal color, warm HEENT: [place] palpebral conjunctivae, no ptosis, dry buccal mucosa NECK : Supple, short neck, no tenderness CHEST : Decreased breath sounds, no tenderness HEART : RRR, no obvious murmurs ABDOMEN: Some distention, nontender EXTREMITIES : Minimal LE swelling, no LE tenderness, no other conspicuous deformities noted NEUROLOGIC : Coherent, no facial asymmetry, no other gross focality Results & Data Vital Signs (Past 12 Hours) Vital Signs Temp Pulse Pulse Resp BP BP Pulse Ox 04/27/19 22:23 63 16 122/75 98 04/27/19 21:35 36.4 C L 112 H 20 114/78 97 Laboratory Results Laboratory Results WBC 6.20 K/uL (4.8-10.8) 04/27/19 20:20 RBC 4.74 M/uL (4.2-5.4) 04/27/19 20:20 Hgb 13.9 g/dL (12.0-16.0) 04/27/19 20:20 Hct 43.7 % (37-47) 04/27/19 20:20 MCV 92.2 fL (80-100) 04/27/19 20:20 MCH 29.3 pg (25-34) 04/27/19 20:20 MCHC 31.8 g/dL (32-36) L 04/27/19 20:20 RDW Std Deviation 62.7 fL (36.4-46.3) H 04/27/19 20:20 RDW Coeff of Dipesh 18.4 % (11.5-14.5) H 04/27/19 20:20 Plt Count 253 K/uL (130-400) 04/27/19 20:20 MPV 10.1 fL (7.4-10.4) 04/27/19 20:20 Immature Gran % (Auto) 0.3 % 04/27/19 20:20 Neut % (Auto) 57.1 % 04/27/19 20:20 Lymph % (Auto) 26.6 % 04/27/19 20:20 [place] % (Auto) 14.0 % 04/27/19 20:20 Eos % (Auto) 1.5 % 04/27/19 20:20 Baso % (Auto) 0.5 % 04/27/19 20:20 Immature Gran # (Auto) 0.02 K/uL (0.00-0.02) 04/27/19 20:20 Neut # (Auto) 3.54 K/uL (1.4-6.5) 04/27/19 20:20 Lymph # (Auto) 1.65 K/uL (1.2-3.4) 04/27/19 20:20 [place] # (Auto) 0.87 K/uL (0.11-0.59) H 04/27/19 20:20 Eos # (Auto) 0.09 K/uL (0-0.5) 04/27/19 20:20 Baso # (Auto) 0.03 K/uL (0-0.2) 04/27/19 20:20 PT 29.6 Seconds (9.0-12.0) H 04/27/19 20:20 INR 3.0 (0.9-1.1) H 04/27/19 20:20 APTT 43.9 Seconds (21.0-31.0) H 04/27/19 20:20 PTT Ratio 1.6 04/27/19 20:20 Sodium 140 mmol/L (136-145) 04/27/19 20:20 Potassium 3.9 mmol/L (3.5-5.1) 04/27/19 20:20 Chloride 106 mmol/L (98-107) 04/27/19 20:20 Carbon Dioxide 27 mmol/L (21-32) 04/27/19 20:20 Anion Gap 7.0 (3-11) 04/27/19 20:20 BUN 12 mg/dl (7-18) 04/27/19 20:20 Creatinine 0.79 mg/dl (0.6-1.2) 04/27/19 20:20 Est Cr Clr Drug Dosing 59.6 ml/min 04/27/19 20:20 Est GFR ( Amer) 84.3 04/27/19 20:20 Est GFR (Non-Af Amer) 72.7 04/27/19 20:20 BUN/Creatinine Ratio 15.7 (10-20) 04/27/19 20:20 Glucose 94 mg/dl (70-99) 04/27/19 20:20 Calcium 9.0 mg/dl (8.5-10.1) 04/27/19 20:20 Magnesium 2.1 mg/dl (1.8-2.4) 04/27/19 20:20 Total Bilirubin 0.3 mg/dl (0.2-1) 04/27/19 20:20 AST 27 U/L (15-37) 04/27/19 20:20 ALT 48 U/L (12-78) 04/27/19 20:20 Alkaline Phosphatase 152 U/L (45-117) H 04/27/19 20:20 Troponin I < 0.015 ng/ml (0-0.045) 04/27/19 20:20 Total Protein 8.0 gm/dl (6.4-8.2) 04/27/19 20:20 Albumin 3.5 gm/dl (3.4-5.0) 04/27/19 20:20 Globulin 4.5 gm/dl (2.5-4.0) H 04/27/19 20:20 Albumin/Globulin Ratio 0.8 (0.9-2) L 04/27/19 20:20 Lipase 123 U/L (73-393) 04/27/19 20:20 TSH 2.120 uIu/ml (0.300-4.500) 04/27/19 20:20 Diagnostic Findings Chest x-ray: There is decreased size of the cardiac silhouette from comparison suggestive of decreased size versus resolution of the previously noted large pericardial effusion. Unchanged left subclavian pacer. No pneumothorax, large pleural effusion or overt pulmonary edema. Minimal linear left lung base densities suggest atelectasis/scarring. Degenerative changes of the spine. Bilateral shoulder arthroplasties. EKG as per my interpretation: Rate 80, NSR, diffuse T wave flattening, low voltage (1) Chest pain Chest pain type: unspecified Qualified Code(s): R07.9 - Chest pain, unspecified
[2019-04-28] MEDS ORDERED: PROMETHAZINE HCL 12.5 MG in SODIUM CHLORIDE 0.9% 50 ML IV PRN (01:29)
[2019-04-28] MEDS ORDERED: LORazepam 0.25 MG/0.5 ML VIAL IV PRN (01:29)
[2019-04-28] MEDS ORDERED: MoRPHine SULFATE 4 MG/ML 1 ML CARP\\VIAL IV PRN (01:29)
[2019-04-28] MEDS ORDERED: NITROGLYCERIN SL 0.4 MG/TAB TAB SL PRN (01:29)
[2019-04-28] MEDS ORDERED: LACTATED RINGER'S 1,000 ML IV ONE (01:29)
[2019-04-28] MEDS: OXYCODONE HCL IR 5 MG TAB (IMMEDIATE RELEASE) PO PRN ×2 (01:45→20:14)
[2019-04-28 04:04] LABS: Basophils # (auto) 0.02 K/uL (0-0.2); Basophils % (auto) 0.4 %; Eosinophils # (auto) 0.12 K/uL (0-0.5); Eosinophils % (auto) 2.2 %; Hematocrit (blood only) 37.5 % (37-47); Hemoglobin 11.8 g/dL (12.0-16.0); Immature Granulocytes # (auto) 0.02 K/uL (0.00-0.02); Immature Granulocytes % (auto) 0.4 %; Lymphocytes # (auto) 1.59 K/uL (1.2-3.4); Lymphocytes % (auto) 28.9 %; Mean Corpuscular Hemoglobin 29.1 pg (25-34); Mean Corpuscular Hgb Conc 31.5 g/dL (32-36); Mean Corpuscular Volume 92.4 fL (80-100); Mean Platelet Volume 9.4 fL (7.4-10.4); Monocytes # (auto) 0.79 K/uL (0.11-0.59); Monocytes % (auto) 14.3 %; Neutrophils # (auto) 2.97 K/uL (1.4-6.5); Neutrophils % (auto) 53.8 %; Platelet Count 213 K/uL (130-400); RDW Coefficient of Variation 18.5 % (11.5-14.5); RDW Standard Deviation 62.9 fL (36.4-46.3); Red Blood Count 4.06 M/uL (4.2-5.4); White Blood Count 5.51 K/uL (4.8-10.8)
[2019-04-28 04:13] LABS: INR 3.2 (0.9-1.1); Prothrombin Time 31.7 Seconds (9.0-12.0)
[2019-04-28 04:30] LABS: Anion Gap 0 (3-11); BUN Creatinine Ratio 19.9 (10-20); Blood Urea Nitrogen 16 mg/dl (7-18); Calcium 8.2 mg/dl (8.5-10.1); Carbon Dioxide 31 mmol/L (21-32); Chloride 110 mmol/L (98-107); Chol HDL Ratio 3; Cholesterol 184 mg/dl (0-200); Creatinine Clr Calc Pharmacy 58.1 ml/min; Est GFR (African American) 81.8; Est GFR (Non-African American) 70.5; Glucose 154 mg/dl (70-99); HDL Cholesterol 61 mg/dl; LDL Cholesterol Calculated 101 mg/dl; Potassium 4.9 mmol/L (3.5-5.1); Sodium 141 mmol/L (136-145); Triglycerides 110 mg/dl (0-150); Troponin I < 0.015 ng/ml (0-0.045); VLDL Cholesterol 22 mg/dl
[2019-04-28] MEDS ORDERED: SODIUM CHLORIDE 0.45 % 1,000 ML IV ONE (05:14)
[2019-04-28] MEDS: LEVOTHYROXINE SODIUM 100 MCG TABLET PO SCH (06:30)
[2019-04-28] MEDS: FERROUS SULFATE 325 MG TAB PO SCH (08:10)
[2019-04-28] MEDS: PRENATAL VITAMIN 1 TAB PO SCH (08:10)
[2019-04-28] MEDS: FLUOXETINE HCL 20 MG CAP PO SCH (08:10)
[2019-04-28] MEDS: MULTIVITAMIN TAB PO SCH (08:10)
[2019-04-28] MEDS: dilTIAZem HCL 120 MG CAPCR PO SCH (08:10)
[2019-04-28] MEDS ORDERED: ASPIRIN 81 MG ECTAB PO SCH (09:00)
--- NOTE | 2019-04-28 10:44 | Electrocardiogram Report ---
Test Reason : Blood Pressure : / mmHG Vent. Rate : 095 BPM Atrial Rate : 095 BPM P-R Int : 138 ms QRS Dur : 094 ms QT Int : 298 ms P-R-T Axes : 090 -29 201 degrees QTc Int : 374 ms Atrial flutter with occasional ventricular pacing Abnormal ECG When compared with ECG of 24-NOV-2018 18:18, Atrial flutter has replaced Sinus rhythm Confirmed by James Whaley ([id number]) on 04/28/2019 10:43:58 AM Referred By: REFERRED SELF Confirmed By:Roger Whaley
--- NOTE | 2019-04-28 11:52 | Cardiology Consultation ---
Date of Consultation April 28, 2019 Assessment & Plan (1) Atrial flutter, paroxysmal: (2) Chest pain: (3) Tachy-fina syndrome: (4) HTN (hypertension): Patient presents to hospital with chest discomfort related to paroxysmal atrial flutter. Symptoms more frequent over the past few weeks. Further treatment options discussed including addition of beta-evelin versus antiarrhythmic therapy. Patient intolerant to metoprolol in the past. She is agreeable to sotalol 80 mg twice daily. Recommend at least 5 doses during inpatient observation prior to discharge. Daily ECG ordered. Continue diltiazem for time being. Coumadin for anticoagulation. Discontinue aspirin. History of Present Illness Reason for Consultation: CP, PAF, tach-fina syndrome s/p PPM Requesting Physician: Dr. Lua Attending Physician: Shaneka Lua MD History of Present Illness 74-year-old female with history of tachybradycardia syndrome status post dual- chamber pacemaker placement 11/07/2018 complicated by pericardial tamponade requiring drain placement and lead repositioning 12/02/2018. Carries a history of paroxysmal atrial fibrillation previously treated with Toprol-XL and Eliquis. She stopped Toprol and Eliquis in the past due to possible diarrhea. Subsequently prescribed diltiazem and Coumadin. INR therapeutic since February 07, 2018. Patient presents to the emergency department with chest pain and recurrent palpitations/tachycardia on a daily basis. Approximately 3 nights ago she feels she suffered a mini heart attack. In general she feels dizzy with mild discomfort during episodes of atrial fibrillation. Her symptoms have become more frequent over the past 3 to 4 weeks. Denies overt syncope. No signs/symptoms of GI/ blood loss. Nuclear stress test performed 10/17/2018- for inducible ischemia. Currently, patient resting comfortably. Approximately 3 hours of atrial fibrillation/flutter recorded while in ER. She is currently atrial paced on telemetry. Bedside 2D transthoracic echocardiogram reveals normal wall motion without pericardial effusion. Her cardiac enzymes are undetectable. Tolerated her a.m. meal. Offers no other concerns/complaints at this time. Allergies Allergy/AdvReac Type Severity Reaction Status Date / Time No Known Allergies Allergy Unverified 04/27/19 22:36 Home Medications Home Medications Medication Instructions Recorded Confirmed Type acetaminophen [Tylenol Extra 1,000 mg PO TID PRN 12/13/17 04/27/19 History Strength] calcium carbonate-vitamin D3 1 tab PO QAM 12/13/17 04/27/19 History levothyroxine 100 mcg PO DAILY 12/13/17 04/27/19 History multivitamin 1 tab PO DAILY 12/13/17 04/27/19 History oxycodone 5 mg PO Q12 PRN 12/13/17 04/27/19 History fluoxetine 40 mg PO DAILY 09/27/18 04/27/19 History warfarin [Coumadin] 2.5 mg PO 6XWK 11/07/18 04/27/19 History diltiazem HCl 120 mg PO QAM #30 cap 11/08/18 04/27/19 Rx ferrous sulfate 325 mg PO DAILY 04/27/19 04/27/19 History 21-iron fu-folic acid 1 tab PO DAILY 04/27/19 04/27/19 History [ Complete] warfarin 5 mg PO .QFRIDAY 04/27/19 04/27/19 History Patient History Medical History Arrhythmia Hip dislocation, right (Resolved) HTN (hypertension) (Chronic) Continue norvasc Hypersomnolence (Chronic) Hypothyroidism (Chronic) Left knee DJD (Chronic) Paroxysmal atrial fibrillation (Chronic) Traumatic hematoma of buttock (Inactive) Surgical History History of left knee replacement History of total hip replacement (Chronic) Family History Grandfather (Maternal) Breast cancer Mother Colorectal cancer Sister Ovarian cancer Social History Preferred Language: German Communication Ability: Effective Beliefs That Will Affect Care: None marital status: Current Living Situation: Spouse Feels Safe at Home: Yes Safety Concerns: Feels Safe At This Time Smoking Status: Never smoker Hx Alcohol Use: Yes Alcohol type: wine Hx Substance Use: No Review of Systems Review of Systems: All systems reviewed & are unremarkable except as noted in HPI & below Physical Exam Constitutional: well developed, well nourished and average body habitus; no acute distress Respiratory: normal respiratory effort, lungs clear to auscultation Cardiovascular: Rate/Rhythm: regular rate and regular rhythm Heart Sounds: normal S1 and normal S2; no gallop, no murmur and no cardiac rub Vessels: no JVD and + radial pulses abnormal Extremities: no edema Gastrointestinal (Abdomen): normal bowel sounds, soft, nontender, no hepatosplenomegaly Skin: no rashes, warm and dry Neurologic: moves all extremities; no focal motor deficits Psychiatric: A+Ox3, euthymic affect Results & Data ([facility]) Vital Signs (Past 12 Hours) Vital Signs Temp Pulse Pulse Pulse Resp BP BP 04/28/19 11:42 36.7 C 59 L 18 148/75 H 04/28/19 08:00 36.5 C 60 18 143/72 H 04/28/19 05:13 36.4 C L 69 20 142/91 H 04/28/19 01:35 65 04/28/19 01:17 36.8 C 59 L 18 151/73 H 04/28/19 01:07 63 16 131/87 04/28/19 00:00 64 16 131/87 Pulse Ox 04/28/19 11:42 97 04/28/19 08:00 96 04/28/19 05:13 96 04/28/19 01:35 04/28/19 01:17 97 04/28/19 01:07 99 04/28/19 00:00 99 (1) Chest pain Chest pain type: unspecified Qualified Code(s): R07.9 - Chest pain, unspecified (2) HTN (hypertension) Hypertension type: essential hypertension Qualified Code(s): I10 - Essential (primary) hypertension
--- NOTE | 2019-04-28 12:11 | Hospitalist Progress Note ---
Date of Service April 28, 2019 Assessment & Plan (1) Atrial flutter, paroxysmal: Patient admitted with complaint of chest discomfort to 2-3 days history of palpitation, chest heaviness, shortness of breath, feeling dizzy and lightheaded In the ER rhythm noted to be a flutter/A. fib No evidence of ACS, troponins negative, echo shows normal EF, no wall motion abnormality Appreciate input from cardiology Patient started on sotalol, 80 mg p.o. twice daily Patient will need to stay in the hospital for first 5 dose daily EKG monitoring/assessment of QTC prolongation Plan to monitor and telemetry Coumadin resumed for stroke prophylaxis goal INR 23 (2) Atrial fibrillation: History of paroxysmal A. fib, Intolerant of beta-evelin in the past On diltiazem Continue Coumadin for stroke prophylaxis (3) Tachy-fina syndrome: Status post dual-chamber pacemaker placement on 11/07/2018 Postprocedure complication of pericardial tamponade, required pericardial drain and lead repositioning Pacemaker interrogation done Telemetry at present showed paced rhythm with heart rate between 7080 Patient started on sotalol load for symptomatic a flutter CODE STATUS: Full code DVT prophylaxis: Coumadin Disposition: Patient will need inpatient hospital stay/telemetry monitoring for next 24-48 hours for sotalol loading Will be discharged home when medically stable update given to patient's Mr. Waldo Santiago phone number #[phone] Admission and Anticipated Discharge Date Admission Date: April 28, 2019 Subjective Patient is seen at bedside, Denies of any chest discomfort or palpitation, No shortness of breath no dyspnea on exertion, has not had any symptoms since admission No fever or chills no cough Review of Systems Review of Systems: All systems reviewed & are unremarkable except as noted in HPI & below Constitutional: no fever, no chills and no fatigue Eyes: no problem reported Respiratory: no cough, no dyspnea and no wheezing Cardiovascular: no orthopnea, no palpitations, no lightheadedness, no syncope and no edema Gastrointestinal: no abdominal pain, no nausea and no vomiting Neurologic: no dizziness, no syncope and no headache(s) Physical Exam Constitutional: WD/WN, vitals as above Eyes: PERRL, conjunctivae normal, anicteric sclerae ENMT: external ear and nose normal, oropharynx normal Neck: trachea midline, no thyromegaly Respiratory: normal respiratory effort, lungs clear to auscultation Cardiovascular: RRR, no murmur, no edema Gastrointestinal (Abdomen): normal bowel sounds, soft, nontender, no hepatosplenomegaly Musculoskeletal: no cyanosis or clubbing, extremities motor strength 5/5 Skin: no rashes, warm and dry Neurologic: PERRL, EOMI, accommodation nl, no face palsy, no dysarthria Psychiatric: A+Ox3, euthymic affect Results & Data ([facility]) Vital Signs (Past 12 Hours) Vital Signs Temp Pulse Pulse Pulse Resp BP BP 04/28/19 11:42 36.7 C 59 L 18 148/75 H 04/28/19 08:00 36.5 C 60 18 143/72 H 04/28/19 05:13 36.4 C L 69 20 142/91 H 04/28/19 01:35 65 04/28/19 01:17 36.8 C 59 L 18 151/73 H 04/28/19 01:07 63 16 131/87 Pulse Ox 04/28/19 11:42 97 04/28/19 08:00 96 04/28/19 05:13 96 04/28/19 01:35 04/28/19 01:17 97 04/28/19 01:07 99 Diagnostic Findings Chest x-ray: There is decreased size of the cardiac silhouette from comparison suggestive of decreased size versus resolution of the previously noted large pericardial effusion. Unchanged left subclavian pacer. No pneumothorax, large pleural effusion or overt pulmonary edema. Minimal linear left lung base densities suggest atelectasis/scarring. Degenerative changes of the spine. Bilateral shoulder arthroplasties. EKG as per my interpretation: Rate 80, NSR, diffuse T wave flattening, low voltage (1) Atrial fibrillation Atrial fibrillation type: unspecified Qualified Code(s): I48.91 - Unspecified atrial fibrillation
[2019-04-28] MEDS ORDERED: SOTALOL HCL 80 MG TAB PO ONE (12:15)
[2019-04-28] MEDS: WARFARIN SOD 2.5 MG TAB PO SCH (16:58)
[2019-04-28] MEDS: SOTALOL HCL 80 MG TAB PO SCH (20:15)
[2019-04-29] MEDS: ACETAMINOPHEN 325 MG TAB PO PRN ×2 (01:11→23:37)
[2019-04-29] MEDS: LEVOTHYROXINE SODIUM 100 MCG TABLET PO SCH (05:08)
[2019-04-29 07:19] LABS: INR 2.3 (0.9-1.1)
[2019-04-29 07:42] LABS: BUN Creatinine Ratio 21.2 (10-20); Calcium 8.7 mg/dl (8.5-10.1); Creatinine Clr Calc Pharmacy 60.8 ml/min; Est GFR (African American) 86.9; Potassium 3.8 mmol/L (3.5-5.1)
[2019-04-29] MEDS: FLUOXETINE HCL 20 MG CAP PO SCH (07:52)
[2019-04-29] MEDS: SOTALOL HCL 80 MG TAB PO SCH ×2 (07:52→20:22)
[2019-04-29] MEDS: PRENATAL VITAMIN 1 TAB PO SCH (07:52)
[2019-04-29] MEDS: FERROUS SULFATE 325 MG TAB PO SCH (07:53)
[2019-04-29] MEDS: MULTIVITAMIN TAB PO SCH (07:53)
[2019-04-29] MEDS: dilTIAZem HCL 120 MG CAPCR PO SCH (07:53)
[2019-04-29] MEDS: OXYCODONE HCL IR 5 MG TAB (IMMEDIATE RELEASE) PO PRN ×2 (07:57→19:21)
--- NOTE | 2019-04-29 12:45 | Cardiology Progress Note ---
Date of Service April 29, 2019 Assessment & Plan (1) Atrial flutter, paroxysmal: (2) Chest pain: (3) Tachy-fina syndrome: (4) HTN (hypertension): Patient remains in sinus rhythm with addition of sotalol. Continue sotalol loading, 80 mg twice daily. Repeat ECG tomorrow approximately 2 hours after her fifth dose. If QTc remains below 500 ms, patient will be discharged home. Continue Coumadin for anticoagulation. Also continue diltiazem for the time being to improve rate control during periods of atrial fibrillation. Consider discontinuation in the outpatient settings if symptoms controlled. All questions answered to patient satisfaction. Subjective Patient seen and examined the bedside. Notes episode of palpitations last evening at approximately 5 PM while walking to the bathroom. No documented dysrhythmias on telemetry. Patient denies chest pain or shortness of breath. No recurrent lightheadedness or dizziness. Tolerating diet and medications. Offers no concerns/complaints at this time. Review of Systems Review of Systems: All systems reviewed & are unremarkable except as noted in HPI & below Physical Exam Constitutional: well developed, well nourished and average body habitus; no acute distress Respiratory: normal respiratory effort, lungs clear to auscultation Cardiovascular: Rate/Rhythm: regular rate and regular rhythm Heart Sounds: normal S1 and normal S2; no gallop, no murmur and no cardiac rub Vessels: no JVD and + radial pulses abnormal Extremities: no edema Gastrointestinal (Abdomen): normal bowel sounds, soft, nontender, no hepatosplenomegaly Skin: no rashes, warm and dry Neurologic: moves all extremities; no focal motor deficits Psychiatric: A+Ox3, euthymic affect Results & Data Vital Signs (Past 12 Hours) Vital Signs Temp Pulse Pulse Resp BP BP Pulse Ox 04/29/19 11:49 36.6 C 66 20 146/84 H 96 04/29/19 08:57 63 04/29/19 07:10 36.3 C L 63 20 153/91 H 95 04/29/19 05:04 36.4 C L 61 21 146/88 H 99 (1) Chest pain Chest pain type: unspecified Qualified Code(s): R07.9 - Chest pain, unspecified (2) HTN (hypertension) Hypertension type: essential hypertension Qualified Code(s): I10 - Essential (primary) hypertension
[2019-04-29] MEDS: WARFARIN SOD 2.5 MG TAB PO SCH (15:37)
--- NOTE | 2019-04-29 18:14 | Hospitalist Progress Note ---
Date of Service April 29, 2019 Assessment & Plan (1) Atrial flutter, paroxysmal: Patient admitted with complaint of chest discomfort to 2-3 days history of palpitation, chest heaviness, shortness of breath, feeling dizzy and lightheaded In the ER rhythm noted to be a flutter/A. fib No evidence of ACS, troponins negative, echo shows normal EF, no wall motion abnormality Appreciate input from cardiology Continue sotalol 80 mg p.o. twice daily Patient remains in sinus rhythm with rate controlled Plan for EKG tomorrow approximately 2 hours after fifth dose of p.o. sotalol If QTC below 500ms patient will be discharged home Coumadin resumed for stroke prophylaxis /INR therapeutic (2) Atrial fibrillation: History of paroxysmal A. fib, Intolerant of beta-evelin in the past/started on sotalol Continue diltiazem Continue Coumadin for stroke prophylaxis (3) Tachy-fina syndrome: Status post dual-chamber pacemaker placement on 11/07/2018 Postprocedure complication of pericardial tamponade, required pericardial drain and lead repositioning Pacemaker interrogation done Telemetry at present showed paced rhythm with heart rate between 7080 Patient started on sotalol load for symptomatic a flutter Now at sinus rhythm with rate controlled CODE STATUS: Full code DVT prophylaxis: Coumadin Disposition: Plan to discharge home tomorrow morning after fifth dose of sotalol update given to patient's Mr. Waldo Santiago phone number #[phone] Admission and Anticipated Discharge Date Admission Date: April 29, 2019 Subjective Patient continues to do well, No flutter or atrial fibrillation noted on telemetry remains on the sinus rate controlled No fever or chills, no shortness of breath no dyspnea on exertion Physical Exam Constitutional: WD/WN, vitals as above Eyes: PERRL, conjunctivae normal, anicteric sclerae ENMT: external ear and nose normal, oropharynx normal Neck: trachea midline, no thyromegaly Respiratory: normal respiratory effort, lungs clear to auscultation Cardiovascular: RRR, no murmur, no edema Gastrointestinal (Abdomen): normal bowel sounds, soft, nontender, no hepatosplenomegaly Musculoskeletal: no cyanosis or clubbing, extremities motor strength 5/5 Skin: no rashes, warm and dry Neurologic: PERRL, EOMI, accommodation nl, no face palsy, no dysarthria Psychiatric: A+Ox3, euthymic affect Results & Data ([facility]) Vital Signs (Past 12 Hours) Vital Signs Temp Pulse Pulse Resp BP BP Pulse Ox 04/29/19 16:41 67 04/29/19 15:15 36.4 C L 65 18 146/96 H 96 04/29/19 11:49 36.6 C 66 20 146/84 H 96 04/29/19 08:57 63 04/29/19 07:10 36.3 C L 63 20 153/91 H 95 (1) Atrial fibrillation Atrial fibrillation type: unspecified Qualified Code(s): I48.91 - Unspecified atrial fibrillation
--- NOTE | 2019-04-29 18:24 | Electrocardiogram Report ---
Test Reason : Blood Pressure : / mmHG Vent. Rate : 064 BPM Atrial Rate : 064 BPM P-R Int : 276 ms QRS Dur : 086 ms QT Int : 452 ms P-R-T Axes : 000 -16 007 degrees QTc Int : 466 ms Atrial-paced rhythm with prolonged AV conduction with Premature atrial complexes Poor R wave progression, consider anterior HI vs. lead placement vs. LVH Abnormal ECG When compared with ECG of 27-APR-2019 21:42, Nonspecific T wave abnormality no longer evident in Lateral leads QT has lengthened Confirmed by James Whaley ([id number]) on 04/29/2019 6:23:33 PM Referred By: REFERRED SELF Confirmed By:Roger Whaley
[2019-04-30] MEDS: LEVOTHYROXINE SODIUM 100 MCG TABLET PO SCH (06:02)
[2019-04-30 06:27] LABS: INR 2.1 (0.9-1.1); Prothrombin Time 21.5 Seconds (9.0-12.0)
[2019-04-30 07:01] LABS: BUN Creatinine Ratio 26.8 (10-20); Calcium 8.9 mg/dl (8.5-10.1); Creatinine Clr Calc Pharmacy 56.1 ml/min; Est GFR (African American) 78.2; Est GFR (Non-African American) 67.5; Magnesium 2.1 mg/dl (1.8-2.4); Potassium 3.9 mmol/L (3.5-5.1)
[2019-04-30] MEDS: SOTALOL HCL 80 MG TAB PO SCH ×2 (09:41→20:30)
[2019-04-30] MEDS: FLUOXETINE HCL 20 MG CAP PO SCH (09:42)
[2019-04-30] MEDS: PRENATAL VITAMIN 1 TAB PO SCH (09:42)
[2019-04-30] MEDS: MULTIVITAMIN TAB PO SCH (09:42)
[2019-04-30] MEDS: FERROUS SULFATE 325 MG TAB PO SCH (09:42)
[2019-04-30] MEDS: dilTIAZem HCL 120 MG CAPCR PO SCH (09:42)
--- NOTE | 2019-04-30 10:08 | Hospitalist Progress Note ---
Date of Service April 30, 2019 Assessment & Plan (1) Blurred vision, right eye: Patient complains of right eye double/blurred vision when looking out ordered/lateral gaze started this morning Had mild frontal headache Complains of right-sided neck pain, worse with movement, right neck area point tenderness noted No prior history of similar symptoms, She denies of any weakness or paresthesia No facial droop, tongue is midline, speech fluent Patient's INR has been therapeutic since admission Telemetry shows rhythm no episodes of a flutter or A. fib in the last [address] head noncontrast, CTA of head and neck Unable to do MRI of brain as patient has a pacemaker [facility] neurology consulted Case discussed with neurology Janet Del Rosario PA-C (2) Atrial flutter, paroxysmal: Patient has been doing well after starting on sotalol No a flutter or A. fib noted on telemetry last 24 this 48 hours Patient input from cardiology Follow EKG 2 hours post a.m. dose of sotalol Per cardiology patient's QTC remained stable Can be discharged home with p.o. sotalol, Coumadin anticoagulation-chronic therapy, Continue prior p.o. Cardizem 120 mg daily Cardiology will schedule outpatient routine follow-up Patient admitted with complaint of chest discomfort to 2-3 days history of palpitation, chest heaviness, shortness of breath, feeling dizzy and lightheaded EKG showed a flutter/A. fib Symptom has resolved after starting on sotalol, no recurrence of a flutter noted Discharge planning as outlined above (3) Atrial fibrillation: History of paroxysmal A. fib, Intolerant of beta-evelin in the past/started on sotalol-this been tolerating well, Heart rate remains well controlled, to be noted in telemetry since admission Continue on diltiazem 120 mg p.o. daily, patient's home med On Coumadin for stroke prophylaxis/INR therapeutic (4) Tachy-fina syndrome: Status post dual-chamber pacemaker Telemetry at present showed paced rhythm with heart rate between 7080 CODE STATUS: Full code DVT prophylaxis: Coumadin Disposition: Discharge home possibly later today after neurology evaluation Contact: Patient's Mr. Waldo Santiago phone number #[phone] Admission and Anticipated Discharge Date Admission Date: April 29, 2019 Subjective Patient complains of blurred vision/double vision on right eye noticed as she woke up this morning Had frontal headache, right-sided neck pain, worse with turning head Denies of any feeling of palpitation, chest heaviness, no shortness of breath or dyspnea on exertion Telemetry shows paced rhythm, no flutter or arrhythmia noted in last 24 hours Does not have any cough, no fever or chills No weakness or paresthesia of any part of body Review of Systems Review of Systems: All systems reviewed & are unremarkable except as noted in HPI & below Eyes: + diplopia (On right thigh) and + problem reported Respiratory: no cough, no dyspnea, no dyspnea on exertion and no wheezing Cardiovascular: no chest pain, no dyspnea at rest, no orthopnea, no paroxysmal nocturnal dyspnea, no palpitations, no lightheadedness, no syncope and no edema Physical Exam Constitutional: WD/WN, vitals as above Eyes: normal visual de [place] rosa by confrontation (Diplopia/blurred vision of right eye on lateral gaze), + anicteric sclerae and + nystagmus (Mild nystagmus noted on lateral movement right/left); no conjunctival abnormality ENMT: external ear and nose normal, oropharynx normal Neck: trachea midline, no thyromegaly Respiratory: normal respiratory effort, lungs clear to auscultation Cardiovascular: RRR, no murmur, no edema Gastrointestinal (Abdomen): normal bowel sounds, soft, nontender, no hepatosplenomegaly Musculoskeletal: no cyanosis or clubbing, extremities motor strength 5/5 Skin: no rashes, warm and dry Neurologic: PERRL, EOMI, accommodation nl, no face palsy, no dysarthria Psychiatric: A+Ox3, euthymic affect Results & Data ([facility]) Vital Signs (Past 12 Hours) Vital Signs Temp Pulse Pulse Pulse Resp BP Pulse Ox 04/30/19 07:46 67 04/30/19 07:30 36.6 C 65 18 138/84 90 04/30/19 03:41 36.4 C L 66 20 111/70 97 04/29/19 23:33 36.3 C L 68 17 132/82 95 (1) Atrial fibrillation Atrial fibrillation type: unspecified Qualified Code(s): I48.91 - Unspecified atrial fibrillation
[2019-04-30] MEDS ORDERED: OPTIRAY 320 125ml IV PRN (10:39)
--- NOTE | 2019-04-30 11:04 | CT Scan Report ---
HEAD CT NONCONTRAST CT DOSE: HISTORY: rt eye blurred vision r/o CVA TECHNIQUE: Multiaxial CT images of the head were performed without the use of intravenous contrast. A utomated exposure control was utilized for this study. A dose lowering technique was utilized adheri ng to the principles of ALARA. Comparison: Head CT 11/04/2015. Findings: The paranasal sinuses and mastoid air cells are clear. The calvarium and skull base are int act. The ventricles and sulci are within normal limits. There is no mass, hematoma, midline shift, or acute infarct. Focal sclerosis within the left mandibular condyle which is new compared to the prior study. Impression: 1. No acute intracranial abnormality. 2. Focal sclerosis within the left mandibular condyle which is new compared the prior study. This cou ld represent a bone island. A sclerotic lesion is considered less likely but not entirely excluded. ACT 112: Negative or not required by law. Electronically signed by: Kale García M.D. 04/30/2019 11:03 AM
--- NOTE | 2019-04-30 11:09 | CT Scan Report ---
CT angio head w con CLINICAL HISTORY: 74 years-old Female presenting with rt eye blurred vision /rule out CVA. TECHNIQUE: Multidetector CT angiography of the head was performed after the administration of intrave nous contrast. 3-D volumetric and/or maximum intensity projection (MIP) images were subsequently samara nstructed for review. IV contrast: 120 mL of Optiray 320. One or more dose lowering techniques were u sed consistent with the principles of ALARA (as low as reasonably achievable), including automatic ex posure control, mA or kV adjustment to individual patient size, and/or use of iterative reconstructio n. COMPARISON: None. CT DOSE (mGy.cm): The estimated cumulative dose is 1174.45. FINDINGS: Hydrator Operator topogram: Bilateral shoulder arthroplasties. Left subclavian implanted cardiac device. Anterior circulation: Intracranial portions of the internal carotid arteries patent to the level of t he termini. Anterior cerebral arteries patent. Middle cerebral arteries patent. Anterior communicatin g artery patent. Posterior circulation: Right dominant vertebral artery. Intradural portions of the vertebral arteries patent. Posterior inferior cerebellar arteries patent. Basilar artery patent. Anterior inferior cere bellar arteries poorly visualized. Superior cerebellar arteries patent. Near origin of the righ t posterior cerebral artery (RIPSAW OPERATOR). Left RIPSAW OPERATOR also patent with conventional anatomy. Right posterior co mmunicating artery (P-comm) patent. Left P-comm hypoplastic or aplastic. Dural venous sinuses: Patent. Other: Allowing for the phase of contrast, brain parenchyma within normal limits. Calvarium intact. IMPRESSION: 1. No evidence of aneurysm, focal vessel occlusion, or significant stenosis of the intracranial casey sapphire. ACT 112: Negative or not required by law. Electronically signed by: Rubin Jenkins M.D. 04/30/2019 11:08 AM
--- NOTE | 2019-04-30 11:15 | CT Scan Report ---
NECK CTA HISTORY: neck pain /rt eye blurred vision TECHNIQUE: Multiaxial CT images of the neck were performed following the intravenous administration o f contrast to evaluate the major cervical vessels. Maximum intensity projection images were also obta ined. All measurements were calculated based on NASCET criteria. A dose lowering technique was utili zed adhering to the principles of ALARA. COMPARISON STUDY: None. FINDINGS: The aortic arch and proximal great vessels are widely patent. There is no significant sten osis, occlusion, or dissection identified within the bilateral common carotid, internal carotid, or v ertebral arteries. The left vertebral artery is hypoplastic in comparison to the right. Minimal calci fied plaque within the bilateral carotid bifurcations. Focal sclerosis within the left mandibular con dyle. IMPRESSION: 1. No significant stenosis, occlusion, or dissection identified within the carotid or vertebral arter ies. 2. Focal nonspecific sclerosis within the left mandibular condyle. This could be due to degenerative change or bone island. A sclerotic lesion is considered less likely but not entirely excluded. ACT 112: Negative or not required by law. Electronically signed by: Kale García M.D. 04/30/2019 11:13 AM
--- NOTE | 2019-04-30 11:48 | Cardiology Progress Note ---
Date of Service April 30, 2019 Assessment & Plan (1) Atrial flutter, paroxysmal: (2) Chest pain: (3) Tachy-fina syndrome: (4) Visual changes: (5) HTN (hypertension): Repeat twelve-lead ECG. If QTc remains below 500 ms patient will continue sotalol 80 mg twice daily in the outpatient setting. Diltiazem will be continued as previously ordered to improve rate control during periods of atrial fibrillation. Consider discontinuation in the outpatient setting. Continue Coumadin for goal INR of 2.0-3.0 Neurology consultation pending regarding visual disturbance. No other focal deficit appreciated on physical exam. Patient may require funduscopic exam. Subjective Patient seen and examined the bedside. No recurrent atrial fibrillation on telemetry. Complaining of right lateral visual field deficit beginning this morning. Denies focal weakness, slurred speech, gait instability, paresthesias, dysphagia, or facial asymmetry. CT of the head performed demonstrating no evidence of acute cerebrovascular accident. Patient denies chest pain or shortness of breath. INR therapeutic since February 07, 2019. Review of Systems Review of Systems: All systems reviewed & are unremarkable except as noted in HPI & below Physical Exam Constitutional: well developed, well nourished and average body habitus; no acute distress Respiratory: normal respiratory effort, lungs clear to auscultation Cardiovascular: Rate/Rhythm: regular rate and regular rhythm Heart Sounds: normal S1 and normal S2; no gallop, no murmur and no cardiac rub Vessels: no JVD and + radial pulses abnormal Extremities: no edema Gastrointestinal (Abdomen): normal bowel sounds, soft, nontender, no hepatosplenomegaly Skin: no rashes, warm and dry Neurologic: moves all extremities and + focal motor deficit (Right lateral gaze visual field deficit) No evidence of pronator drift. No focal upper or lower extremity weakness. Aside from visual field deficit, cranial nerves otherwise appear intact. Psychiatric: A+Ox3, euthymic affect Results & Data Vital Signs (Past 12 Hours) Vital Signs Temp Pulse Pulse Pulse Resp BP Pulse Ox 04/30/19 11:36 36.7 C 68 19 146/86 H 95 04/30/19 07:46 67 04/30/19 07:30 36.6 C 65 18 138/84 90 04/30/19 03:41 36.4 C L 66 20 111/70 97 (1) Chest pain Chest pain type: unspecified Qualified Code(s): R07.9 - Chest pain, unspecified (2) HTN (hypertension) Hypertension type: essential hypertension Qualified Code(s): I10 - Essential (primary) hypertension
--- NOTE | 2019-04-30 12:55 | Neurology Consultation ---
Date of Consultation April 30, 2019 Assessment & Plan (1) Visual changes: 1. CTA head and neck- no occlusion or acute narrowing 2. MRI would be helpful to evaluate for embolic stroke. would repeat CT head tomorrow 3. continue coumadin with INR 2.0-3.0 4. cardiology for management of Afib 5. aspirin 81 mg - for stroke prevention unless contraindicated in this patient 6. double vision - in all de la rosa per patient exam 7. will need ophthalmology exam as outpatient 8. TTE- no ASD 9. TSH- ok 10. myasthenia labs due to off and on double vision and stated weakness with climbing stairs- acetylcholine AB ordered with tomorrow am labs Present on Admission?: No (2) Breath shortness: Present on Admission?: Yes (3) Atrial fibrillation: Present on Admission?: Yes Supervising Physician Co-Signing Physician Notes I have seen and discussed above patient with Dr Celestine Moya, neurology I have seen and interviewed this woman and performed a neurologic examination The history is vague. She now relates intermittent short duration periods of lateral diplopia on head turning to the right over the past 3 to 4 months following her hospitalization in [place] but none of these episodes have been sustained more than seconds to minutes. She was admitted for rapid atrial fibrillation, was on Coumadin, her INR was therapeutic but now she has developed upon awakening this morning, a constant lateral diplopia on gaze to the right but unfortunately also has some intermittent diplopia on near gaze and on examination has a somewhat hyper active convergence reflex and no clear-cut evidence for a single extraocular muscle weakness. The history however suggest that this may be a 6th nerve palsy or potentially fractionated left 3rd nerve palsy with only medial rectus weakness. Once one has to postulate fractionation of a cranial nerve then a more likely diagnosis would be a defect in neuromuscular transmission and because of this I think we need to get an anti-acetylcholine receptor antibody and outpatient ophthalmology evaluation Thus far CT scans and CTAs have shown no significant occlusive disease in the posterior circulation or evidence for a completed infarction and we will have simply repeat a CT scan which I suspect will be negative as any infarction at could cause this type of diplopia is by definition her to be very small and likely beyond the resolution prior of a CT scan of the brainstem but will go ahead and try it just to exclude a hemorrhage I would add an aspirin to her current Coumadin but go low-dose acting on the assumption that this was a small embolic event or even a primary small vessel event. Again I am bothered by the history that suggests that this has been a process that this appeared intermittently for about 4 to 5 months in this setting again defect in neuromuscular transmission might be the best overall explanation If symptoms persist then we do not find clear evidence for a vascular event we may end up with an empiric trial of Mestinon which in a woman with cardiovascular disease and ischemic cardiomyopathy might be a somewhat risky process and would have to be titrated very slowly lest variable forms of cardiac arrhythmias be precipitated. With a pacemaker on board significant bradycardia certainly would be prevented and if anything a tachyarrhythmia would be more likely with mestinon introduction. We will follow-up tomorrow Celestine Moya MD History of Present Illness Reason for Consultation: rt eye diplopia and blurred vision Requesting Physician: Shaneka Lua MD Attending Physician: Shaneka Lua MD History of Present Illness Rossy is a 74 year old female with PMH- A. fib, tachybradycardia syndrome s/p pacemaker, HTN presents to [facility] ED 04/27/2019 for chest heaviness associated with shortness of breath and feeling as though her heart is racing. She felt her heart beating irregularly with midsternal chest heaviness and some shortness of breath. After admission she started seeing double and admits to a headache across her forehead. She needs tylenol to go to sleep. She states she was not on aspirin but did take her Coumadin regularly and had INR checked as scheduled. denies CP, SOB, abdominal pain, one sided weakness, numbness tingling, N, V, slurred speech, swallowing issues. Allergies Allergy/AdvReac Type Severity Reaction Status Date / Time No Known Allergies Allergy Unverified 04/27/19 22:36 Home Medications Home Medications Medication Instructions Recorded Confirmed Type acetaminophen [Tylenol Extra 1,000 mg PO TID PRN 12/13/17 04/27/19 History Strength] calcium carbonate-vitamin D3 1 tab PO QAM 12/13/17 04/27/19 History levothyroxine 100 mcg PO DAILY 12/13/17 04/27/19 History multivitamin 1 tab PO DAILY 12/13/17 04/27/19 History oxycodone 5 mg PO Q12 PRN 12/13/17 04/27/19 History fluoxetine 40 mg PO DAILY 09/27/18 04/27/19 History warfarin [Coumadin] 2.5 mg PO 6XWK 11/07/18 04/27/19 History diltiazem HCl 120 mg PO QAM #30 cap 11/08/18 04/27/19 Rx ferrous sulfate 325 mg PO DAILY 04/27/19 04/27/19 History 21-iron fu-folic acid 1 tab PO DAILY 04/27/19 04/27/19 History [ Complete] warfarin 5 mg PO .QFRIDAY 04/27/19 04/27/19 History sotalol 80 mg PO BID #60 tab 04/30/19 Rx Patient History Medical History Arrhythmia Hip dislocation, right (Resolved) HTN (hypertension) (Chronic) Continue norvasc Hypersomnolence (Chronic) Hypothyroidism (Chronic) Left knee DJD (Chronic) Paroxysmal atrial fibrillation (Chronic) Traumatic hematoma of buttock (Inactive) Surgical History History of left knee replacement History of total hip replacement (Chronic) Family History Grandfather (Maternal) Breast cancer Mother Colorectal cancer Sister Ovarian cancer Social History Preferred Language: Guine[place] Communication Ability: Effective Beliefs That Will Affect Care: None marital status: Current Living Situation: Spouse Feels Safe at Home: Yes Safety Concerns: Feels Safe At This Time Smoking Status: Never smoker Hx Alcohol Use: Yes Alcohol type: wine Hx Substance Use: No Physical Exam Physical Exam: Physical Exam: Constitutional: appearance over-nourished Ears, Nose, Mouth and Throat: mucous membranes moist, no injection and skin nor mal, eyes normal Cardiovascular: normal S-1 and S-2 and regular rate and rhythm Respiratory: clear to auscultation (CTA) and no rales, ronchi or wheeze Musculoskeletal: no peripheral edema and good distal pulses Skin: no stigmata of neurocutaneous disease noted and normal and intact Eyes: extraocular muscles intact (EOMI) and pupils equal, round and reactive to light (PERRL), double vision in all de la rosa with following finger. near vision is spared NEUROLOGIC EXAMINATION: Mental status: Alert and interactive Oriented to full date and location Oriented to person Speech fluent with no evidence of aphasia Cranial Nerves smile eye brow raise symmetric Reflexes: Deep tendon reflexes were symmetrical and graded 2/5. down going toes Sensory: no deficit with light or cool touch Coordination: finger to nose with bi pass bilaterally Gait/Stance: Posture lying flat in bed Motor: Negative for pronator drift of out stretched arms with eyes closed. Strength: biceps triceps hand assembler piano 5/5 bilaterally, hip flex plantar flex ext 5/5 Results & Data Vital Signs (Past 12 Hours) Vital Signs Temp Pulse Pulse Pulse Resp BP Pulse Ox 04/30/19 11:36 36.7 C 68 19 146/86 H 95 04/30/19 07:46 67 04/30/19 07:30 36.6 C 65 18 138/84 90 04/30/19 03:41 36.4 C L 66 20 111/70 97 Laboratory Results Abnormal lab results 04/30/19 04/30/19 Range/Units 05:54 05:54 PT 21.5 H (9.0-12.0) Seconds INR 2.1 H (0.9-1.1) Chloride 109 H (98-107) mmol/L BUN 23 H (7-18) mg/dl BUN/Creatinine Ratio 26.8 H (10-20) Diagnostic Findings CTA neck-. No significant stenosis, occlusion, or dissection identified within the carotid or vertebral arteries. 2. Focal nonspecific sclerosis within the left mandibular condyle. This could be due to degenerative change or bone island. A sclerotic lesion is considered less likely but not entirely excluded. CTA head- No evidence of aneurysm, focal vessel occlusion, or significant stenosis of the intracranial arteries. CT head-o acute intracranial abnormality. Focal sclerosis within the left mandibular condyle which is new compared the prior study. This could represent a bone island. A sclerotic lesion is considered less likely but not entirely excluded. CXR- there is decreased size of the cardiac silhouette from comparison suggestive of decreased size versus resolution of the previously noted large pericardial effusion. Unchanged left subclavian pacer. No pneumothorax, large pleural effusion or overt pulmonary edema. Minimal linear left lung base densities suggest atelectasis/scarring. Degenerative changes of the spine. Bilateral shoulder arthroplasties. TTE 55-60% no ASD (1) Atrial fibrillation Atrial fibrillation type: unspecified Qualified Code(s): I48.91 - Unspecified atrial fibrillation
[2019-04-30] MEDS: WARFARIN SOD 2.5 MG TAB PO SCH (15:38)
--- NOTE | 2019-04-30 16:28 | Electrocardiogram Report ---
Test Reason : Blood Pressure : / mmHG Vent. Rate : 066 BPM Atrial Rate : 066 BPM P-R Int : 274 ms QRS Dur : 090 ms QT Int : 460 ms P-R-T Axes : 000 -16 034 degrees QTc Int : 482 ms Atrial-paced rhythm with prolonged AV conduction with Premature atrial complexes Possible Anterolateral infarct , age undetermined Abnormal ECG When compared with ECG of 29-APR-2019 10:07, Premature atrial complexes are now Present Borderline criteria for Anterolateral infarct are now Present Confirmed by James Whaley ([id number]) on 04/30/2019 4:28:18 PM Referred By: REFERRED SELF Confirmed By:Roger Whaley
[2019-04-30] MEDS: OXYCODONE HCL IR 5 MG TAB (IMMEDIATE RELEASE) PO PRN (19:24)
[2019-05-01] MEDS: OXYCODONE HCL IR 5 MG TAB (IMMEDIATE RELEASE) PO PRN ×2 (02:16→14:13)
[2019-05-01] MEDS: LEVOTHYROXINE SODIUM 100 MCG TABLET PO SCH (05:42)
[2019-05-01 06:15] LABS: INR 1.8 (0.9-1.1); Prothrombin Time 18.2 Seconds (9.0-12.0)
--- NOTE | 2019-05-01 08:18 | CT Scan Report ---
CT SCAN OF THE BRAIN WITHOUT IV CONTRAST CLINICAL HISTORY: Blurry vision. COMPARISON STUDY: CT of the brain dated 04/30/2019. TECHNIQUE: Unenhanced axial CT scan of the brain is performed from the vertex to the skull base. A do se lowering technique was utilized adhering to the principles of ALARA. CT DOSE: 537.48 mGy.cm FINDINGS: Brain parenchyma: There are age-related involutional changes noting mild subcortical and periventric ular microangiopathic change. There is no hemorrhage, mass effect, or evidence of acute territorial i schemia by CT criteria. Quevedo-white matter differentiation is preserved. No extra-axial fluid collecti on is seen. Ventricles, sulci, cisterns: Prominent secondary to involutional change. Intracranial vasculature: There is atherosclerotic calcification of the cavernous carotid arteries. Calvarium: The calvarium appears intact. Sclerotic change in the left mandibular condyle is likely on a degenerative basis. Sinuses and mastoids: The visualized paranasal sinuses are clear. The mastoid air cells are well pneu matized. Orbits: The bony orbits are grossly intact. There are bilateral ocular lens implants. IMPRESSION: There is no hemorrhage, mass effect, or evidence of acute territorial ischemia by CT crit cassidy. ACT 112: Negative or not required by law. Electronically signed by: Nick Palacios M.D. 05/01/2019 8:17 AM
[2019-05-01] MEDS: FERROUS SULFATE 325 MG TAB PO SCH (08:22)
[2019-05-01] MEDS: SOTALOL HCL 80 MG TAB PO SCH (08:22)
[2019-05-01] MEDS: PRENATAL VITAMIN 1 TAB PO SCH (08:22)
[2019-05-01] MEDS: MULTIVITAMIN TAB PO SCH (08:23)
[2019-05-01] MEDS: dilTIAZem HCL 120 MG CAPCR PO SCH (08:23)
[2019-05-01] MEDS: FLUOXETINE HCL 20 MG CAP PO SCH (08:23)
--- NOTE | 2019-05-01 12:52 | Cardiology Progress Note ---
Date of Service May 01, 2019 Assessment & Plan (1) Atrial flutter, paroxysmal: (2) Chest pain: (3) Tachy-fina syndrome: (4) Visual changes: (5) HTN (hypertension): Continue sotalol 80 mg twice daily. Diltiazem will be continued as previously ordered to improve rate control during periods of atrial fibrillation. Consider discontinuation in the outpatient setting. Continue Coumadin for goal INR of 2.0-3.0 Appreciate neurology consultation. In regard to patient's permanent pacemaker, her device is MRI compatible. She may proceed with MRI of the brain if deemed necessary by neurologic specialist. Subjective Patient seen and examined at the bedside. Visual disturbance has nearly resolved. Denies focal weakness, slurred speech, paresthesias, or dysphasia. Repeat CT performed this morning unremarkable. Remains in atrial paced rhythm on telemetry. QTc within normal limits per repeat ECG this a.m. Patient offers no other concerns/complaints. Review of Systems Review of Systems: All systems reviewed & are unremarkable except as noted in HPI & below Physical Exam Constitutional: well developed, well nourished and average body habitus; no acute distress Respiratory: normal respiratory effort, lungs clear to auscultation Cardiovascular: Rate/Rhythm: regular rate and regular rhythm Heart Sounds: normal S1 and normal S2; no gallop, no murmur and no cardiac rub Vessels: no JVD and + radial pulses abnormal Extremities: no edema Gastrointestinal (Abdomen): normal bowel sounds, soft, nontender, no hepatosplenomegaly Skin: no rashes, warm and dry Neurologic: moves all extremities and + focal motor deficit (Right lateral gaze visual field deficit) Psychiatric: A+Ox3, euthymic affect Results & Data Vital Signs (Past 12 Hours) Vital Signs Temp Pulse Pulse Resp BP Pulse Ox 05/01/19 11:07 36.7 C 65 18 118/77 94 05/01/19 07:20 64 05/01/19 07:16 36.4 C L 69 17 156/80 H 96 05/01/19 04:00 36.3 C L 67 17 122/75 95 (1) Chest pain Chest pain type: unspecified Qualified Code(s): R07.9 - Chest pain, unspecified (2) HTN (hypertension) Hypertension type: essential hypertension Qualified Code(s): I10 - Essential (primary) hypertension
[2019-05-01] MEDS ORDERED: LORazepam 0.5 MG TAB PO PRN (13:25)
--- NOTE | 2019-05-01 13:48 | Communication Note ---
Date of Service: May 01, 2019 I saw Swetha today in follow-up and and pleased to report that her diplopia is now essentially gone and probably cleared up late last evening although she still has the intermittent lateral diplopia at extremes of lateral gaze to the right that she has had on and off for 6 months or more I really cannot find any extraocular dysmotility on confrontation exam but she still has a heightened convergence spasm when she tries to look at objects without a photo of her face. I do not see any evidence for right lateral rectus paresis or gaze palsy and find no other areas of significant muscle weakness other than what would be expected in a 74-year-old woman with an underlying cardiomyopathy She apparently cannot have an MRI scan we discussed doing it today but she is insistent on the open unit. She reluctantly would consent to having one done on this mild sedation will get us work this out with her primary care physician but I do not think this is essential, I have strong doubts that this was a vascular event, I am going to treat her briefly with aspirin anyway until we have a chance to see her back in the office and if we get an MRI what may have to do on an outpatient basis to be sure there was not a small lesion in the brainstem and by that time the anti-acetylcholine receptor antibody titer should be back and perhaps will even have an kennel worker on board although many offices are closed and will be so until the pandemic is hopefully run its course I have no objections to her being discharged today and we will arrange for her to be seen in follow-up in about 4 to 6 weeks at least by telephone consultation Celestine Moya MD
--- NOTE | 2019-05-01 14:28 | Electrocardiogram Report ---
Test Reason : Blood Pressure : / mmHG Vent. Rate : 066 BPM Atrial Rate : 060 BPM P-R Int : 294 ms QRS Dur : 086 ms QT Int : 450 ms P-R-T Axes : 000 -27 020 degrees QTc Int : 471 ms Atrial-paced rhythm with prolonged AV conduction with occasional supraventricular complexes and Aditi ture atrial complexes Minimal voltage criteria for LVH, may be normal variant Poor R wave progression, consider anterior MS vs. lead placement vs. LVH Abnormal ECG When compared with ECG of 30-APR-2019 11:56, No significant change was found Confirmed by James Whaley ([id number]) on 05/01/2019 2:28:48 PM Referred By: REFERRED SELF Confirmed By:Roger Whaley
--- NOTE | 2019-05-01 14:35 | Electrocardiogram Report ---
Test Reason : Blood Pressure : / mmHG Vent. Rate : 065 BPM Atrial Rate : 067 BPM P-R Int : 278 ms QRS Dur : 090 ms QT Int : 432 ms P-R-T Axes : 000 -29 035 degrees QTc Int : 449 ms Atrial-paced rhythm with prolonged AV conduction with Premature atrial complexes Abnormal ECG When compared with ECG of 01-MAY-2019 06:22, (unconfirmed) No significant change was found Confirmed by James Whaley ([id number]) on 05/01/2019 2:34:41 PM Referred By: REFERRED SELF Confirmed By:Roger Whaley
[2019-05-01] MEDS ORDERED: GADOBUTROL 65ML VIAL IV PRN (16:34)
[2019-05-01] MEDS: WARFARIN SOD 2.5 MG TAB PO SCH (16:36)
--- NOTE | 2019-05-01 16:56 | Hospitalist Progress Note ---
Date of Service May 01, 2019 Assessment & Plan (1) Blurred vision, right eye: Symptom has completely resolved today [facility] neurology consulted appreciate input Patient had and detailed neuro imaging done: Including CT head noncontrast, CTA of head: No evidence of aneurysm, no focal vessel dissection, no significant stenosis, no focal vessel occlusion CTA of neck: No significant stenosis, occlusion or dissection identified within the carotid or vertebral arteries. MRI of brain(patient's pacemaker is MRI compatible) IMPRESSION: 1. No acute intracranial abnormality, specifically there is no evidence of acute or subacute infarct. 2. Age-related involutional changes with mild chronic microvascular ischemic disease. 3. No abnormal enhancement. Neurology, patient did not had any acute vascular event Recommends for brief episode of addition of low-dose aspirin 81 mg daily with addition to Coumadin Neurology follow-up in clinic in 4-6 weeks (2) Atrial flutter, paroxysmal: Remains in flutter with rate controlled on sotalol Should input from cardiology Patient is discharged home with p.o. sotalol 80 mg p.o. daily Coumadin anticoagulation-chronic therapy, Continue prior p.o. Cardizem 120 mg daily Cardiology will schedule outpatient routine follow-up Patient admitted with complaint of chest discomfort to 2-3 days history of palpitation, chest heaviness, shortness of breath, feeling dizzy and lightheaded EKG showed a flutter/A. fib Symptom has resolved after starting on sotalol, no recurrence of a flutter noted Discharge planning as outlined above (3) Atrial fibrillation: History of paroxysmal A. fib, Intolerant of beta-evelin in the past And started on sotalol 80 mg twice daily Heart rate remains well controlled, no arrhythmia noted in telemetry since admission Continue on diltiazem 120 mg p.o. daily, patient's home med On Coumadin for stroke prophylaxis/INR therapeutic (4) Tachy-fina syndrome: Status post dual-chamber pacemaker Telemetry at present showed paced rhythm with heart rate between 7080 CODE STATUS: Full code DVT prophylaxis: Coumadin Disposition: Stable to be discharged home today Admission and Anticipated Discharge Date Admission Date: April 29, 2019 Subjective No complaint of blurred vision, or right eye double vision today All her symptoms are resolved, Headache, no dizzy spell or lightheadedness No arrhythmia on telemetry MRI of brain shows normals study no evidence of any stroke or any acute changes Stable to be discharged home today Review of Systems Review of Systems: All systems reviewed & are unremarkable except as noted in HPI & below Eyes: no diplopia and no problem reported Physical Exam Constitutional: WD/WN, vitals as above Eyes: PERRL, conjunctivae normal, anicteric sclerae ENMT: external ear and nose normal, oropharynx normal Neck: trachea midline, no thyromegaly Respiratory: normal respiratory effort, lungs clear to auscultation Cardiovascular: RRR, no murmur, no edema Gastrointestinal (Abdomen): normal bowel sounds, soft, nontender, no hepatosplenomegaly Musculoskeletal: no cyanosis or clubbing, extremities motor strength 5/5 Skin: no rashes, warm and dry Neurologic: PERRL, EOMI, accommodation nl, no face palsy, no dysarthria Psychiatric: A+Ox3, euthymic affect Results & Data ([facility]) Vital Signs (Past 12 Hours) Vital Signs Temp Pulse Pulse Resp BP Pulse Ox 05/01/19 15:14 65 05/01/19 14:48 36.6 C 65 20 145/78 H 94 05/01/19 11:07 36.7 C 65 18 118/77 94 05/01/19 07:20 64 05/01/19 07:16 36.4 C L 69 17 156/80 H 96 (1) Atrial fibrillation Atrial fibrillation type: unspecified Qualified Code(s): I48.91 - Unspecified atrial fibrillation
--- NOTE | 2019-05-01 17:04 | Magnetic Resonance Report ---
MR brain wo/w con HISTORY: 74 years-old Female r/o stroke acute strokelike symptoms. COMPARISON: CT head of same day, brain MRI 01/16/2010 TECHNIQUE: Multiplanar multisequence MRI of the brain was obtained both with and without the use of 7 .5 mL Gadavist FINDINGS: There is no restricted diffusion to suggest acute or subacute infarct. Midline structures including t he corpus callosum, brainstem, optic chiasm, pituitary and pineal glands appear unremarkable the sagi ttal T1 series. No cerebellar tonsillar herniation. Degenerative changes are noted about the cervical spine. There is no acute intracranial hemorrhage, midline shift, abnormal extra-axial collection, hydrocepha jose francisco or intracranial mass. Age-related involutional changes with ex vacuo ventriculomegaly. Mild patch y T2/FLAIR hyperintensities have progressed from comparison and are suggestive of mild chronic microv ascular ischemic disease. There is no abnormal intra-axial or extra-axial enhancement. Mildly motion degraded exam. Major vascular flow voids are patent. Mastoid air cells and paranasal sinuses are gene rally clear. The skull and soft tissues are within normal limits. Prior bilateral lens replacement. IMPRESSION: 1. No acute intracranial abnormality, specifically there is no evidence of acute or subacute infarct. 2. Age-related involutional changes with mild chronic microvascular ischemic disease. 3. No abnormal enhancement. ACT 112: Negative or not required by law. The above report was generated using voice recognition software. It may contain grammatical, syntax o r spelling errors. Electronically signed by: Ozzie Welch M.D. 05/01/2019 5:02 PM
--- NOTE | 2019-05-02 05:41 | Discharge Summary ---
Date of Service May 02, 2019 Admission HPI Per Admitting Provider History obtained from patient and records. Medical history significant for SSS sp PPM on Coumadin, hypertension, hyperlipidemia, hx narcolepsy as per records, hypothyroidism, mood disorder, recurrent hip dislocations. Recent ER visit last November 2017 for pericardial tamponade. Patient transferred to [facility] where she underwent pericardiocentesis and lead repositioning. Last week patient was from sleep with squeezing chest discomfort lasting longer than an hour then spontaneously resolving. Patient worried about a small heart attack. Advice to go to the ER by PCPs office but patient unable to comply. Patient was watching television and doing something in her closet few hours ago when she noted palpitations causing chest heaviness and some shortness of breath. Symptoms somewhat different from last week's attack. No unusual stress at home. No abdominal pain. Loose stools, not bloody. No emesis. No recent travel/antibiotic Rx. Patient noted to be tachycardic upon arrival at the ER. Symptoms resolved after aspirin and nitroglycerin administration. MEDICAL HISTORY: SURGERIES Hysterectomy. Cholecystectomy. Breast reduction. Appendectomy. hip surgery, knee surgery, cataract surgery, right colectomy, PPM, blepharoplasty, shoulder surgery, lipectomy FAMILY HISTORY: Colon cancer, uterine ovarian cancer, breast cancer as per records, dementia, Parkinson's disease. PSHX : Non-smoker, daily ETOH intake, retired from office work Principal Diagnosis Aflutter /Afib Discharge Exam Constitutional WD/WN, vitals as above Eyes PERRL, conjunctivae normal, anicteric sclerae normal visual de la rosa by confrontation (Diplopia/blurred vision of right eye on lateral gaze), + anicteric sclerae and + nystagmus (Mild nystagmus noted on lateral movement right/left); no conjunctival abnormality ENMT external ear and nose normal, oropharynx normal Neck trachea midline, no thyromegaly Respiratory normal respiratory effort, lungs clear to auscultation Cardiovascular RRR, no murmur, no edema Gastrointestinal (Abdomen) normal bowel sounds, soft, nontender, no hepatosplenomegaly Musculoskeletal no cyanosis or clubbing, extremities motor strength 5/5 Skin no rashes, warm and dry Neurologic PERRL, EOMI, accommodation nl, no face palsy, no dysarthria Psychiatric A+Ox3, euthymic affect Discharge Data Allergies Allergy/AdvReac Type Severity Reaction Status Date / Time No Known Allergies Allergy Unverified 04/27/19 22:36 Consultations 04/27/19 22:55 ED Decision to Admit Stat 04/28/19 01:29 Consult Cardiology Routine 04/30/19 09:59 Consult Neurology Routine Ordered Studies 04/30/19 10:45 CT angio head w con Stat CT angio neck with con Stat CT head/brain wo con Stat 05/01/19 08:00 CT head/brain wo con Routine 05/01/19 13:02 MR brain wo/w con Routine Hospital Course (1) Blurred vision, right eye: Symptom has completely resolved today [facility] neurology consulted appreciate input Patient had and detailed neuro imaging done: Including CT head noncontrast, CTA of head: No evidence of aneurysm, no focal vessel dissection, no significant stenosis, no focal vessel occlusion CTA of neck: No significant stenosis, occlusion or dissection identified within the carotid or vertebral arteries. MRI of brain(patient's pacemaker is MRI compatible) IMPRESSION: 1. No acute intracranial abnormality, specifically there is no evidence of acute or subacute infarct. 2. Age-related involutional changes with mild chronic microvascular ischemic disease. 3. No abnormal enhancement. Neurology, patient did not had any acute vascular event Recommends for brief episode of addition of low-dose aspirin 81 mg daily with addition to Coumadin Neurology follow-up in clinic in 4-6 weeks (2) Atrial flutter, paroxysmal: Remains in flutter with rate controlled on sotalol Should input from cardiology Patient is discharged home with p.o. sotalol 80 mg p.o. daily Coumadin anticoagulation-chronic therapy, Continue prior p.o. Cardizem 120 mg daily Cardiology will schedule outpatient routine follow-up Patient admitted with complaint of chest discomfort to 2-3 days history of palpitation, chest heaviness, shortness of breath, feeling dizzy and lightheaded EKG showed a flutter/A. fib Symptom has resolved after starting on sotalol, no recurrence of a flutter noted Discharge planning as outlined above (3) Atrial fibrillation: History of paroxysmal A. fib, Intolerant of beta-evelin in the past And started on sotalol 80 mg twice daily Heart rate remains well controlled, no arrhythmia noted in telemetry since admission Continue on diltiazem 120 mg p.o. daily, patient's home med On Coumadin for stroke prophylaxis/INR therapeutic (4) Tachy-fina syndrome: Status post dual-chamber pacemaker Telemetry at present showed paced rhythm with heart rate between 7080 CODE STATUS: Full code DVT prophylaxis: Coumadin Disposition: Stable to be discharged home today Total Time Total Time Spent Total Time Spent (In Minutes): 35 mins Total Time Includes: Examination of the Patient, Discharge Planning, Medication Reconciliation and Communication With Other Providers Discharge Plan Discharge Items Patient Disposition: Home - Self-Care Reason For Visit: CP Discharge Diagnosis: PALPITATION , AFIB /A FLUTTER Activity: Resume your previous activity Non-emergency contact: Primary Care Provider Call non-emergency contact if: you have any medication questions Follow-up/Referrals: David Jewell DO [Health Informatics Specialist] - Celestine Moya MD [Physician] - (Follow up with Neurology in 4-6 weeks ) Blake Reyes DO [Primary Care Provider] - 05/03/19 11:20 am Diet: Heart Healthy Addtl Attending Provider Instructions: You are started on new medications: 1.Sotalol 80 mg take 1 tablet twice daily-for heart rate and rhythm control 2. Aspirin 81 mg daily -take with food , for stroke prevention Addtl Assistant General Manager Provider Instructions: Coronavirus disease 2019 (COVID-19) is a virus that causes a respiratory illness. It is caused by a coronavirus called 2019 novel coronavirus (2019- nCoV). There are many types of coronavirus. Coronaviruses are a very common cause of bronchitis. They may sometimes cause lung infection(pneumonia). Symptoms can range from mild to severe respiratory illness. These viruses are also foundin some animals. COVID-19 was first found in people in [facility], in late 2019. In 2020, several cases of COVID-19 have been confirmed in the [place] Public health officials are working to find the source. How the virus spreads is not yet fully known. It may be spread through droplets of fluid that a person coughs or sneezes into the air. It may be spread if you touch a surface with virus on it, such as a handle or object, and then touch your mouth. What are the symptoms of COVID-19? Some people have no symptoms or mild symptoms. Symptoms may appear 2 to 14 days after contact with the virus. Symptoms can include: Fever Coughing Trouble breathing What are possible complications from COVID-19? In many cases, this virus can cause infection (pneumonia) in both lungs. In some cases, this can cause . How is COVID-19 diagnosed? Your healthcare provider will ask about your symptoms. He or she will also ask about your recent travel and contact with sick people. Testing for the virus is only done through the CDC. If yourhealthcare provider thinks you may have COVID- 19, he or she will work with your local health department and the CDC on testing. Follow all instructions from your healthcare provider. COVID-19 is diagnosed by: Nasal and throat swab. A cotton-tipped swab is wiped inside your nose or throat. This is done to check for viruses in your nasal mucus. Sputum culture. A small sample of mucus coughed from your lungs (sputum) is collected if you have a cough. It is checked for the virus. How is COVID-19 treated? There is currently no medicine to treat the virus. Treatment is done to help your body while it fights the virus. This is known as supportive care. Supportive care may include: Pain medicine. These include acetaminophen and ibuprofen. They are used to help ease pain and reduce fever. Bed rest. This helps your body fight the illness. For severe illness, you may need to stay in the hospital. Care during severe illness may include: IV (intravenous) fluids.These are given through a vein to help keep your body hydrated. Oxygen. Supplemental oxygen or ventilation with a breathing machine (ventilator) may be given. This is done to keep enough oxygen in your body. Are you at risk for COVID-19? If youve been to a place where people have been sick with this virus, you are at risk for infection. You are at risk if you: Recently traveled to an affected area Had contact with a sick person who recently traveled to this area Had contact with a person who was diagnosed with COVID-19 How can COVID-19 be prevented? There is no vaccine yet. The best prevention is to not have contact with the virus. The CDC advises that people should not travel to areas where there are COVID-19 outbreaks right now for any reason that is not urgent. To help prevent spreading the infection, wash your hands often, or use an alcohol-basedhand mail messenger. If you are in an area with COVID-19: Wash your hands often. Or use an alcohol-based hand mail messenger often. Only touch your eyes, nose, or mouth with clean hands. Dont have contact with people who are sick. Follow local instructions about being in public. For example, you may be told to not use public transport for a period of time. Stay away from markets that have live or animals. Wash your hands after touching any animals. Don't touch animals that may be sick. Dont share eating or drinking tools with sick people. Dont kiss someone who is sick. Clean surfaces often with disinfectant. If you were in an area with COVID-19 in the last 14 days: Call your healthcare provider. He or she can talk with local health staff to see what action may be needed. Follow all instructions from your provider. Take your temperature every morning and evening for at least 14 days. This is to check for fever. Keep a record of the readings. Keep watch for symptoms of the virus. Tell your provider right away if you have symptoms. If you were in an area with COVID-19 and have a fever or other symptoms: Dont panic. Keep in mind that other illnesses can cause similar symptoms. Stay away from work, school, and public places. Limit physical contact with family members. Don't kiss anyone or share eating or drinking utensils. Clean surfaces you touch with disinfectant. This is to help prevent the virus from spreading. Call your healthcare provider. Explain that you have been exposed to COVID-19 and have symptoms. Do this before going to any hospital. Wait for instructions. Keep in mind that healthcare staff may wear protective equipment such as masks, gowns, gloves, and eye protection. You may be put in a separate room. This is to prevent the possible virus from spreading. Tell the healthcare staff about recent travel. This includes local travel on public transport. Staff may need to find other people you have been in contact with. Follow all instructions the healthcare staff give you. If you have been diagnosed with COVID-19 Follow all instructions from your healthcare provider. Dont leave your home, except to get medical care. Call your healthcare providers office before going. They can prepare and give you instructions. This will help prevent the virus from spreading. Dont go to work, school, or public areas. Dont use public transport or taxis. Stay away from other people in your home. Have them wear face masks around you. Dont share household items or food. Wear a face mask if you can. This includes at home or in a medical facility. Cover your face with a tissue when you cough or sneeze. Throw the tissue away. Wash your hands. Wash your hands often. Caregivers should: Follow all instructions from healthcare staff. Wear a face mask and protective clothing as advised. Wash hands often. Keep track of the sick persons symptoms. Clean surfaces, fabrics, and laundry thoroughly. Keep other people away from the sick person. When to call your healthcare provider Call your healthcare provider: If youve recently traveled and have symptoms If you have been diagnosed with COVID-19 and your symptoms are worse To learn more To find out more about COVID-19, visit the CDC website at www.cd c.gov/coronavirus/2019-ncov/index.html. 5514-4870 [employer]. [address] [place] [address]. All rights reserved. This information is not intended as a substitute for professional medical care. Always follow your healthcare professional's instructions. This information has been adapted from [employer] Pending Studies at Discharge: No Stand-Alone Forms: My [facility] [employer], Smoking Cessation Medications and DC Order Prescriptions: New sotalol 80 mg Tablet 80 mg PO BID Qty: 60 RF: 1 aspirin 81 mg tablet,delayed release (DR/EC) 81 mg PO DAILY Qty: 30 RF: 3 Continued multivitamin Tablet 1 tab PO DAILY RF: 0 acetaminophen [Tylenol Extra Strength] 500 mg Tablet 1,000 mg PO TID PRN (Reason: Pain) RF: 0 levothyroxine 100 mcg Tablet 100 mcg PO DAILY RF: 0 calcium carbonate-vitamin D3 1,000 mg(2,500 mg)-800 unit Tablet 1 tab PO QAM RF: 0 oxycodone 5 mg tablet 5 mg PO Q12 PRN (Reason: Pain) RF: 0 warfarin [Coumadin] 5 mg Tablet 2.5 mg PO [id number] RF: 0 diltiazem HCl 120 mg Capsule,Extended Release 24hr 120 mg PO QAM Qty: 30 RF: 0 fluoxetine 40 mg capsule 40 mg PO DAILY RF: 0 ferrous sulfate 325 mg (65 mg iron) Tablet 325 mg PO DAILY RF: 0 warfarin 5 mg tablet 5 mg PO .QFRIDAY RF: 0 Complete 14 mg iron- 400 mcg Tablet 1 tab PO DAILY RF: 0 Discharge Orders: Discharge Order (Routine); Ordered 05/01/19 Ordered By: Shaneka Courtney/Other Patient Handouts: What to Know When TakingWarfarin Admission Data Admit Date/Time: 04/29/19 07:18 Attending Provider: Shaneka Lua Admit Provider: Waldo Eason Primary Care Provider: Blake Reyes Other Providers: Waldo Eason ; Janet Garay ; Janet Del Rosario ; Celestine Moya ; Janet Kennedy ; Rosendo Lr Other Interventions: Discharge Summary Assessment (RN) Last Done: 05/01/19 17:39 DC Date/Time DO NOT enter until pt leaves facility: 05/01/19 18:40
[2019-05-04] MEDS ORDERED: WARFARIN SOD 5 MG TAB PO SCH (16:00)
== END 2019-05-01 18:40 | disposition home or self-care (01) | DRG 310 ==
LOC: 2S 21:33 → ED 21:33 → 2S 04-28 01:07